=== PATIENT | female | born 1930 | race Caucasian/White ===

== ENCOUNTER 2016-11-29 16:35 | Emergency (ER) | payer BC, MEDICARE ==
--- NOTE | 2016-11-29 19:27 | RAD ---
Indication: Head injury. CT of the brain was performed without IV contrast. Ventricular structures are midline. No midline shift is noted. The extra-axial spaces are unremarkable. There is central and cortical atrophy. Periventricular lucency consistent with chronic ischemic White matter change is noted. Mastoid air cells and paranasal sinuses are otherwise unremarkable. IMPRESSION: There is no evidence of intracranial mass or hemorrhage. Chronic ischemic White matter change.
--- NOTE | 2016-11-29 19:32 | RAD ---
Indication: Neck pain, neck injury. CT of the cervical spine was obtained in the axial plane. Sagittal and coronal reconstructed images were obtained. Mastoid air cells are otherwise well aerated without evidence of basilar skull fracture. The C1 ring is intact. Calcification of the transverse ligament is noted. This is likely due to degenerative changes of the atlantoaxial joint. There is straightening of the normal lordosis. No compression fracture is noted. At C2-C3 spondylitic ridge is noted. Right facet arthropathy is noted. No central or foraminal stenosis is noted. At C3-C4 spondylitic ridge with right uncovertebral joint hypertrophy and right facet arthropathy is noted. No central or foraminal stenosis is noted. At C4-C5 there is grade 1 spondylolisthesis noted. Degenerative joint disease is noted. Bilateral facet arthropathy is noted. There is suggestion of bilateral foraminal stenosis at this level. At C5-C6 spondylitic ridge flattens the thecal sac. Right uncovertebral joint hypertrophy narrows the right foramen. No central stenosis is noted. At C6-C7 degenerative disc disease is noted. Spondylitic ridge flattens the thecal sac. Right uncovertebral joint hypertrophy and right facet arthropathy results in right foraminal stenosis. At C7-T1 facet arthropathy is noted. No central or foraminal stenosis is noted. There may be grade 1 spondylolisthesis of C7 on T1. IMPRESSION: THERE IS NO FRACTURE OF THE CERVICAL SPINE ALTHOUGH THERE IS GRADE 1 SPONDYLOLISTHESIS OF C4 ON 5 AND C6 ON C7 LIKELY DUE TO FACET ARTHROPATHY. NO EVIDENCE OF FACET MALALIGNMENT IS NOTED.??MULTILEVEL DEGENERATIVE DISC DISEASE IS NOTED AT C3 C4-C5, C5-C6 AND C6-C7 WITH RIGHT FORAMINAL STENOSIS AT C5-C6 AND C6-C7.
[2016-11-29 20:18] VITALS: BP 153/73
--- NOTE | 2016-11-30 17:20 | ED ---
Arlene Pelayo Alok, scribed for Armando Roy MD on 11/29/16 at 1918 . Head Injury - HPI Summary HPI Summary: [id number] presents to the ED following a head impact this morning. The patient reportedly tripped over her dog at her home falling on her face on the rug. Pt notes neck pain. Pt denies LOC. Pt denies nausea or visual changes. Pt takes Xerolto for A-fib. - History Of Current Complaint Chief Complaint: EDHeadInjury Stated Complaint: FALL/HEAD INJURY Time Seen by Provider: 11/29/16 18:36 Hx Obtained From: Patient Mechanism Of Injury: Fall From A Standing Position Onset/Duration: Started Hours Ago, Traumatic, Still Present Onset of Pain: Immediate Severity Currently: Moderate Severity Initially: Moderate Pain Intensity: 2 Pain Scale Used: 0-10 Numeric Location of Head Injury: Frontal Associated Signs And Symptoms: Neck Pain - Allergies/Home Medications Allergies/Adverse Reactions: Allergies Allergy/AdvReac Type Severity Reaction Status Date / Time Penicillin V Allergy Severe Swelling Verified 10/21/16 11:14 [From Penicillin VK Of Potassium] Face,Lips,& Throat Shellfish-derived Products Allergy Pain Verified 10/21/16 11:14 Vancomycin AdvReac Severe Itching Verified 10/21/16 11:14 PMH/Surg Hx/FS Hx/Imm Hx Endocrine/Hematology History: Denies: Hx Diabetes, Hx Thyroid Disease, Hx Anemia, Hx Unexplained Bleeding Cardiovascular History: Reports: Hx Congestive Heart Failure, Hx Hypercholesterolemia, Hx Hypertension - ON MEDS, Other Cardiovascular Problems/ Disorders - HX OF A FIB AND MULTIPLE CARDIOVERSIONS; on xarelto Denies: Hx Aneurysm, Hx Angina, Hx Angioplasty, Hx Auto Implanted Cardiovert Defib, Hx Cardiac Arrest, Hx Cardiomegaly, Hx Congenital Heart Disease, Hx Coronary Artery Disease, Hx Deep Vein Thrombosis, Hx Hypotension, Hx Pacemaker/ ICD, Hx Peripheral Vascular Disease, Hx Rheumatic Fever, Hx Syncope, Hx Valvular Heart Disease Respiratory History: Reports: Hx Chronic Obstructive Pulmonary Disease (COPD), Hx Pneumonia Denies: Hx Asthma, Hx Chronic Bronchitis, Hx Cystic Fibrosis, Hx Lung Cancer , Hx Pleural Effusion, Hx Pulmonary Edema, Hx Pulmonary Embolism, Hx Seasonal Allergies, Hx Sleep Apnea, Other Respiratory Problems/Disorders GI History: Denies: Hx Ulcer, Other GI Disorders History: Denies: Hx Dialysis Musculoskeletal History: Reports: Hx Arthritis - ALL OVER Denies: Hx Osteoporosis, Other Musculoskeletal History Sensory History: Reports: Hx Contacts or Glasses Denies: Hx Cataracts, Hx Eye Injury, Hx Eye Prosthesis, Hx Glaucoma, Hx Macular Degeneration, Hx Vision Problem, Hx Deafness, Hx Hearing Aid, Hx Hearing Problem, Other Sensory Impairments Opthamlomology History: Reports: Hx Contacts or Glasses Denies: Hx Cataracts, Hx Eye Injury, Hx Eye Prosthesis, Hx Glaucoma, Hx Macular Degeneration, Hx Vision Problem, Other Sensory Impairments Neurological History: Reports: Other Neuro Impairments/Disorders - neuropathy right lower leg. PAIN CLINIC PT. Denies: Hx Dementia, Hx Developmental Delay, Hx Headaches, Hx Migraine, Hx Seizures, Hx Spinal Cord Injury, Hx Transient Ischemic Attacks (TIA) Psychiatric History: Reports: Other Psychiatric Issues/Disorders - claustrophobia Denies: Hx Panic Disorder - Cancer History Hx Chemotherapy: No Hx Radiation Therapy: No - Surgical History Surgery Procedure, Year, and Place: LT knee replacement 2011,[facility] [place]. rotator cuff right 2002 [facility]. bilat carpal tunnel releases 2002 [facility]. 1992-LIPOMA REMOVED FROM BACK. BILATERAL CATARACTS [facility]. RT INGUINAL HERNIORRHAPHY 06/14/15 [facility]. MOHS TO NOSE-2013/[facility] [place] Hx Anesthesia Reactions: Yes - ATRIAL FIB W/HERNIA & KNEE/CARDIOVERTED PER PT - Immunization History Date of Tetanus Vaccine: 05/2014 Date of Influenza Vaccine: 2014 Infectious Disease History: No Infectious Disease History: Denies: Hx Hepatitis, Hx Human Immunodeficiency Virus (HIV), Hx Tuberculosis , Traveled Outside the in Last 30 Days - Family History Known Family History: Negative: Cardiac Disease - Social History Occupation: Retired Alcohol Use: None Alcohol Amount: ONE GLASS WHITE WINE Substance Use Type: Reports: None Substance Use Comment - Amount & Last Used: ONE GLASS WHITE WINE Smoking Status (MU): Former Smoker Type: Cigarettes Amount Used/How Often: 1/2 PPD Have You Smoked in the Last Year: Yes Review of Systems Negative: Fever Negative: Blurred Vision Negative: Nausea Positive: Other - neck pain Positive: Bruising All Other Systems Reviewed And Are Negative: Yes Physical Exam Triage Information Reviewed: Yes Vital Signs On Initial Exam: Initial Vitals Temp Pulse Resp BP Pulse Ox 98.0 F 98 16 125/82 96 11/29/16 16:52 11/29/16 16:52 11/29/16 16:52 11/29/16 16:52 11/29/16 16:52 Vital Signs Reviewed: Yes Appearance: Positive: Well-Appearing, No Pain Distress Skin: Positive: Warm, Skin Color Reflects Adequate Perfusion, Dry, Other - Ecchymosis over nose and forehead Head/Face: Positive: Other - Ecchymosis over nose and forehead Eyes: Positive: Normal ENT: Positive: Normal ENT inspection Neck: Positive: Other: - Tender cervical midline of neck Respiratory/Lung Sounds: Positive: Clear to Auscultation, Breath Sounds Present Cardiovascular: Positive: RRR Abdomen Description: Positive: Nontender, Soft Bowel Sounds: Positive: Present Musculoskeletal: Positive: Other - Tender cervical midline of neck Neurological: Positive: Normal Psychiatric: Positive: Normal, Affect/Mood Appropriate - Nicolette Coma Scale Coma Scale Total: 15 Diagnostics - Vital Signs Vital Signs Temp Pulse Resp BP Pulse Ox 11/29/16 17:37 97.9 F 78 18 133/75 95 11/29/16 16:52 98.0 F 98 16 125/82 96 - Laboratory Lab Statement: Any lab studies that have been ordered have been reviewed, and results considered in the medical decision making process. - CT Brain CT CT Interpretation: Positive (See Comments) - IMPRESSION: There is no evidence of intracranial mass or hemorrhage. Chronic ischemic White matter change. CT Interpretation Completed By: Radiologist Cervical Spine CT CT Interpretation: Positive (See Comments) - IMPRESSION: THERE IS NO FRACTURE OF THE CERVICAL SPINE ALTHOUGH THERE IS GRADE 1 SPONDYLOLISTHESIS OF C4 ON 5 AND C6 ON C7 LIKELY DUE TO FACET ARTHROPATHY. NO EVIDENCE OF FACET MALALIGNMENT IS NOTED.??MULTILEVEL DEGENERATIVE DISC DISEASE IS NOTED AT C3 C4-C5, C5-C6 AND C6-C7 WITH RIGHT FORAMINAL STENOSIS AT C5-C6 AND C6-C7. CT Interpretation Completed By: Radiologist Head Injury Course/Dx Course Of Treatment: Ms. Nath tripped over her dog and hit her head on the floor. She has ecchymosis around her nose without a septal hematoma. She is tender in her para cervicle area. CT scans are negative (she is on xarelto). - Diagnoses Provider Diagnoses: Head injury due to trauma, Cervical strain, acute Discharge - Discharge Plan Condition: Stable Disposition: HOME Patient Education Materials: Cervical Strain (ED) Referrals: Lourdes Weinstein MD [Primary Care Provider] - The documentation as recorded by the Zohaib hsiehe,Raji accurately reflects the service I personally performed and the decisions made by me, Armando Roy MD.
== END 2016-11-29 20:35 | disposition home or self-care (01) ==
LOC: ED 16:35
DX: S09.90XA Unspecified injury of head, initial encounter (principal); S16.1XXA Strain of muscle, fascia and tendon at neck level, initial encounter; M54.2 Cervicalgia; Z87.891 Personal history of nicotine dependence; W19.XXXA Unspecified fall, initial encounter; Y93.9 Activity, unspecified; Y92.9 Unspecified place or not applicable
CPT/HCPCS: 70450; 72125; 99282

== ENCOUNTER 2017-01-30 13:32 | Emergency (ER) | payer BC, MEDICARE ==
--- NOTE | 2017-01-30 14:15 | ED ---
Lower Extremity - HPI Summary HPI Summary: Pt here w/ abrupt onset Lt knee pain this morning. Went about her morning routine (nothing more, nothing less) and as she was sitting reading the paper, her knee started to hurt. When she got up, pain was worse w/ weight bearing. Put her knee brace on from years ago and tried to go to her dr's appt this morning but pain was too bad w/ weight bearing, she decided to come here. No pain at rest and no swelling, redness or fever to touch - no fever, chills, N/V /D. Denies numbness, tingling, weakness. Pain w/ flexion. No trauma. H/o TKR here "years ago" - no complications. Tried tylenol w/ minimal relief. Can't take NSAID's as she's on anti-coag (xarelto) for a. fib. - History of Current Complaint Chief Complaint: EDExtremityLower Stated Complaint: LT KNEE PAIN/UNABLE TO WALK Time Seen by Provider: 01/30/17 13:39 Hx Obtained From: Patient Pain Intensity: 9 - Allergies/Home Medications Allergies/Adverse Reactions: Allergies Allergy/AdvReac Type Severity Reaction Status Date / Time Penicillin V Allergy Severe Swelling Verified 12/12/16 11:24 [From Penicillin VK Of Potassium] Face,Lips,& Throat Shellfish-derived Products Allergy Pain Verified 12/12/16 11:24 Vancomycin AdvReac Severe Itching Verified 12/12/16 11:24 PMH/Surg Hx/FS Hx/Imm Hx Previously Healthy: Yes Endocrine/Hematology History: Reports: Hx Anticoagulant Therapy - xarelto Denies: Hx Diabetes, Hx Thyroid Disease, Hx Anemia, Hx Unexplained Bleeding Cardiovascular History: Reports: Hx Atrial Fibrillation, Hx Congestive Heart Failure, Hx Hypercholesterolemia, Hx Hypertension - ON MEDS, Other Cardiovascular Problems/Disorders - HX OF A FIB AND MULTIPLE CARDIOVERSIONS; on xarelto Denies: Hx Aneurysm, Hx Angina, Hx Angioplasty, Hx Auto Implanted Cardiovert Defib, Hx Cardiac Arrest, Hx Cardiomegaly, Hx Congenital Heart Disease, Hx Coronary Artery Disease, Hx Deep Vein Thrombosis, Hx Hypotension, Hx Pacemaker/ ICD, Hx Peripheral Vascular Disease, Hx Rheumatic Fever, Hx Syncope, Hx Valvular Heart Disease Respiratory History: Reports: Hx Chronic Obstructive Pulmonary Disease (COPD), Hx Pneumonia Denies: Hx Asthma, Hx Chronic Bronchitis, Hx Cystic Fibrosis, Hx Lung Cancer , Hx Pleural Effusion, Hx Pulmonary Edema, Hx Pulmonary Embolism, Hx Seasonal Allergies, Hx Sleep Apnea, Other Respiratory Problems/Disorders GI History: Denies: Hx Ulcer, Other GI Disorders History: Denies: Hx Dialysis Musculoskeletal History: Reports: Hx Arthritis - ALL OVER Denies: Hx Osteoporosis, Other Musculoskeletal History Sensory History: Reports: Hx Contacts or Glasses Denies: Hx Cataracts, Hx Eye Injury, Hx Eye Prosthesis, Hx Glaucoma, Hx Macular Degeneration, Hx Vision Problem, Hx Deafness, Hx Hearing Aid, Hx Hearing Problem, Other Sensory Impairments Opthamlomology History: Reports: Hx Contacts or Glasses Denies: Hx Cataracts, Hx Eye Injury, Hx Eye Prosthesis, Hx Glaucoma, Hx Macular Degeneration, Hx Vision Problem, Other Sensory Impairments Neurological History: Reports: Other Neuro Impairments/Disorders - neuropathy right lower leg. PAIN CLINIC PT. Denies: Hx Dementia, Hx Developmental Delay, Hx Headaches, Hx Migraine, Hx Seizures, Hx Spinal Cord Injury, Hx Transient Ischemic Attacks (TIA) Psychiatric History: Reports: Other Psychiatric Issues/Disorders - claustrophobia Denies: Hx Panic Disorder - Cancer History Hx Chemotherapy: No Hx Radiation Therapy: No - Surgical History Surgery Procedure, Year, and Place: LT knee replacement 2011,[facility] [place]. rotator cuff right 2002 [facility]. bilat carpal tunnel releases 2002 [facility]. 1992-LIPOMA REMOVED FROM BACK. BILATERAL CATARACTS [facility]. RT INGUINAL HERNIORRHAPHY 06/14/15 [facility]. MOHS TO NOSE-2013/ Hx Anesthesia Reactions: Yes - ATRIAL FIB W/HERNIA & KNEE/CARDIOVERTED PER PT - Immunization History Date of Tetanus Vaccine: 05/2014 Date of Influenza Vaccine: 2014 Infectious Disease History: Denies: Hx Hepatitis, Hx Human Immunodeficiency Virus (HIV), Hx Tuberculosis , Traveled Outside the [place] in Last 30 Days - Family History Known Family History: Negative: Cardiac Disease - Social History Occupation: Retired Lives: Alone Alcohol Use: None Alcohol Amount: ONE GLASS WHITE WINE Hx Substance Use: No Substance Use Type: Reports: None Substance Use Comment - Amount & Last Used: ONE GLASS WHITE WINE Hx Tobacco Use: Yes Smoking Status (MU): Former Smoker Type: Cigarettes Amount Used/How Often: 1/2 PPD Have You Smoked in the Last Year: Yes Review of Systems Constitutional: Negative Negative: Fever, Chills, Fatigue Cardiovascular: Negative Negative: Chest Pain Respiratory: Negative Negative: Shortness Of Breath Gastrointestinal: Negative Negative: Abdominal Pain, Vomiting, Diarrhea, Nausea Negative: dysuria Musculoskeletal: Other - see HPI Skin: Negative Neurological: Negative Psychological: Normal All Other Systems Reviewed And Are Negative: Yes Physical Exam Triage Information Reviewed: Yes Vital Signs On Initial Exam: Initial Vitals Temp Pulse Resp BP Pulse Ox 97.7 F 90 17 118/65 96 01/30/17 13:35 01/30/17 13:35 01/30/17 13:35 01/30/17 13:35 01/30/17 13:35 Vital Signs Reviewed: Yes Appearance: Positive: Well-Appearing, No Pain Distress, Well-Nourished Skin: Positive: Warm, Dry - old healed surgical scar over Lt anterior knee - no erythema, no edema,no ecchymosis, no fever to touch, no lesions Head/Face: Positive: Normal Head/Face Inspection Eyes: Positive: EOMI ENT: Positive: Hearing grossly normal Respiratory/Lung Sounds: Positive: Breath Sounds Present Cardiovascular: Positive: Pulses are Symmetrical in both Upper and Lower Extremities Musculoskeletal: Positive: Limited @ - Lt knee flexion limited d/t pain - otherwise, moving ankle/toes well here - no pain w/ hip movement; knee is NTTP as are tibia/fibula/femur Neurological: Positive: Normal, Sensory/Motor Intact, Alert, Oriented to Person Place, Time, CN Intact II-III Psychiatric: Positive: Normal Diagnostics - Vital Signs Vital Signs Temp Pulse Resp BP Pulse Ox 01/30/17 13:35 97.7 F 90 17 118/65 96 - Laboratory Result Diagrams: 01/30/17 15:55 01/30/17 15:55 Lab Statement: Any lab studies that have been ordered have been reviewed, and results considered in the medical decision making process. Lower Extremity Course/Dx - Course Course Of Treatment: Pt presents w/ sudden onset Lt knee pain which progressively worsened with weight bearing. No s/sx of infection or trauma - imaging and labs are unremarkable for acute pathology. U/S was not performed as pt is complaining of anterior knee pain and there is no edema, no fever to touch , no skin changes here - she is also on xarelto for a. fib. Since she has a TKR here, advised non-weight bearing and close f/u w/ ortho. In the meantime, discussed what she would like for pain control - she reports narcotics hit her hard - does not want these. Would like to try tylenol and prednisone. Agrees to avoid weight bearing. Will call ortho Thursday and get appt - they already offered her one Thursday so she's hoping they can still fit her in. Reviewed danger s/sx of when to return to ED. Pt and family agree w/ plan. - Diagnoses Provider Diagnoses: Left knee pain Discharge - Discharge Plan Condition: Stable Disposition: HOME Prescriptions: predniSONE TAB* [Deltasone TAB*] 20 mg PO DAILY #4 tab Patient Education Materials: Crutch Instructions (ED), Knee Pain (ED) Referrals: Lourdes Weinstein MD [Primary Care Provider] - Additional Instructions: NO WEIGHT BEARING until seen by orthopedics Thursday - call Thursday for appointment. You may have damage to your internal hardware and weight bearing may cause further damage. Follow-up in ED if pain is poorly controlled, you develop redness/swelling/fever /chills/streaking up leg
[2017-01-30 14:28] VITALS: BP 134/68
--- NOTE | 2017-01-30 15:02 | RAD ---
HISTORY: Left knee pain. COMPARISONS: June 06, 2015 VIEWS: 4, Frontal, lateral, axial, and oblique views of the left knee FINDINGS: BONE DENSITY: Normal. BONES: The patient is status post left knee arthroplasty. There is no hardware failure or osteolysis. JOINTS: The patient is status post left knee arthroplasty. ALIGNMENT: There is no dislocation. SOFT TISSUES: There is peripheral arterial calcification. OTHER FINDINGS: None. IMPRESSION: 1. STATUS POST LEFT KNEE ARTHROPLASTY. 2. PERIPHERAL ARTERIAL DISEASE. 3. NO ACUTE OSSEOUS INJURY. IF SYMPTOMS PERSIST, RECOMMEND REPEAT IMAGING
[2017-01-30 16:02] LABS: Hematocrit 45 % (35-47); Hemoglobin 14.8 g/dl (12.0-16.0); Mean Corpuscular HGB Conc 33 g/dl (31-36); Mean Corpuscular Hemoglobin 30 pg (27-31); Mean Corpuscular Volume 90 fL (80-97); Mean Platelet Volume 8 um3 (7.4-10.4); Red Cell Distribution Width 14 % (10.5-15); White Blood Count 7.2 10^3/ul (3.5-10.8)
[2017-01-30 16:17] LABS: Albumin 4.1 g/dL (3.2-5.2); BUN/Creatinine Ratio 16.7 (8-20); C Reactive Protein 3.36 mg/L (< 5.00); Calcium 9.6 mg/dL (8.6-10.3); EGFR African American 99.2 (>60); EGFR Non-African American 77.2 (>60); Globulin 2.7 g/dL (2-4); Potassium 3.4 mmol/L (3.5-5.0); Total Bilirubin 0.6 mg/dL (0.2-1.0); Total Protein 6.8 g/dL (6.4-8.9); Uric Acid 3.3 mg/dL (2.3-6.6)
[2017-01-30] MEDS ORDERED: predniSONE TAB* 20 MG PO ONE (17:47)
[2017-01-30] MEDS ORDERED: Acetaminophen TAB* 325 MG PO ONE (17:48)
== END 2017-01-30 18:32 | disposition home or self-care (01) ==
LOC: ED 13:32
DX: M25.562 Pain in left knee (principal); I48.91 Unspecified atrial fibrillation; Z79.01 Long term (current) use of anticoagulants; I50.9 Heart failure, unspecified; E78.00 Pure hypercholesterolemia, unspecified; I10 Essential (primary) hypertension; Z88.0 Allergy status to penicillin; Z87.891 Personal history of nicotine dependence; I73.9 Peripheral vascular disease, unspecified
CPT/HCPCS: 36415; 80053; 83605; 84550; 85025; 86140; 99282; A9270-GY; J7512

== ENCOUNTER 2018-11-11 13:34 | Emergency (ER) | payer MEDICARE, OTHER ==
--- OUTSIDE RECORDS SUMMARY | 2018-11-11 13:39 | XMS REPORT | Continuity of Care Document ---
:1930 External Reference #:[id number] Author Name Nadia Meléndez PA-C Address [address] [place] [address] [place] [address] Care Team Providers Name Role Phone Lourdes Weinstein MD Care Team Information Diamond Driller Unavailable Lourdes Weinstein MD Primary Care Physician Unavailable Payers Date Identification Numbers Payment Provider Subscriber Policy Number: [id number] Medicare [facility] PayID: [id number] [facility] [address] [place] [address] Policy Number: [id number] [employer] [facility] PayID: [id number] [address] [place] [address] Problems Active Problems Provider Date Atrial fibrillation Javier Mills MD Onset: 11/25/2011 Note: on discharge day from left TNR developed a fib; cardioverted 7 different times over a month; on Tikosyn (started during 3 day admission Feb 2012) and Xarelto Apr 2013 after Pradaxa for 5 months; no blood clots ever in recent or remote past; She can feel fibrillation which usually lasts a couple of days every couple of months; Low back pain Javier Mills MD Onset: 05/27/2000 Note: sees Dr Caputo since 1998; also carpal tunnel w/u Essential hypertension Javier Mills MD Onset: 05/27/2001 Note: no complications Tobacco user Javier Mills MD Onset: 05/27/2007 Note: quit in 2007 Zenker's diverticulum Lourdes Weinstein MD Onset: 01/02/2016 Electrocardiogram abnormal Nelson Champion MD Onset: 08/25/2013 Incontinence of feces Nadia Meléndez PA-C Onset: 06/21/2018 Social History Type Date Description Comments Sex Unknown Tobacco Use Start: Unknown End: Unknown Patient is a former smoker Smoking Status Reviewed: 10/28/18 Patient is a former smoker Allergies, Adverse Reactions, Alerts Active Allergies Reaction Severity Comments Date Penicillin 05/27/2013 Vancomycin severe itching 09/14/2015 Shellfish-Derived Products pain in feet gout 08/25/2013 Nitrofurantoin "HOT RASH" 06/21/2018 Medications Active Medications SIG Qnty Indications Ordering Date Provider Xarelto 1 by mouth every 90tabs Charlotte Championlm 11/21/2014 15mg Tablets day DMD Metoprolol Tartrate 1 Tablet qod 90tabs Charlotte Championlm 02/23/2013 25mg DMD Tablets Gabapentin prn pain Takes 120caps Unknown 02/19/2010 100mg Capsules 300 mg at hs Metaxalone take 1 tablet 3 30tabs Unknown 02/16/2007 800mg Tablets times a day as needed Culturelle Unknown Citracal +D3 Unknown Chlorthalidone Thu-Thu-Thu Dennis Championcolm 25mg DMD Tablets Digoxin Foster,Thelma,[employer] 125mcg Tablets Cartia XT Mauser, 180mg Caps ER MD True 24HR Fenofibrate Corinna, 48mg Tablets MD Chandu Freed apply to affected Unknown 1% Gel area twice a day, as needed Spiriva Handihaler 1 inhalation by 3caps Unknown 18mcg mouth every Capsules evening Advair Diskus 2 puffs once 60units Unknown daily 250-50mcg/Dose Aerosol Tylenol prn Unknown 325mg Tablets Vitamin C 1 po qd Unknown 500mg Tablets History Medications Amiodarone HCL 1/2 tab by 45tabs I48.0 Charlotte Championlm Dyana, 09/22/2013 - 200mg mouth every day 06/20/2018 Tablets Advair Diskus Unknown - 01/16/2016 Metoprolol Tartrate Unknown - 01/16/2016 Tikosyn Unknown - 01/16/2016 Xarelto Unknown - 01/16/2016 Allopurinol Unknown - 01/16/2016 Vitamin C Unknown - 06/20/2018 Xopenex HFA 2 puff daily Kevin Bell MD - 45mcg/Act prn 06/20/2018 Aerosol Vital Signs Date Vital Result Comment 10/28/2018 1:38pm Height 63 inches 5'3" Weight 118.00 lb BP Systolic 133 mmHg BP Diastolic 94 mmHg Heart Rate 91 /min BMI (Body Mass Index) 20.9 kg/m2 06/21/2018 10:43am Height 63 inches 5'3" Weight 119.00 lb BP Systolic 122 mmHg BP Diastolic 70 mmHg Heart Rate 98 /min BMI (Body Mass Index) 21.1 kg/m2 02/27/2016 3:57pm Height 63.25 inches 5'3.25" Weight 125.00 lb BP Systolic 158 mmHg BP Diastolic 74 mmHg Heart Rate 65 /min BMI (Body Mass Index) 22.0 kg/m2 01/16/2016 9:11am Height 63.25 inches 5'3.25" Weight 123.50 lb BP Systolic 142 mmHg BP Diastolic 78 mmHg Heart Rate 54 /min BMI (Body Mass Index) 21.7 kg/m2 05/27/2013 11:55am Height 63.25 inches 5'3.25" Weight 131.00 lb BP Systolic 118 mmHg BP Diastolic 82 mmHg Heart Rate 19600 /min irregular BMI (Body Mass Index) 23.0 kg/m2 Results Test Date Facility Test Result H/L Range Note Laboratory test 09/11/2015 N2N/CCD Import C Reactive 35.32 mg/L High < 5.00 1 finding Protein Lyme Disease Serology Negative Negative 2 Laboratory test 12/06/2014 N2N/CCD Import TSH (Thyroid 1.12 ?IU/mL 0.34- 5.60 finding Stim Horm) BMP Basic 12/06/2014 N2N/CCD Import Anion Gap 6 mmol/L 2-11 Metabolic Panel (8) BUN/Creatinine Ratio 24.2 High 8-20 Blood Urea Nitrogen 15 mg/dL 6-24 Calcium 9.3 mg/dL 8.6-10.3 Chloride 106 mmol/L 101-111 Co2 Carbon Dioxide 28 mmol/L 22-32 Creatinine 0.62 mg/dL 0.51-0.95 Egfr 118.8 >60 Egfr Non- 92.4 >60 Glucose 106 mg/dL High 70-100 Potassium 4.1 mmol/L 3.5-5.0 Sodium 140 mmol/L 133-145 3 Laboratory test finding 09/06/2013 N2N/CCD Import Anion Gap 6 mmol/L 2- 11 BUN/Creatinine Ratio 18.8 8-20 Blood Urea Nitrogen 16 mg/dL 6-24 Calcium 9.4 mg/dL 8.6-10.3 Chloride 104 mmol/L 101-111 Co2 Carbon Dioxide 29 mmol/L 22-32 Creatinine 0.85 mg/dL 0.51-0.95 Egfr 82.8 >60 Egfr Non- 64.4 >60 Glucose 90 mg/dL 70-100 Hematocrit 43 % 35-47 Hemoglobin 14.3 g/dL 12.0-16.0 Mean Corpuscular HGB Conc 33 g/dL 31-36 Mean Corpuscular Hemoglobin 29 pg 27-31 Mean Corpuscular Volume 88 fL 80-97 Mean Platelet Volume 8 um3 7.4-10.4 Platelet Count 336 10^3/uL 150-450 Potassium 4.6 mmol/L 3.7-5.6 Red Blood Count 4.90 10^6/uL 4.0-5.4 Red Cell Distribution Width 15 % 10.5-15 Sodium 139 mmol/L 133-145 4 White Blood Count 7.3 10^3/uL 4.8-10.8 CBC Auto Diff 05/27/2013 [facility] White Blood Count 8.9 10^3/uL 4.8-10.8 Red Blood Count 5.12 10^6/uL 4.0-5.4 Hemoglobin 15.1 g/dL 12.0-16.0 Hematocrit 46 % 35-47 Mean Corpuscular Volume 89 fL 80-97 Mean Corpuscular Hemoglobin 30 pg 27-31 Mean Corpuscular HGB Conc 33 g/dL 31-36 Red Cell Distribution Width 16 % High 10.5-15 Platelet Count 329 10^3/uL 150-450 Mean Platelet Volume 10 um3 7.4-10.4 Abs Neutrophils 6.3 10^3/uL 1.5-7.7 Abs Lymphocytes 1.7 10^3/uL 1.0-4.8 Abs Monocytes 0.6 10^3/uL 0-0.8 Abs Eosinophils 0.2 10^3/uL 0-0.6 Abs Basophils 0.1 10^3/uL 0-0.2 Abs Nucleated RBC 0.01 10^3/uL Granulocyte % 70.7 % 38-83 Lymphocyte % 19.2 % Low 25-47 Monocyte % 7.3 % 1-9 Eosinophil % 2.0 % 0-6 Basophil % 0.8 % 0-2 Nucleated Red Blood Cells % 0.2 Comp Metabolic Panel 05/27/2013 [facility] Sodium 139 mmol/L 133-145 Potassium 4.8 mmol/L 3.5-5.0 Chloride 103 mmol/L 101-111 Co2 Carbon Dioxide 28.0 mmol/L 22-32 Anion Gap 8.0 mmol/L 2-11 Glucose 96 mg/dL 70-100 Blood Urea Nitrogen 20 mg/dL 6-24 Creatinine 0.80 mg/dL 0.50-1.40 BUN/Creatinine Ratio 25.0 High 8-20 Calcium 9.6 mg/dL 8.1-9.9 Total Protein 6.0 g/dL Low 6.2-8.1 Albumin 3.8 g/dL 3.2-5.2 Globulin 2.2 g/dL 2-4 Albumin/Globulin Ratio 1.7 1-3 Total Bilirubin 0.6 mg/dL 0.4-1.5 Alkaline Phosphatase 62 U/L 30-110 Alt 28 U/L 14-54 Ast 31 U/L 12-42 Egfr Non- 69.0 >60 Egfr 88.8 >60 5 Laboratory test 05/27/2013 [facility] Vitamin B12 480 pg/mL 180-914 6 finding Xray 12/31/2011 [facility] Radiology CT Abd/Pel W <pending> Xray 12/29/2011 [facility] Radiology US Abdomen <pending> Complete Xray 12/29/2011 [facility] Radiology Abdomen/KUB 1 VW <pending> 1 [facility] 658 2 Acute inflammation: >10.00 3 Because ethnic data is not always readily available, this report includes an eGFR for both -Americans and non- Americans. The National Kidney Disease Education Program (NKDEP) does not endorse the use of the MDRD equation for patients that are not between the ages of 18 and 70, are , have extremes of body size, muscle mass, or nutritional status, or are non- or non-. According to the National Kidney Foundation, irrespective of diagnosis, the stage of the disease is based on the level of kidney function: Stage Description GFR(mL/min/1.73 m(2)) 1 Kidney damage with normal or decreased GFR 90 2 Kidney damage with mild decrease in GFR 60-89 3 Moderate decrease in GFR 30-59 4 Severe decrease in GFR 15-29 5 Kidney failure <15 (or dialysis) 4 Because ethnic data is not always readily available, this report includes an eGFR for both -Americans and non- Americans. The National Kidney Disease Education Program (NKDEP) does not endorse the use of the MDRD equation for patients that are not between the ages of 18 and 70, are , have extremes of body size, muscle mass, or nutritional status, or are non- or non-. According to the National Kidney Foundation, irrespective of diagnosis, the stage of the disease is based on the level of kidney function: Stage Description GFR(mL/min/1.73 m(2)) 1 Kidney damage with normal or decreased GFR 90 2 Kidney damage with mild decrease in GFR 60-89 3 Moderate decrease in GFR 30-59 4 Severe decrease in GFR 15-29 5 Kidney failure <15 (or dialysis) 5 Because ethnic data is not always readily available, this report includes an eGFR for both -Americans and non- Americans. The National Kidney Disease Education Program (NKDEP) does not endorse the use of the MDRD equation for patients that are not between the ages of 18 and 70, are , have extremes of body size, muscle mass, or nutritional status, or are non- or non-. According to the National Kidney Foundation, irrespective of diagnosis, the stage of the disease is based on the level of kidney function: Stage Description GFR(mL/min/1.73 m(2)) 1 Kidney damage with normal or decreased GFR 90 2 Kidney damage with mild decrease in GFR 60-89 3 Moderate decrease in GFR 30-59 4 Severe decrease in GFR 15-29 5 Kidney failure <15 (or dialysis) 6 please send copies sourav Dumont and Chirag Champion Procedures Date Code Description Status 06/12/2003 23960 Colonoscopy Completed Encounters Type Date Location Provider Dx Diagnosis Office Visit 06/21/2018 Gastroenterology Nadia Clemente R15.9 Full incontinence 10:30a [facility] PA-C Office Visit 02/27/2016 Gastroenterology Javier Leon R15.9 Full incontinence 3:45p [facility] MD of feces K59.00 Constipation, unspecified Office 01/16/2016 Gastroenterology Bryanna R15.9 Full incontinence Visit 9:15a [facility] URGENT CARE TECHNICIAN-C Office 05/27/2013 Gastroenterology Javier Leon 787.91 Diarrhea Visit 11:30a [facility] MD Office 07/08/2010 [facility]enter[facility] Javier Leon 787.91 Diarrhea Visit 4:00p [facility] MD Office 05/20/2010 [facility]enter[facility] Javier Leon 787.60 Full Incontinence Visit 3:00p [facility] MD Of Fe[facility]
--- OUTSIDE RECORDS SUMMARY | 2018-11-11 13:40 | XMS REPORT | Continuity of Care Document ---
:1930 External Reference #:[id number] Author Name Tati Newman Care Team Providers Name Role Phone Lourdes Weinstein MD Primary Care Physician Unavailable Payers Date Identification Numbers Payment Provider Subscriber Effective: 1999 Policy Number: [id number] Medicare [facility] PayID: [id number] [address] [place] [address] Policy Number: [id number] [facility] PayID: [id number] [address] [place] [address] Expires: 2017 Policy Number: [id number] [facility] Group Number: [id number] [employer] Name: Onofre# [id number] [address] PayID: [id number] [place] [address] Advance Directives Type Date Description Status Comment Other Directive 07/13/2017 Health Care Proxy Current and Verified MOLST 06/21/2017 MOLST Current and Verified Problems Active Problems Provider Date Atrial fibrillation Nelson Champion M.D. Onset: 02/23/2013 Electrocardiogram abnormal Nelson Champion M.D. Onset: 08/25/2013 Zenker's diverticulum Lourdes Weinstein M.D. Onset: 01/02/2016 Degeneration of lumbosacral intervertebral Lourdes Weinstein M.D. Onset: 2015 disc Note: spinal stenosis L3/L4 L5/S1 Osteoarthritis of knee Lourdes Weinstein M.D. Onset: 02/11/2016 Note: R Psoas tendinitis Onset: Note: Dr. Grace Basal cell carcinoma of ear Lourdes Weinstein M.D. Onset: 03/06/2016 Smoker Lourdes Weinstein M.D. Onset: 03/17/2016 Squamous cell carcinoma Onset: H/O: gout Lourdes Weinstein M.D. Onset: 03/17/2016 Resolved Problems Fever Michael Manjarrez M.D. Onset: 01/22/2012 Resolved: 01/02/2016 Cellulitis and abscess of leg Michael Manjarrez M.D. Onset: 06/10/2012 Resolved: 01/02/2016 Non-organic discontinuous encopresis Lourdes Weinstein M.D. Onset: 03/05/2016 Resolved: 04/01/2016 Family History Date Family Member(s) Observation Comments Father Heart Disease 79 Mother due to Unknown Causes () First Daughter 54 Siblings None Social History Type Date Description Comments Sex Unknown Marital Status Lives With Alone Occupation Retired Tobacco Use Start: Unknown End: Former Cigarette Smoker ETOH Use Occasionally consumes wine Recreational Drug Use Denies Drug Use Tobacco Use Start: Unknown End: Patient is a former Unknown smoker Smoking Status Reviewed: 11/02/18 Patient is a former smoker Exercise Type/Frequency Exercises regularly walks 2-3 x daily aprox 2 miles daily, canoe (weather permitting) Allergies, Adverse Reactions, Alerts Active Allergies Reaction Severity Comments Date Penicillin Urticaria 01/22/2012 Shellfish-derived Products pain in feet gout 08/25/2013 Red Wine bout of gout 08/25/2013 Vancomycin severe itching 09/14/2015 Statins increased CK 04/08/2017 Nitrofurantoin rash 09/21/2017 Medications Active Medications SIG Qnty Indications Ordering Date Provider Fenofibrate Take One Tablet By 90tabs E78.5 Antonieta 05/13/2018 120mg Mouth Every Day Marbella Hines Tablets [facility] Soluble Fiber 1 1/2 tabs by mouth Lourdes Weinstein 04/14/2018 Therapy three times daily M.D. 500mg Tablets Shingrix intramuscular x 1 1units Lourdes Weinstein, 04/14/2018 50mcg/0.5ML then repeat in 4 M.D. Suspension Rec months Metoprolol Succinate 1/2 tablet by mouth 45tabs Nelson Jimenez 03/31/2018 ER every morning [facility] 25mg Tablets ER 24HR Diltiazem CD 1 by mouth every 30caps True Minaya 02/11/2018 180mg Caps day, long acting, Marbella Mathews ER 24HR use generic Digoxin Take One Tablet By 90tabs Thelma Garcia, 01/07/2018 125mcg Tablets Mouth Every Day N.P. Tylenol Extra 2 tab twice a day Lourdes Weinstein, 01/07/2017 Strength as needed up to 4 M.D. 500mg Tablets daily Chlorthalidone 1/2 tab by mouth 45tabs Nelson Jimenez 06/24/2016 25mg MWF only Brand, Marbella Tablets Xarelto 1 by mouth every 90tabs Nelson Jimenez 12/17/2015 15mg Tablets day Brand, Marbella Spiriva Handihaler Inhale The Contents 90caps Lourdeselmer Weinstein, Of One Capsule Via M.D. 18mcg Capsules Handihaler By Mouth Every Evening Advair HFA Inhale Two Puffs By 36units Lourdeselmer Weinstein, Mouth Every Day M.D. 115-21mcg/Act Aerosol Tramadol HCL 1 tablet by mouth Unknown 50mg every 4- 6 hours as Tablets needed pain Colcrys as needed Unknown 0.6mg Tablets Gabapentin take 1 tablet in Am Unknown 100mg ... at midday if Capsules needed 300 mg at night Diclofenac Sodium Apply bid prn for Unknown 1% lower back as Gel needed Metaxalone take 1 tablet 2 90tabs Lourdes Weinstein, 800mg times a day as M.D. Tablets needed occassionally once a week Gabapentin at hs occasionally 120caps Unknown 300mg takes 100mg during Capsules day as needed Vitamin C 1 po qd Unknown 500mg Capsules Culturelle 1 po qd Unknown Capsules Citracal 1 po qday 90tabs Unknown Petites/Vitamin D [id number] Tablets History Medications Prednisone take 3 tab QS R06.02 [facility] 02/08/2018 - 10mg Tablets daily x 2 days Marbella Weinstein 02/16/2018 then 2 tab daily x 3 days and then 1 tab daily x 3 days Cephalexin tid Magen, 02/03/2018 - 500mg Capsules ROSANNA Khan 02/13/2018 Metoprolol Succinate ER 1/2 tablet by 30tabs Anahi Pacheco, 01/08/2018 - 25mg mouth every M.DTaylor 01/26/2018 Tablets ER 24HR other day x 12 days. Then D/C 01/31/18. Metoprolol Succinate ER 1/4 tab by True Minaya 01/07/2018 - 50mg mouth every day Marbella Mathews 01/08/2018 Tablets ER 24HR (pt insists on 05/21 present dose ) Diltiazem CD 1 by mouth 30caps True Minaya 12/31/2017 - 120mg Caps ER 24HR every day Marbella Mathews 02/11/2018 Metoprolol Succinate ER 1/2 by mouth 180tabs True Minaya 12/16/2017 - 50mg once a day Marbella Mathews 01/07/2018 Tablets ER 24HR Nitrofurantoin 1 by mouth 14caps N30.01 [facility] 07/13/2017 - Macrocrystal twice a day Marbella Weinstein 07/20/2017 100mg Capsules Metoprolol Succinate ER 1 tablet by 90tabs I48.2 Nelson Jimenez 06/04/2017 - 50mg mouth in the Marbella Champion 12/16/2017 Tablets ER 24HR evening Metoprolol Succinate ER 2 tab by mouth 90tabs I48.2 Nelson Jimenez 03/30/2017 - 25mg every day Marbella Champion 06/04/2017 Tablets ER 24HR Doxycycline Hyclate 1 tablet twice Unknown 02/23/2017 - 100mg a day x 14 days 03/09/2017 Tablets Levalbuterol Tartrate not 15units [facility] 11/24/2016 - 45mcg/Act taking----Inhal Marbella Weinstein 07/13/2017 Aerosol e Two Puffs By Mouth Every 6 Hours as Needed Fenofibrate Take One Tablet 90tabs E78.5 Lourdes 09/22/2016 - 48mg Tablets By Mouth Every Marbella Weinstein 05/13/2018 Day Norvasc 1 by mouth 90tabs Nelson Jimenez 06/30/2016 - 2.5mg Tablets every day Marbella Champion 11/02/2016 Tricor Take One Tablet 90tabs E78.5 Lourdes 04/01/2016 - 48mg Tablets By Mouth Every Marbella Weinstein 09/22/2016 Day Xopenex HFA 2 puffs by 15gm Lourdes 03/17/2016 - 45mcg/Act Aerosol mouth every 6 Marbella Weinstein 11/24/2016 hours as needed Amiodarone HCL 1 tab by mouth 90tabs I48.0 Nelson Jimenez 09/22/2013 - 200mg Tablets every day [facility] Amiodarone HCL 1 tab qd 90tabs 427.31 Nelson Jimenez 08/03/2013 - 200mg Tablets [facility], Marbella 09/22/2013 Valium take 1 one hour 2tabs Erin Caputo, 05/05/2013 - 2mg Tablets prior to MRI, M.DTaylor 05/27/2013 may repeat x 1 if not sedated and still anxious. Xarelto 1 by mouth 30tabs Nelson Jimenez 02/24/2013 - 20mg Tablets every day [facility], Chirag.Barbara 12/17/2015 Metoprolol Succinate ER 1 tab by mouth Nelson Jimenez 02/23/2013 - 25mg twice a day [facility], Chirag.Barbara 02/23/2013 Tablets ER 24HR Metoprolol Tartrate 1/2 by mouth 90tabs Nelson Jimenez 02/23/2013 - 25mg once a day [facility], Marbella 06/04/2016 Tablets Clindamycin HCL simg po 8caps Malachi Grace, 01/28/2012 - 300mg Capsules 1 hour before M.DTaylor 06/12/2015 dental work Coumadin take 1-3 as 90tabs Malachi Grace, 12/10/2011 - 2.5mg Tablets directed at 5pm MDex 11/29/2012 daily Percocet 1-2 tabs po 90tabs Malachi Grace, 12/10/2011 - 5-325mg Tablets q4-6 prn pain M.DTaylor 06/24/2012 1-Methyl 2-Pyrrolidinone Malachi Grace, 12/10/2011 - M.DTaylor 06/24/2012 1-Methyl Liquid Voltaren apply to Unknown - 1% Gel affected area 07/03/2016 twice a day, as needed Colchicine 1 po qid x 1st Unknown - 0.6mg Tablets day then, 1 po 04/01/2016 tid x7 days Tramadol HCL 1/2 tab bid Sanito, - 50mg Tablets MD Mohamud 11/18/2016 Cephalexin Unknown - 250mg Capsules 10/01/2016 Doxycycline Hyclate Unknown - 100mg 10/01/2016 Capsules Sulfamethoxazole/Trimetho Unknown - prim DS 10/01/2016 800-160mg Tablets Colchicine Unknown - 0.6mg Tablets 10/01/2016 Metoprolol Tartrate Unknown - 25mg 10/01/2016 Tablets Diazepam Unknown - 10mg Tablets 11/02/2016 Methylprednisolone Unknown - 4mg TBPK 10/01/2016 Amlodipine Besylate on hold 90tabs David STaylor - 2.5mg currently----1 DO Oh 11/19/2017 Tablets by mouth every FACC day Glucosamine Chondroitin 2 tabs daily Unknown - Complex Advanced 12/21/2017 Tablets Metoprolol Succinate ER 1 by mouth Unknown - 25mg every day in 10/07/2017 Tablets ER 24HR the evening Xopenex HFA 2 puff daily as 15gm Lourdes - 45mcg/Act Aerosol needed Marbella Weinstein 03/17/2016 Prednisone tapered Kevin Bell, - 10mg Tablets 08/24/2013 Spiriva Handihaler daily Am Kevin Bell, - 18mcg 11/18/2013 Capsules Allopurinol 2 po qd for 90tabs Unknown - 100mg Tablets gout 07/27/2013 Pradaxa 1 cap by mouth 180caps Yaneth, - 150mg Capsules twice a day MD Blayne 02/24/2013 Tylenol prn Unknown - 325mg Tablets 07/16/2017 Metoprolol Tartrate One half tablet 90tabs Nelson Jimenez - 50mg po bid Marbella Champion 02/23/2013 Tablets Tikosyn 1 cap by mouth 60caps Nelson D. - 500mcg Capsules twice a day Marbella Champion 08/03/2013 Diltiazem CD 1 po qd 30caps Unknown - 240mg Caps ER 24HR 06/10/2012 Metoprolol Tartrate 1.5 po bid 60tabs Unknown - 50mg 06/24/2012 Tablets Trazodone HCL 1.5 tablet at 30tabs Unknown - 50mg Tablets bedtime as 02/23/2013 needed Warfarin Sodium 1 po qod 30tabs Unknown - 4mg Tablets 11/29/2012 Warfarin Sodium 1 po qod 30tabs Unknown - 3mg Tablets 11/29/2012 Medications Administered in Office Medication SIG Qnty Indications Ordering Provider Date Depomedrol 40MG Malachi Grace M.D. 03/16/2017 Injection Depomedrol 40MG Malachi Grace M.D. 10/20/2016 Injection Depomedrol 40MG Malachi Grace M.D. 06/06/2015 Injection Depomedrol 80MG Malachi Grace M.D. 10/08/2012 Injection Inj, Regadenoson, 0.1 MG Nelson Champion M.D. 03/26/2012 Injection Technetium TC 99M TetrofosminNelson M.D. 03/26/2012 Per Unit Dose Up To 40 Millicuries Injection Depomedrol 80MG Malachi Grace M.D. 10/22/2011 Injection Immunizations CPT Code Status Date Vaccine Lot # [id number] Given 06/21/2018 Pneumonia Vaccine [id number] Given 02/16/2018 Fluzone High Dose 29015 Given 03/27/2017 Influenza Virus Vaccine, Quadrivalent, Split, Preservative Free [id number] Given 11/24/2016 Tdap - Tetanus/Diptheria/Acellular Pertussis 39233 Given 03/17/2016 Influ Virus Vaccine, Quadrivalent, Split Virus, Im [id number] Fluzone not PF Vital Signs Date Vital Result Comment 11/02/2018 1:22pm Height 63 inches 5'3" Weight 121.00 lb Heart Rate 84 /min BP Systolic Sitting 122 mmHg BP Diastolic Sitting 58 mmHg BP Systolic Standing 132 mmHg BP Diastolic Standing 70 mmHg O2 % BldC Oximetry 96 % room air BMI (Body Mass Index) 21.4 kg/m2 Ejection Fraction 55-60% Echocardiogram 10/18/2018 10:09am O2 % BldC Oximetry 95 % Ra at rest. 94% Ra after walk test. 10/05/2018 2:23pm Height 63 inches 5'3" Weight 117.00 lb Heart Rate 80 /min BP Systolic Sitting 117 mmHg BP Diastolic Sitting 73 mmHg O2 % BldC Oximetry 97 % BMI (Body Mass Index) 20.7 kg/m2 10/04/2018 12:17pm Height 63 inches 5'3" Weight 118.50 lb Clothes/shoes Heart Rate 80 /min BP Systolic Sitting 140 mmHg ule reg cuff BP Diastolic Sitting 84 mmHg ule reg cuff BP Systolic Standing 140 mmHg ule reg cuff BP Diastolic Standing 84 mmHg ule reg cuff BMI (Body Mass Index) 21.0 kg/m2 Ejection Fraction 55-60% Echo 08/09/2018 09/29/2018 10:08am Height 63 inches 5'3" Weight 116.50 lb Clothes/shoes Heart Rate 88 /min BP Systolic Sitting 132 mmHg ule reg cuff BP Diastolic Sitting 78 mmHg ule reg cuff BP Systolic Standing 128 mmHg ule reg cuff BP Diastolic Standing 78 mmHg ule reg cuff BMI (Body Mass Index) 20.6 kg/m2 Ejection Fraction 55-60% Echo 08/09/2018 09/20/2018 1:51pm Height 63 inches 5'3" Heart Rate 88 /min apical BP Systolic Sitting 102 mmHg LA< reg BP Diastolic Sitting 62 mmHg LA< reg Ejection Fraction 65%-70% 07/2018 echo 07/30/2018 9:06am Height 63 inches 5'3" Weight 118.00 lb Heart Rate 75 /min BP Systolic Sitting 130 mmHg BP Diastolic Sitting 76 mmHg Respiratory Rate 16 /min BMI (Body Mass Index) 20.9 kg/m2 07/14/2018 1:22pm Height 63 inches 5'3" Weight 118.75 lb Heart Rate 80 /min BP Systolic Sitting 148 mmHg LA, reg BP Diastolic Sitting 82 mmHg LA, reg BP Systolic Standing 136 mmHg LA, reg BP Diastolic Standing 74 mmHg LA, reg BP Systolic Lying Down 118 mmHg la repeat sitting BP Diastolic Lying Down 73 mmHg la repeat sitting BMI (Body Mass Index) 21.0 kg/m2 Ejection Fraction 55%-60% stresss echo Ref 06/21/2018 8:08am Height 63 inches 5'3" Weight 119.00 lb Heart Rate 82 /min BP Systolic Sitting 110 mmHg BP Diastolic Sitting 68 mmHg O2 % BldC Oximetry 98 % BMI (Body Mass Index) 21.1 kg/m2 04/14/2018 1:14pm Heart Rate 87 /min BP Systolic Sitting 102 mmHg BP Diastolic Sitting 72 mmHg O2 % BldC Oximetry 94 % 03/03/2018 9:59am Height 63 inches 5'3" Weight 123.38 lb With Shoes Heart Rate 80 /min BP Systolic 102 mmHg rue/reg cuff BP Diastolic 60 mmHg rue/reg cuff BMI (Body Mass Index) 21.9 kg/m2 Ejection Fraction 55-60% Stress Echo 12/31/17 02/19/2018 9:27am Heart Rate 92 /min Apical< Irreg BP Systolic 118 mmHg Ra, reg BP Diastolic 72 mmHg Ra, reg BP Systolic Sitting 122 mmHg LA< reg BP Diastolic Sitting 84 mmHg LA< reg BP Systolic Standing 122 mmHg Ra, reg (stand) BP Diastolic Standing 80 mmHg Ra, reg (stand) 02/08/2018 10:33am Height 63 inches 5'3" Weight 121.00 lb Heart Rate 91 /min BP Systolic Sitting 118 mmHg BP Diastolic Sitting 78 mmHg O2 % BldC Oximetry 96 % BMI (Body Mass Index) 21.4 kg/m2 01/27/2018 9:04am Height 63 inches 5'3" Weight 123.00 lb Heart Rate 80 /min BP Systolic Sitting 120 mmHg BP Diastolic Sitting 80 mmHg BMI (Body Mass Index) 21.8 kg/m2 01/20/2018 9:55am Heart Rate 80 /min BP Systolic 122 mmHg left arm BP Diastolic 80 mmHg left arm BP Systolic Sitting 110 mmHg right arm BP Diastolic Sitting 70 mmHg right arm BP Systolic Standing 114 mmHg right arm BP Diastolic Standing 72 mmHg right arm 01/06/2018 3:06pm Heart Rate 92 /min Regular BP Systolic 110 mmHg right arm BP Diastolic 64 mmHg right arm BP Systolic Sitting 106 mmHg left arm BP Diastolic Sitting 64 mmHg left arm 12/31/2017 11:46am Height 63 inches 5'3" Weight 120.00 lb Heart Rate 75 /min BP Systolic Sitting 122 mmHg BP Diastolic Sitting 80 mmHg O2 % BldC Oximetry 95 % BMI (Body Mass Index) 21.3 kg/m2 12/22/2017 9:56am Height 63 inches 5'3" Weight 125.00 lb reported Heart Rate 108 /min BP Systolic Sitting 118 mmHg lue reg cuff BP Diastolic Sitting 72 mmHg lue reg cuff BMI (Body Mass Index) 22.1 kg/m2 Ejection Fraction >65% echo 09/06/15 12/16/2017 2:36pm Height 63 inches 5'3" Weight 125.25 lb W/ Shoes Heart Rate 88 /min BP Systolic Sitting 132 mmHg Lue Reg Cuff BP Diastolic Sitting 88 mmHg Lue Reg Cuff BMI (Body Mass Index) 22.2 kg/m2 Ejection Fraction 65% ECHO 09/06/15 11/19/2017 11:46am Height 63 inches 5'3" Weight 123.00 lb Heart Rate 89 /min BP Systolic Sitting 124 mmHg BP Diastolic Sitting 76 mmHg O2 % BldC Oximetry 98 % BMI (Body Mass Index) 21.8 kg/m2 11/11/2017 2:55pm Height 63 inches 5'3" Weight 125.00 lb Heart Rate 90 /min BP Systolic Sitting 112 mmHg BP Diastolic Sitting 72 mmHg O2 % BldC Oximetry 96 % BMI (Body Mass Index) 22.1 kg/m2 09/21/2017 9:08am Height 63 inches 5'3" Weight 126.38 lb Heart Rate 83 /min BP Systolic Sitting 118 mmHg BP Diastolic Sitting 80 mmHg O2 % BldC Oximetry 97 % BMI (Body Mass Index) 22.4 kg/m2 07/17/2017 9:40am Height 63 inches 5'3" Weight 122.00 lb without shoes Heart Rate 82 /min BP Systolic Sitting 100 mmHg Lue reg cuff BP Diastolic Sitting 70 mmHg Lue reg cuff BP Systolic Standing 118 mmHg Lue reg cuff BP Diastolic Standing 72 mmHg Lue reg cuff Respiratory Rate 16 /min BMI (Body Mass Index) 21.6 kg/m2 Ejection Fraction 65-70% date 12/06/15 ECHO 07/13/2017 11:36am Weight 122.00 lb Heart Rate 78 /min BP Systolic Sitting 122 mmHg BP Diastolic Sitting 78 mmHg O2 % BldC Oximetry 96 % 06/12/2017 11:36am Height 63 inches 5'3" Weight 120.00 lb Heart Rate 72 /min BP Systolic Sitting 110 mmHg BP Diastolic Sitting 84 mmHg Respiratory Rate 16 /min BMI (Body Mass Index) 21.3 kg/m2 04/13/2017 1:26pm Weight 124.00 lb Heart Rate 84 /min BP Systolic Sitting 130 mmHg BP Diastolic Sitting 98 mmHg O2 % BldC Oximetry 97 % 04/08/2017 9:09am Height 63 inches 5'3" Weight 120.00 lb Heart Rate 94 /min irregular BP Systolic Sitting 118 mmHg BP Diastolic Sitting 80 mmHg Respiratory Rate 16 /min BMI (Body Mass Index) 21.3 kg/m2 03/30/2017 11:56am Weight 120.38 lb Heart Rate 87 /min BP Systolic Sitting 110 mmHg BP Diastolic Sitting 70 mmHg Body Temperature 97.4 F O2 % BldC Oximetry 97 % 03/16/2017 2:46pm Height 63 inches 5'3" Weight 122.00 lb BP Systolic 114 mmHg BP Diastolic 64 mmHg Respiratory Rate 18 /min Pain Level 4 BMI (Body Mass Index) 21.6 kg/m2 02/02/2017 10:59am Heart Rate 72 /min BP Systolic Sitting 115 mmHg BP Diastolic Sitting 90 mmHg Body Temperature 97.8 F 01/16/2017 3:12pm Height 63 inches 5'3" Weight 120.00 lb w/o shoes Heart Rate 102 /min BP Systolic Sitting 124 mmHg Ra reg cuff BP Diastolic Sitting 78 mmHg Ra reg cuff BP Systolic Standing 118 mmHg Ra reg cuff BP Diastolic Standing 76 mmHg Ra reg cuff BMI (Body Mass Index) 21.3 kg/m2 01/07/2017 10:39am Height 63 inches 5'3" Weight 121.38 lb Heart Rate 83 /min BP Systolic Sitting 118 mmHg BP Diastolic Sitting 62 mmHg Body Temperature 98.3 F O2 % BldC Oximetry 94 % BMI (Body Mass Index) 21.5 kg/m2 12/09/2016 11:00am Height 63 inches 5'3" Weight 122.50 lb Heart Rate 83 /min BP Systolic 120 mmHg BP Diastolic 78 mmHg Body Temperature 97.7 F O2 % BldC Oximetry 98 % BMI (Body Mass Index) 21.7 kg/m2 11/19/2016 12:01pm Height 63 inches 5'3" Weight 119.00 lb Heart Rate 84 /min BP Systolic Sitting 148 mmHg Lue reg cuff BP Diastolic Sitting 94 mmHg Lue reg cuff BP Systolic Standing 120 mmHg Lue reg cuff BP Diastolic Standing 86 mmHg Lue reg cuff Respiratory Rate 16 /min BMI (Body Mass Index) 21.1 kg/m2 11/03/2016 8:10am Height 63 inches 5'3" Weight 122.38 lb Heart Rate 68 /min BP Systolic 110 mmHg BP Diastolic 50 mmHg Body Temperature 97.5 F O2 % BldC Oximetry 94 % BMI (Body Mass Index) 21.7 kg/m2 10/20/2016 2:21pm Height 63 inches 5'3" Weight 122.00 lb Heart Rate 55 /min BP Systolic 156 mmHg BP Diastolic 75 mmHg Body Temperature 97.5 F BMI (Body Mass Index) 21.6 kg/m2 10/01/2016 2:37pm Weight 122.00 lb Heart Rate 66 /min BP Systolic Sitting 136 mmHg BP Diastolic Sitting 84 mmHg Respiratory Rate 14 /min Body Temperature 98.6 F O2 % BldC Oximetry 98 % 08/19/2016 12:53pm Height 62.25 inches 5'2.25" Weight 127.38 lb Heart Rate 60 /min BP Systolic 118 mmHg BP Diastolic 60 mmHg Body Temperature 98.5 F O2 % BldC Oximetry 96 % BMI (Body Mass Index) 23.1 kg/m2 08/06/2016 8:22am Height 62.25 inches 5'2.25" Weight 123.00 lb no shoes Heart Rate 60 /min BP Systolic Sitting 142 mmHg Lue reg cuff BP Diastolic Sitting 80 mmHg Lue reg cuff BP Systolic Standing 142 mmHg Lue reg cuff BP Diastolic Standing 74 mmHg Lue reg cuff Respiratory Rate 16 /min BMI (Body Mass Index) 22.3 kg/m2 08/04/2016 11:40am Weight 125.00 lb Heart Rate 80 /min BP Systolic Sitting 122 mmHg BP Diastolic Sitting 76 mmHg Respiratory Rate 15 /min O2 % BldC Oximetry 98 % 07/04/2016 12:42pm Height 62.25 inches 5'2.25" Weight 123.00 lb without shoes Heart Rate 68 /min BP Systolic Sitting 146 mmHg Lue reg cuff BP Diastolic Sitting 90 mmHg Lue reg cuff BP Systolic Standing 130 mmHg Lue reg cuff BP Diastolic Standing 80 mmHg Lue reg cuff Respiratory Rate 17 /min BMI (Body Mass Index) 22.3 kg/m2 Ejection Fraction 65% date 09/06/15 ECHO 06/04/2016 8:48am Weight 128.00 lb Heart Rate 82 /min BP Systolic Sitting 130 mmHg BP Diastolic Sitting 84 mmHg Respiratory Rate 14 /min Body Temperature 98.0 F O2 % BldC Oximetry 98 % 04/04/2016 3:04pm Height 62.75 inches 5'2.75" Weight 123.00 lb Heart Rate 56 /min BP Systolic Sitting 140 mmHg LA reg cuff BP Diastolic Sitting 72 mmHg LA reg cuff BP Systolic Standing 148 mmHg LA BP Diastolic Standing 80 mmHg LA Respiratory Rate 16 /min BMI (Body Mass Index) 22.0 kg/m2 Ejection Fraction 65% 09/06/15 04/01/2016 8:54am Height 62.75 inches 5'2.75" Weight 122.38 lb Heart Rate 67 /min BP Systolic 110 mmHg BP Diastolic 66 mmHg Body Temperature 96.4 F O2 % BldC Oximetry 97 % BMI (Body Mass Index) 21.8 kg/m2 03/17/2016 12:19pm Height 62.75 inches 5'2.75" Weight 124.25 lb Heart Rate 59 /min BP Systolic Sitting 110 mmHg BP Diastolic Sitting 70 mmHg Body Temperature 97.9 F O2 % BldC Oximetry 97 % BMI (Body Mass Index) 22.2 kg/m2 02/11/2016 3:22pm Height 62.75 inches 5'2.75" Weight 123.00 lb Heart Rate 55 /min BP Systolic 150 mmHg BP Diastolic 73 mmHg BMI (Body Mass Index) 22.0 kg/m2 01/02/2016 11:19am Height 62.75 inches 5'2.75" Weight 122.00 lb Heart Rate 66 /min BP Systolic Sitting 142 mmHg BP Diastolic Sitting 74 mmHg Body Temperature 97.3 F O2 % BldC Oximetry 98 % BMI (Body Mass Index) 21.8 kg/m2 10/12/2015 8:49am Height 63 inches 5'3" Weight 118.00 lb w/o shoes Heart Rate 60 /min reg BP Systolic Sitting 104 mmHg Rue, reg cuff BP Diastolic Sitting 70 mmHg Rue, reg cuff BP Systolic Standing 110 mmHg Rue BP Diastolic Standing 70 mmHg Rue Respiratory Rate 18 /min BMI (Body Mass Index) 20.9 kg/m2 Ejection Fraction 65% as of 09/06/15 echo 09/21/2015 2:07pm Height 63 inches 5'3" Weight 124.00 lb no shoes Heart Rate 86 /min irreg BP Systolic Sitting 122 mmHg Ra regcuff BP Diastolic Sitting 82 mmHg Ra regcuff BP Systolic Standing 126 mmHg Ra reg cuff BP Diastolic Standing 90 mmHg Ra reg cuff Respiratory Rate 16 /min BMI (Body Mass Index) 22.0 kg/m2 Ejection Fraction >65% 09/06/15 07/13/2015 8:31am Height 63 inches 5'3" Weight 123.00 lb w/o shoes Heart Rate 56 /min reg BP Systolic Sitting 140 mmHg Rue, reg cuff BP Diastolic Sitting 84 mmHg Rue, reg cuff BP Systolic Standing 136 mmHg Rue BP Diastolic Standing 84 mmHg Rue Respiratory Rate 16 /min BMI (Body Mass Index) 21.8 kg/m2 Ejection Fraction 60-65% as of 06/26/15 Ronak 06/06/2015 3:27pm Height 63 inches 5'3" Weight 123.00 lb Heart Rate 70 /min BP Systolic Sitting 145 mmHg BP Diastolic Sitting 86 mmHg Respiratory Rate 16 /min Pain Level 5 BMI (Body Mass Index) 21.8 kg/m2 04/26/2015 9:31am Height 63 inches 5'3" Weight 123.00 lb w/o shoes Heart Rate 64 /min reg BP Systolic Sitting 140 mmHg Lue, reg cuff BP Diastolic Sitting 86 mmHg Lue, reg cuff BP Systolic Standing 144 mmHg Lue BP Diastolic Standing 80 mmHg Lue Respiratory Rate 18 /min BMI (Body Mass Index) 21.8 kg/m2 Ejection Fraction 60-65% as of Ronak 05/22/2014 2:22pm Height 63 inches 5'3" Weight 132.00 lb Heart Rate 84 /min BP Systolic 164 mmHg BP Diastolic 79 mmHg BMI (Body Mass Index) 23.4 kg/m2 05/10/2014 10:32am Height 63 inches 5'3" Weight 130.00 lb Heart Rate 62 /min BP Systolic Sitting 120 mmHg LA reg cuff BP Diastolic Sitting 84 mmHg LA reg cuff BP Systolic Standing 112 mmHg LA reg cuff BP Diastolic Standing 84 mmHg LA reg cuff Respiratory Rate 16 /min BMI (Body Mass Index) 23.0 kg/m2 11/24/2013 11:46am Height 63 inches 5'3" Weight 132.00 lb Heart Rate 56 /min BP Systolic Sitting 152 mmHg BP Diastolic Sitting 80 mmHg Respiratory Rate 16 /min BMI (Body Mass Index) 23.4 kg/m2 09/22/2013 9:52am Height 63 inches 5'3" Weight 130.50 lb Heart Rate 58 /min BP Systolic Sitting 144 mmHg right arm, reg cuff BP Diastolic Sitting 70 mmHg right arm, reg cuff BP Systolic Standing 140 mmHg right arm, reg cuff BP Diastolic Standing 64 mmHg right arm, reg cuff Respiratory Rate 16 /min BMI (Body Mass Index) 23.1 kg/m2 08/25/2013 12:52pm Height 63 inches 5'3" Weight 139.69 lb without shoes Heart Rate 88 /min sit and HR irreg BP Systolic Sitting 120 mmHg LA reg cuff BP Diastolic Sitting 84 mmHg LA reg cuff BP Systolic Standing 120 mmHg LA reg cuff BP Diastolic Standing 80 mmHg LA reg cuff Respiratory Rate 17 /min BMI (Body Mass Index) 24.7 kg/m2 08/03/2013 9:50am Height 63 inches 5'3" Weight 133.00 lb Heart Rate 100 /min reg BP Systolic Sitting 124 mmHg Ra reg cuff BP Diastolic Sitting 88 mmHg Ra reg cuff BP Systolic Standing 126 mmHg Ra BP Diastolic Standing 88 mmHg Ra Respiratory Rate 16 /min BMI (Body Mass Index) 23.6 kg/m2 07/28/2013 1:37pm Height 63 inches 5'3" Weight 135.00 lb no shoes, 2 Lbs increase from 02/23/13 Heart Rate 104 /min BP Systolic Sitting 110 mmHg LA, reg cuff BP Diastolic Sitting 72 mmHg LA, reg cuff BP Systolic Standing 110 mmHg BP Diastolic Standing 76 mmHg Respiratory Rate 18 /min O2 % BldC Oximetry 95 % Rest BMI (Body Mass Index) 23.9 kg/m2 05/27/2013 10:00am Heart Rate 94 /min Irregular BP Systolic Sitting 128 mmHg BP Diastolic Sitting 76 mmHg Respiratory Rate 16 /min 05/05/2013 10:37am Heart Rate 60 /min BP Systolic Sitting 128 mmHg BP Diastolic Sitting 78 mmHg Respiratory Rate 12 /min 03/16/2013 3:07pm Heart Rate 67 /min BP Systolic Sitting 120 mmHg BP Diastolic Sitting 68 mmHg Respiratory Rate 18 /min 02/23/2013 9:33am Height 62.25 inches 5'2.25" Weight 133.00 lb without shoes Heart Rate 6460 /min sit and stand HR reg BP Systolic Sitting 140 mmHg R arm reg cuff BP Diastolic Sitting 76 mmHg R arm reg cuff BP Systolic Standing 142 mmHg R arm reg cuff BP Diastolic Standing 78 mmHg R arm reg cuff Respiratory Rate 17 /min BMI (Body Mass Index) 24.1 kg/m2 06/24/2012 10:51am Height 63.5 inches 5'3.50" Weight 139.00 lb Heart Rate 52 /min BP Systolic Sitting 150 mmHg BP Diastolic Sitting 82 mmHg BMI (Body Mass Index) 24.2 kg/m2 06/10/2012 3:13pm Height 63 inches 5'3" Weight 130.00 lb BP Systolic 140 mmHg BP Diastolic 90 mmHg Respiratory Rate 16 /min Body Temperature 97.3 F BMI (Body Mass Index) 23.0 kg/m2 01/22/2012 3:07pm Height 63 inches 5'3" Weight 126.00 lb Heart Rate 60 /min BP Systolic 118 mmHg BP Diastolic 64 mmHg Respiratory Rate 16 /min Body Temperature 98.0 F BMI (Body Mass Index) 22.3 kg/m2 Results Test Date Facility Test Result H/L Range Note Basic Metabolic 10/26/2018 [facility] Sodium 141 mmol/L N 135- [address] [place] [address] [phone] Potassium 4.1 mmol/L N 3.5-5.0 Chloride 103 mmol/L N 101-111 Co2 Carbon Dioxide 33 mmol/L High 22-32 Anion Gap 5 mmol/L N 2-11 Glucose 82 mg/dL N 70-100 Blood Urea Nitrogen 16 mg/dL N 6-24 Creatinine 0.74 mg/dL N 0.51-0.95 BUN/Creatinine Ratio 21.6 High 8-20 Calcium 9.6 mg/dL N 8.6-10.3 Egfr Non- 74.6 >60 Egfr 90.3 >60 1 Order 09/29/2018 [facility]-House EKG <pending> Basic Metabolic Panel 09/20/2018 [facility] Sodium 136 mmol/L N 135-[address] [place] [address] [phone] Potassium 3.7 mmol/L N 3.5-5.0 Chloride 92 mmol/L Low 101-111 Co2 Carbon Dioxide 32 mmol/L N 22-32 Anion Gap 12 mmol/L High 2-11 Glucose 112 mg/dL High 70-100 Blood Urea Nitrogen 32 mg/dL High 6-24 Creatinine 0.76 mg/dL N 0.51-0.95 BUN/Creatinine Ratio 42.1 High 8-20 Calcium 10.1 mg/dL N 8.6-10.3 Egfr Non- 72.3 >60 Egfr 87.5 >60 2 CBC Auto 09/20/2018 [facility] White Blood 12.8 10^3/uL High 3.5-10.[address] [place] [address] [phone] Red Blood Count 5.20 10^6/uL High 3.70-4.87 Hemoglobin 15.1 g/dL N 12.0-16.0 Hematocrit 45 % N 35-47 Mean Corpuscular Volume 87 fL N 80-97 Mean Corpuscular Hemoglobin 29 pg N 27-31 Mean Corpuscular HGB Conc 33 g/dL N 31-36 Red Cell Distribution Width 14 % N 10.5-15 Platelet Count 249 10^3/uL N 150-450 Mean Platelet Volume 9.2 fL N 7.4-10.4 Abs Neutrophils 10.6 10^3/uL High 1.5-7.7 Abs Lymphocytes 1.1 10^3/uL N 1.0-4.8 Abs Monocytes 1.1 10^3/uL High 0-0.8 Abs Eosinophils 0.1 10^3/uL N 0-0.6 Abs Basophils 0.0 10^3/uL N 0-0.2 Abs Nucleated RBC 0.0 10^3/uL Granulocyte % 82.0 % Lymphocyte % 8.4 % Monocyte % 8.7 % Eosinophil % 0.6 % Basophil % 0.3 % Nucleated Red Blood Cells % 0.1 CBC Auto Diff 07/21/2018 [facility] White Blood 7.6 10^3/uL N 3.5-10.[address] [place] [address] [phone] Red Blood Count 5.19 10^6/uL N 4.00-5.40 Hemoglobin 15.0 g/dL N 12.0-16.0 Hematocrit 47 % N 35-47 Mean Corpuscular Volume 90 fL N 80-97 Mean Corpuscular Hemoglobin 29 pg N 27-31 Mean Corpuscular HGB Conc 32 g/dL N 31-36 Red Cell Distribution Width 15 % N 10.5-15 Platelet Count 262 10^3/uL N 150-450 Mean Platelet Volume 8.5 fL N 7.4-10.4 Abs Neutrophils 5.9 10^3/uL N 1.5-7.7 Abs Lymphocytes 1.0 10^3/uL N 1.0-4.8 Abs Monocytes 0.5 10^3/uL N 0-0.8 Abs Eosinophils 0.2 10^3/uL N 0-0.6 Abs Basophils 0 10^3/uL N 0-0.2 Abs Nucleated RBC 0 10^3/uL Granulocyte % 77.4 % Lymphocyte % 13.6 % Monocyte % 6.1 % Eosinophil % 2.3 % Basophil % 0.6 % Nucleated Red Blood Cells % 0.1 Laboratory test 07/21/2018 [facility] Digoxin 0.6 ng/ml Low 0.8-2.0 finding [address] [place] [address] [phone] Comp Metabolic 07/21/2018 [facility] Sodium 140 mmol/L N 135- 145 Panel [address] [place] [address] [phone] Potassium 3.8 mmol/L N 3.5-5.0 Chloride 102 mmol/L N 101-111 Co2 Carbon Dioxide 32 mmol/L N 22-32 Anion Gap 6 mmol/L N 2-11 Glucose 103 mg/dL High 70-100 Blood Urea Nitrogen 20 mg/dL N 6-24 Creatinine 0.77 mg/dL N 0.51-0.95 BUN/Creatinine Ratio 26.0 High 8-20 Calcium 9.5 mg/dL N 8.6-10.3 Total Protein 6.2 g/dL Low 6.4-8.9 Albumin 3.9 g/dL N 3.2-5.2 Globulin 2.3 g/dL N 2-4 Albumin/Globulin Ratio 1.7 N 1-3 Total Bilirubin 0.50 mg/dL N 0.2-1.0 Alkaline Phosphatase 51 U/L N 34-104 Alt 28 U/L N 7-52 Ast 38 U/L N 13-39 Egfr Non- 71.2 >60 Egfr 86.2 >60 3 Laboratory test 07/21/2018 [facility] B-Type 260 pg/mL High <= [address] [facility] [place] [address] Peptide BNP [phone] Magnesium 1.8 mg/dL Low 1.9-2.7 Lipid Profile 05/05/2018 [facility] Triglycerides 88 mg/dL 4 (Trig/Chol/HDL) [address] [place] [address] [phone] Cholesterol 220 mg/dL 5 HDL Cholesterol 55.7 mg/dL 6 LDL Cholesterol 147 mg/dL 7 Laboratory test 03/23/2018 [facility] Digoxin 0.4 ng/ml Low 0.8-2.0 finding [address] [place] [address] [phone] Laboratory test 03/11/2018 [facility] Digoxin 0.4 ng/ml Low 0.8-2.0 8 finding [address] [place] [address] [phone] Laboratory test 01/27/2018 [facility] Digoxin < 0.3 ng/ml Low 0.8-2.0 finding [address] [place] [address] [phone] Basic Metabolic 01/27/2018 [facility] Sodium 138 mmol/L N 135- 145 Panel [address] [place] [address] [phone] Potassium 4.1 mmol/L N 3.5-5.0 Chloride 103 mmol/L N 101-111 Co2 Carbon Dioxide 27 mmol/L N 22-32 Anion Gap 8 mmol/L N 2-11 Glucose 105 mg/dL High 70-100 Blood Urea Nitrogen 17 mg/dL N 6-24 Creatinine 0.79 mg/dL N 0.51-0.95 BUN/Creatinine Ratio 21.5 High 8-20 Calcium 9.2 mg/dL N 8.6-10.3 Egfr Non- 69.2 >60 Egfr 83.7 >60 9 Basic Metabolic Panel 11/11/2017 [facility] Sodium 139 mmol/L N 135-145 [address] [place] [address] [phone] Potassium 4.1 mmol/L N 3.5-5.0 Chloride 101 mmol/L N 101-111 Co2 Carbon Dioxide 29 mmol/L N 22-32 Anion Gap 9 mmol/L N 2-11 Glucose 98 mg/dL N 70-100 Blood Urea Nitrogen 19 mg/dL N 6-24 Creatinine 0.73 mg/dL N 0.51-0.95 BUN/Creatinine Ratio 26.0 High 8-20 Calcium 9.8 mg/dL N 8.6-10.3 Egfr Non- 76.0 >60 Egfr 91.9 >60 10 Laboratory test 11/11/2017 [facility] TSH (Thyroid 0.79 mcIU/mL N 0.34-5.[address] Stim Horm) [place] [address] [phone] Vitamin B12 691 pg/mL N 180-914 11 Ferritin 64.1 ng/mL N 11-307 Hemoglobin/Hematocrit 10/10/2017 [facility] Hemoglobin 14.7 N 12.0-16.[address] g/[place] [address] [phone] Hematocrit 44 % N 35-47 Urine Culture And 07/13/2017 [facility] Urine Culture SEE RESULT [address] [place] [address] [phone] Ua Routine 07/13/2017 [facility] Ua Specific 1.010 [place] Ua PH 7 Ua Color med yellow Ua Appera cloudy Ua WBC ++ Ua Protein ++100 Ua Glucose norm Ua Ketones - Ua Bilirubin - Ua Urobilinogen norm Ua Nitrite - Ua Occult Blood 250 Basic Metabolic Panel 03/30/2017 [facility] Sodium 138 mmol/L N 133-[address] [place] [address] [phone] Potassium 3.9 mmol/L N 3.5-5.0 Chloride 101 mmol/L N 101-111 Co2 Carbon Dioxide 33 mmol/L High 22-32 Anion Gap 4 mmol/L N 2-11 Glucose 72 mg/dL N 70-100 Blood Urea Nitrogen 23 mg/dL N 6-24 Creatinine 0.82 mg/dL N 0.51-0.95 BUN/Creatinine Ratio 28.0 High 8-20 Calcium 9.3 mg/dL N 8.6-10.3 Egfr Non- 66.4 >60 Egfr 85.4 >60 13 Laboratory test 03/30/2017 [facility] Magnesium 2.0 mg/dL N 1.9-2.[address] [place] [address] [phone] CBC Auto Diff 01/30/2017 [facility] White Blood 7.2 N 3.5- 10.[address] Count 10^3/[place] [address] [phone] Red Blood Count 5.00 10^6/uL N 4.0-5.4 Hemoglobin 14.8 g/dL N 12.0-16.0 Hematocrit 45 % N 35-47 Mean Corpuscular Volume 90 fL N 80-97 Mean Corpuscular Hemoglobin 30 pg N 27-31 Mean Corpuscular HGB Conc 33 g/dL N 31-36 Red Cell Distribution Width 14 % N 10.5-15 Platelet Count 300 10^3/uL N 150-450 Mean Platelet Volume 8 um3 N 7.4-10.4 Abs Neutrophils 5.3 10^3/uL N 1.5-7.7 Abs Lymphocytes 1.2 10^3/uL N 1.0-4.8 Abs Monocytes 0.4 10^3/uL N 0-0.8 Abs Eosinophils 0.2 10^3/uL N 0-0.6 Abs Basophils 0.1 10^3/uL N 0-0.2 Abs Nucleated RBC 0 10^3/uL N Granulocyte % 74.4 % N 38-83 Lymphocyte % 16.9 % Low 25-47 Monocyte % 5.7 % N 1-9 Eosinophil % 2.1 % N 0-6 Basophil % 0.9 % N 0-2 Nucleated Red Blood Cells % 0 N Comp Metabolic Panel 01/30/2017 [facility] Sodium 137 mmol/L N 133-[address] [place] [address] [phone] Potassium 3.4 mmol/L Low 3.5-5.0 Chloride 101 mmol/L N 101-111 Co2 Carbon Dioxide 31 mmol/L N 22-32 Anion Gap 5 mmol/L N 2-11 Glucose 99 mg/dL N 70-100 Blood Urea Nitrogen 12 mg/dL N 6-24 Creatinine 0.72 mg/dL N 0.51-0.95 BUN/Creatinine Ratio 16.7 N 8-20 Calcium 9.6 mg/dL N 8.6-10.3 Total Protein 6.8 g/dL N 6.4-8.9 Albumin 4.1 g/dL N 3.2-5.2 Globulin 2.7 g/dL N 2-4 Albumin/Globulin Ratio 1.5 N 1-3 Total Bilirubin 0.60 mg/dL N 0.2-1.0 Alkaline Phosphatase 56 U/L N 34-104 Alt 20 U/L N 7-52 Ast 30 U/L N 13-39 Egfr Non- 77.2 N >60 Egfr 99.2 N >60 14 Laboratory test 01/30/2017 [facility] Uric Acid 3.3 mg/dL N 2.3-6.[address] [place] [address] [phone] C Reactive Protein 3.36 mg/L N < 5.00 15 Lactic Acid 0.8 mmol/L N 0.5-2.0 16 Laboratory test 10/14/2016 [facility] Lyme Disease Negative N Negative [address] [place] [address] [phone] Vitamin B12 560 pg/mL N 180-914 18 TSH (Thyroid Stim Horm) 0.87 mcIU/mL N 0.34-5.60 Basic Metabolic Panel 10/14/2016 [facility] Sodium 137 mmol/L N 133-145 [address] [place] [address] [phone] Potassium 4.3 mmol/L N 3.5-5.0 Chloride 100 mmol/L Low 101-111 Co2 Carbon Dioxide 32 mmol/L N 22-32 Anion Gap 5 mmol/L N 2-11 Glucose 81 mg/dL N 70-100 Blood Urea Nitrogen 21 mg/dL N 6-24 Creatinine 0.81 mg/dL N 0.51-0.95 BUN/Creatinine Ratio 25.9 High 8-20 Calcium 9.4 mg/dL N 8.6-10.3 Egfr Non- 67.5 N >60 Egfr 86.8 N >60 19 Lipid Profile 07/23/2016 [facility] Triglycerides 88 mg/dL N 20 (Trig/Chol/HDL) [address] [place] [address] [phone] Cholesterol 206 mg/dL N 21 HDL Cholesterol 50.7 mg/dL N 22 LDL Cholesterol 138 mg/dL N 23 Basic Metabolic Panel 07/01/2016 [facility] Sodium 136 mmol/L N 133-145 [address] [place] [address] [phone] Potassium 4.2 mmol/L N 3.5-5.0 Chloride 99 mmol/L Low 101-111 Co2 Carbon Dioxide 29 mmol/L N 22-32 Anion Gap 8 mmol/L N 2-11 Glucose 95 mg/dL N 70-100 Blood Urea Nitrogen 17 mg/dL N 6-24 Creatinine 0.78 mg/dL N 0.51-0.95 BUN/Creatinine Ratio 21.8 High 8-20 Calcium 10.0 mg/dL N 8.6-10.3 Egfr Non- 70.5 N >60 Egfr 90.7 N >60 24 Comp Metabolic Panel 05/22/2016 [facility] Sodium 138 mmol/L N 133-145 [address] [place] [address] [phone] Potassium 3.7 mmol/L N 3.5-5.0 Chloride 107 mmol/L N 101-111 Co2 Carbon Dioxide 27 mmol/L N 22-32 Anion Gap 4 mmol/L N 2-11 Glucose 151 mg/dL High 70-100 Blood Urea Nitrogen 13 mg/dL N 6-24 Creatinine 0.80 mg/dL N 0.51-0.95 BUN/Creatinine Ratio 16.3 N 8-20 Calcium 9.7 mg/dL N 8.6-10.3 Total Protein 6.2 g/dL Low 6.4-8.9 Albumin 4.1 g/dL N 3.2-5.2 Globulin 2.1 g/dL N 2-4 Albumin/Globulin Ratio 2.0 N 1-3 Total Bilirubin 0.40 mg/dL N 0.2-1.0 Alkaline Phosphatase 53 U/L N 34-104 Alt 26 U/L N 7-52 Ast 37 U/L N 13-39 Egfr Non- 68.5 N >60 Egfr 88.1 N >60 25 Basic Metabolic Panel 03/29/2016 [facility] Sodium 138 mmol/L N 133-145 [address] [place] [address] [phone] Potassium 4.4 mmol/L N 3.5-5.0 Chloride 102 mmol/L N 101-111 Co2 Carbon Dioxide 28 mmol/L N 22-32 Anion Gap 8 mmol/L N 2-11 Glucose 106 mg/dL High 70-100 Blood Urea Nitrogen 17 mg/dL N 6-24 Creatinine 0.84 mg/dL N 0.51-0.95 BUN/Creatinine Ratio 20.2 High 8-20 Calcium 9.4 mg/dL N 8.6-10.3 Egfr Non- 64.8 N >60 Egfr 83.3 N >60 26 Laboratory test 03/29/2016 [facility] Uric Acid 2.7 mg/dL N 2.3-6.[address] [place] [address] [phone] Lipid Profile 03/29/2016 [facility] Triglycerides 79 mg/dL N 27 (Trig/Chol/HDL) [address] [place] [address] [phone] Cholesterol 240 mg/dL N 28 HDL Cholesterol 66.6 mg/dL N 29 LDL Cholesterol 158 mg/dL N 30 Laboratory test 09/11/2015 [facility] C Reactive 35.32 High < 5.00 31, [address] Protein mg/[place] [address] [phone] Lyme Disease Serology Negative N Negative 33 CBC Auto Diff 12/19/2014 [facility] White Blood 7.2 10^3/uL N 4.8-10.[address] [place] [address] [phone] Red Blood Count 4.79 10^6/uL N 4.0-5.4 Hemoglobin 14.5 g/dL N 12.0-16.0 Hematocrit 45 % N 35-47 Mean Corpuscular Volume 93 fL N 80-97 Mean Corpuscular Hemoglobin 30 pg N 27-31 Mean Corpuscular HGB Conc 33 g/dL N 31-36 Red Cell Distribution Width 15 % N 10.5-15 Platelet Count 233 10^3/uL N 150-450 Mean Platelet Volume 9 um3 N 7.4-10.4 Abs Neutrophils 5.4 10^3/uL N 1.5-7.7 Abs Lymphocytes 1.0 10^3/uL N 1.0-4.8 Abs Monocytes 0.4 10^3/uL N 0-0.8 Abs Eosinophils 0.3 10^3/uL N 0-0.6 Abs Basophils 0.1 10^3/uL N 0-0.2 Abs Nucleated RBC 0.01 10^3/uL N Granulocyte % 75.3 % N 38-83 Lymphocyte % 13.7 % Low 25-47 Monocyte % 5.7 % N 1-9 Eosinophil % 4.3 % N 0-6 Basophil % 1.0 % N 0-2 Nucleated Red Blood Cells % 0.1 N BMP Basic Metabolic 12/06/2014 [facility] Sodium 140 mmol/L N 133-145 Panel (8) [address] [place] [address] [phone] Potassium 4.1 mmol/L N 3.5-5.0 Chloride 106 mmol/L N 101-111 Co2 Carbon Dioxide 28 mmol/L N 22-32 Anion Gap 6 mmol/L N 2-11 Glucose 106 mg/dL High 70-100 Blood Urea Nitrogen 15 mg/dL N 6-24 Creatinine 0.62 mg/dL N 0.51-0.95 BUN/Creatinine Ratio 24.2 High 8-20 Calcium 9.3 mg/dL N 8.6-10.3 Egfr Non- 92.4 N >60 Egfr 118.8 N >60 34 Laboratory test 12/06/2014 [facility] TSH (Thyroid 1.12 ?IU/mL N 0.34-5.[address] Stim Horm) [place] [address] [phone] Comp Metabolic 04/17/2014 [facility] Sodium 139 mmol/L N 133- [address] [place] [address] [phone] Potassium 4.4 mmol/L N 3.5-5.0 35 Chloride 103 mmol/L N 101-111 Co2 Carbon Dioxide 32 mmol/L N 22-32 Anion Gap 4 mmol/L N 2-11 Glucose 92 mg/dL N 70-100 Blood Urea Nitrogen 16 mg/dL N 6-24 Creatinine 0.79 mg/dL N 0.51-0.95 BUN/Creatinine Ratio 20.3 High 8-20 Calcium 9.3 mg/dL N 8.6-10.3 Total Protein 6.3 g/dL Low 6.4-8.9 Albumin 4.0 g/dL N 3.2-5.2 Globulin 2.3 g/dL N 2-4 Albumin/Globulin Ratio 1.7 N 1-3 Total Bilirubin 0.50 mg/dL N 0.2-1.0 Alkaline Phosphatase 56 U/L N 34-104 Alt 22 U/L N 7-52 Ast 29 U/L N 13-39 Egfr Non- 69.8 N >60 Egfr 89.8 N >60 36 Lipid Profile 12/14/2013 [facility] Triglycerides 198 mg/dL N 37 (Trig/Chol/HDL) [address] [place] [address] [phone] Cholesterol 212 mg/dL N 38 HDL Cholesterol 59.0 mg/dL N 39 LDL Cholesterol 113 mg/dL N 40 Laboratory test 12/14/2013 [facility] Uric Acid 3.1 mg/dL N 2.3-6.6 finding [address] [place] [address] [phone] TSH (Thyroid Stimulating Horm) 1.33 IU/mL N 0.34-5.60 Basic Metabolic Panel 09/06/2013 [facility] Sodium 139 mmol/L N 133-145 [address] [place] [address] [phone] Potassium 4.6 mmol/L N 3.7-5.6 Chloride 104 mmol/L N 101-111 Co2 Carbon Dioxide 29 mmol/L N 22-32 Anion Gap 6 mmol/L N 2-11 Glucose 90 mg/dL N 70-100 Blood Urea Nitrogen 16 mg/dL N 6-24 Creatinine 0.85 mg/dL N 0.51-0.95 BUN/Creatinine Ratio 18.8 N 8-20 Calcium 9.4 mg/dL N 8.6-10.3 Egfr Non- 64.4 N >60 Egfr 82.8 N >60 41 CBC No Diff 09/06/2013 [facility] White Blood 7.3 10^3/uL N 4.8-10.[address] [place] [address] [phone] Red Blood Count 4.90 10^6/uL N 4.0-5.4 Hemoglobin 14.3 g/dL N 12.0-16.0 Hematocrit 43 % N 35-47 Mean Corpuscular Volume 88 fL N 80-97 Mean Corpuscular Hemoglobin 29 pg N 27-31 Mean Corpuscular HGB Conc 33 g/dL N 31-36 Red Cell Distribution Width 15 % N 10.5-15 Platelet Count 336 10^3/uL N 150-450 Mean Platelet Volume 8 um3 N 7.4-10.4 Creatinine 05/06/2013 [facility] Creatinine 0.60 mg/dL 0.50- 1.[address] [place] [address] [phone] Egfr Non- 96.2 >60 Egfr 123.7 >60 42 Laboratory test 09/29/2012 [facility] Erythrocyte Sed 19 mm/Hr 0-[address] [place] [address] [phone] Manual 09/29/2012 [facility] Neutrophil % 78 % 38-[address] [place] [address] [phone] Lymphocytes % 13 % Low 25-47 Monocytes % 8 % 0-13 Basophil % 1 % 0-2 RBC Morphology Normal Normal CBC Auto Diff 09/29/2012 [facility] White Blood 7.8 10^3/uL 4.8-10.[address] [place] [address] [phone] Red Blood Count 5.02 10^6/uL 4.0-5.4 Hemoglobin 15.3 g/dL 12.0-16.0 Hematocrit 45 % 35-47 Mean Corpuscular Volume 89 fL 80-97 Mean Corpuscular Hemoglobin 31 pg 27-31 Mean Corpuscular HGB Conc 34 g/dL 31-36 Red Cell Distribution Width 13 % 10.5-15 Platelet Count 235 10^3/uL 150-450 Mean Platelet Volume 9 um3 7.4-10.4 Abs Neutrophils 6.1 10^3/uL 1.5-7.7 Abs Lymphocytes 0.9 10^3/uL Low 1.0-4.8 Abs Monocytes 0.6 10^3/uL 0-0.8 Abs Eosinophils 0.2 10^3/uL 0-0.6 Abs Basophils 0 10^3/uL 0-0.2 Abs Nucleated RBC 0.01 10^3/uL CBC No Diff 03/08/2012 [facility] White Blood 7.9 10^3/uL 4.8 -10.[address] [place] [address] [phone] Red Blood Count 4.32 10^6/uL 4.0-5.4 Hemoglobin 12.0 g/dL 12.0-16.0 Hematocrit 37 % 35-47 Mean Corpuscular Volume 86 fL 80-97 Mean Corpuscular Hemoglobin 28 pg 27-31 Mean Corpuscular HGB Conc 32 g/dL 31-36 Red Cell Distribution Width 17 % High 10.5-15 Platelet Count 273 10^3/uL 150-450 Mean Platelet Volume 9 um3 7.4-10.4 Laboratory test 03/08/2012 [facility] B Type 499.0 High 0-[address] Natriuretic pg/[place] [address] Peptide [phone] Laboratory test 03/08/2012 [facility] Creatine Kinase 199 U/L 0-[address] [place] [address] [phone] Basic Metabolic 03/08/2012 [facility] Sodium 139 133-[address] mmol/[place] [address] [phone] Potassium 4.5 mmol/L 3.5-5.0 Chloride 107 mmol/L 101-111 Co2 Carbon Dioxide 27.0 mmol/L 22-32 Anion Gap 5.0 mmol/L 2-11 Glucose 91 mg/dL 70-100 Blood Urea Nitrogen 18 mg/dL 6-24 Creatinine 0.70 mg/dL 0.50-1.40 BUN/Creatinine Ratio 25.7 High 8-20 Calcium 9.0 mg/dL 8.1-9.9 Egfr Non- 80.7 >60 Egfr 103.8 >60 43 Laboratory test finding 03/04/2012 [facility] Inr 2.42 High 0.82-1.17 44 [address] [place] [address] [phone] Activated Partial Thrombo Time 32.4 SEC 25.15-38.53 Laboratory test finding 03/01/2012 [facility] Inr 1.86 High 0.82-1.17 45 [address] [place] [address] [phone] 1 Because ethnic data is not always readily [...] 15-29 5 Kidney failure <15 (or dialysis) 2 Because ethnic data is not always readily [...] 15-29 5 Kidney failure <15 (or dialysis) 3 Because ethnic data is not always [...] 5 Kidney failure <15 (or dialysis) 4 Desirable: <150 Borderline High: 150-199 High: 200-499 Very High: >500 5 Desirable: <200 Borderline High: 200-239 High: >239 6 Low: <40 Desirable: 40-60 High: >60 7 Desirable: <100 Near Optimal: 100-129 Borderline High: 130-159 High: 160-189 Very High: >189 8 7-10 days 9 Because ethnic data is not always readily [...] 15-29 5 Kidney failure <15 (or dialysis) 10 Because ethnic data is not always readily [...] 15-29 5 Kidney failure <15 (or dialysis) 11 Normal Range 180 to 914 Indeterminate Range 145 to 180 Deficient Range <145 12 SEE RESULT BELOW Name: MINI NATH : [address]: Lourdes Weinstein MD Acct: [id number] Unit: [id number] AGE: 86 Location: [facility] Re07/14/17 SEX: F Status: REG REF SPEC: [id number] SAM: 07/13/17-1321 [facility] DR: Lourdes Weinstein MD REQ: [id number] RECD: 07/14/17123 STATUS: COMP _ SOURCE: URINE SPDESC: ORDERED: Urine Culture QUERIES: Urine Source: Clean Catch Procedure Result Reported Site Urine Culture Final 07/16/17- 950 ML Organism 1 ENTEROCOCCUS FAECALIS [place] Count >100,000 (Many) CFU/ML 1. ENTEROCOCCUS FAECALIS [facility] RX --------- ------ Ampicillin <=2 S Penicillin 2 S Ciprofloxacin <=0.5 S Gentamicin High Level S Levofloxacin 1 S Linezolid 2 S Nitrofurantoin <=16 S * Quinupristin/Dalfopristin 8 R * Streptomycin High Level S Tetracycline >=16 R Tigecycline <=0.12 S Vancomycin 1 S Imipenem-Deduced S * Ampicillin/Sulbactam-Deduced S * These antibiotics are not available in the [facility] Formulary Contact the Microbiology Department for any additional antibiotic reporting. * [facility] - Main Lab . END OF REPORT DEPARTMENT OF PATHOLOGY, [address] [place] [address] Mathew Head M.D. Director [facility] # [id number] 13 Because ethnic data is not always readily [...] 15-29 5 Kidney failure <15 (or dialysis) 14 Because ethnic data is not always readily [...] 15-29 5 Kidney failure <15 (or dialysis) 15 Acute inflammation: >10.00 16 [facility] Severe Sepsis and Septic Shock Management Bundle Measure requires all lactic acids initially measuring >2.0 mmol/L be repeated. 17 Serologic response to B. burgdorferi infection is not detected, but cannot rule out early infection during which low or undetectable antibody levels to B. burgdorferi may be present. If clinically indicated, a new serum specimen should be submitted in 7-14 days. Test Performed by: [place] [address] 18 Normal Range 180 to 914 Indeterminate Range 145 to 180 Deficient Range <145 19 Because ethnic data is not always readily [...] 15-29 5 Kidney failure <15 (or dialysis) 20 Desirable <150 Borderline high 150-199 High 200-499 Very High >500 21 Desirable <200 Borderline high 200-239 High >239 22 Low <40 Desirable: 40-60 High: >60 23 Desirable: <100 mg/dL Near Optimal: 100-129 mg/dL Borderline High: 130-159 mg/dL High: 160-189 mg/dL Very High: >189 mg/dL 24 Because ethnic data is not always readily [...] 15-29 5 Kidney failure <15 (or dialysis) 25 Because ethnic data is not always readily [...] 15-29 5 Kidney failure <15 (or dialysis) 26 Because ethnic data is not always readily [...] 15-29 5 Kidney failure <15 (or dialysis) 27 Desirable <150 Borderline high 150-199 High 200-499 Very High >500 28 Desirable <200 Borderline high 200-239 High >239 29 Low <40 Desirable: 40-60 High: >60 30 Desirable: <100 mg/dL Near Optimal: 100-129 mg/dL Borderline High: 130-159 mg/dL High: 160-189 mg/dL Very High: >189 mg/dL 31 [facility] 658 32 Acute inflammation: >10.00 33 Serologic response to B. burgdorferi infection is not detected, but cannot rule out early infection during which low or undetectable antibody levels to B. burgdorferi may be present. If clinically indicated, a new serum specimen should be submitted in 7-14 days. Test Performed by: [place] [address] [employer] Feeder: Solo Luna II, M.D., Ph.D. 34 Because ethnic data is not always readily [...] 15-29 5 Kidney failure <15 (or dialysis) 35 Potassium reference range changed effective 03/19/14 36 Because ethnic data is not always readily [...] 15-29 5 Kidney failure <15 (or dialysis) 37 Desirable <150 Borderline high 150-199 High 200-499 Very High >500 38 Desirable <200 Borderline high 200-239 High >239 39 Low <40 Desirable: 40-60 High: >60 40 Desirable <100 Near Optimal 100-129 Borderline high 130-159 High 160-189 Very High >189 41 Because ethnic data is not always readily [...] 15-29 5 Kidney failure <15 (or dialysis) 42 Because ethnic data is not always readily [...] 15-29 5 Kidney failure <15 (or dialysis) 43 Because ethnic data is not always readily [...] 15-29 5 Kidney failure <15 (or dialysis) 44 Effective February 16, 2012, in conjunction with the upgrade of the hospital information system, [facility] will release the International Normalized Ratio (INR) only. Patient reports will no longer contain prothrombin time (PT) results in seconds. This allows for consistency in patient evaluation and treatment. The INR was adopted by the World Health Organization (WHO) in 1983 as a standardized system of reporting PT. The Centers for Disease Control (CDC) states that reporting of PT results in INR only is the preferred method. 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 2.5 - 3.5 Procedures Date Code Description Status 11/02/2018 03821 EKG Tracing & Interpretation Completed 10/18/2018 75608 ECHO Transthoracic, Real-Time 2D With Doppler And Completed Color Flow 10/18/2018 63682 ECHO Transthoracic, Real-Time 2D With Doppler And Completed Color Flow 10/18/2018 09163 EKG Tracing & Interpretation Completed 10/18/2018 02138 EKG Tracing & Interpretation Completed 10/04/2018 08651 EKG Tracing & Interpretation Completed 09/29/2018 49440 EKG Tracing & Interpretation Completed 09/01/2018 75991 ECHO Stress Test Incl Perf Contiuous ekg Monitoring Completed W/Phys Superv 08/09/2018 55599 ECHO Transthoracic, Real-Time 2D With Doppler And Completed Color Flow 08/09/2018 52031 ECHO Transthoracic, Real-Time 2D With Doppler And Completed Color Flow 08/07/2018 91866 Holter Monitor Review (24 hr)dr review & interp only Completed 08/04/2018 07886 ECG Monitor/Recording W/Visual Superimposition Completed Scanning 08/04/2018 42898 ECG Monitor/Recording W/Visual Superimposition Completed Scanning 07/14/2018 53887 EKG Tracing & Interpretation Completed 03/27/2018 88594 Holter Monitor Review (24 hr)dr review & interp only Completed 03/24/2018 67783 ECG Monitor/Recording W/Visual Superimposition Completed Scanning 02/19/2018 30079 EKG Tracing & Interpretation Completed 02/19/2018 87534 EKG Tracing & Interpretation Completed 02/10/2018 67005 Holter Monitor Review (24 hr)dr review & interp only Completed 02/04/2018 54270 ECG Monitor/Recording W/Visual Superimposition Completed Scanning 01/20/2018 44388 EKG Tracing & Interpretation Completed 01/20/2018 98857 EKG Tracing & Interpretation Completed 01/07/2018 06987 EKG Tracing & Interpretation Completed 12/31/2017 53384 ECHO Stress Test Incl Perf Contiuous ekg Monitoring Completed W/Phys Superv 12/31/2017 00475 ECHO Stress Test Incl Perf Contiuous ekg Monitoring Completed W/Phys Superv 12/28/2017 76336 ECHO Transthoracic, Real-Time 2D With Doppler And Completed Color Flow 12/28/2017 10839 ECHO Transthoracic, Real-Time 2D With Doppler And Completed Color Flow 12/22/2017 71841 EKG Tracing & Interpretation Completed 12/16/2017 53804 EKG Tracing & Interpretation Completed 05/20/2017 [id number] Diabetic Retinal Eye Exam Completed 04/30/2017 [id number] Diabetic Retinal Eye Exam Completed 03/16/201705839 Inject/Drain Joint/Bursa Major W/O US Completed 01/05/2017 39493 Holter Monitor Review (24 hr)dr review & interp only Completed 12/31/2016 05061 ECG Monitor/Recording W/Visual Superimposition Completed Scanning 11/19/2016 26066 EKG Tracing & Interpretation Completed 10/20/2016 14027 Inject/Drain Joint/Bursa Major W/O US Completed 08/06/2016 29211 EKG Tracing & Interpretation Completed 07/28/2016 59972 EKG, Interpretation Only Completed 07/28/2016 03268 Cardioversion Completed 07/04/2016 50598 EKG Tracing & Interpretation Completed 07/01/2016 77429 Holter Monitor Review (24 hr)dr review & interp only Completed 06/26/2016 85982 ECG Monitor/Recording W/Visual Superimposition Completed Scanning 06/03/2016 95828 EKG, Interpretation Only Completed 06/03/2016 29117 Cardioversion Completed 01/14/2016 40539 Plethysmography Determination Lung Volumes & Per Completed Airway Resist 01/14/2016 70988 Pulmonary Function><Bronchodil Completed 10/12/2015 03601 EKG Tracing & Interpretation Completed 09/24/2015 14026 EKG, Interpretation Only Completed 09/24/2015 16010 Cardioversion Completed 09/21/2015 35185 EKG Tracing & Interpretation Completed 09/06/2015 41693 EKG, Interpretation Only Completed 09/06/2015 00333 Stress ECHO Interpretation/Report Hospital Completed 09/06/2015 72715 ECHO Transthorasic Realtime 2D W Doppler & Color Flow Completed Hosp 09/06/2015 09870 Stress Test Supervsn W/Out I/R Completed 09/06/2015 70778 Treadmill Interp/Report Only Completed 07/13/2015 76118 EKG Tracing & Interpretation Completed 06/26/2015 91003 Cardioversion Completed 06/26/2015 44565 EKG, Interpretation Only Completed 06/26/2015 39317 Pulse Wave/Continuous-Interp.RPT Completed 06/26/2015 37185 Color Flow Doppler/Interp & Reprt Completed 06/26/2015 68710 Echocardiography, Transesophageal, Real Time W/Image Completed 2D W/W/O M-M 06/25/2015 02802 EKG Tracing & Interpretation Completed 06/06/201571623 Inject/Drain Joint/Bursa Major W/O US Completed 05/30/2015 80098646 Mammogram Completed 04/26/2015 38683 EKG Tracing & Interpretation Completed 09/22/2013 73180 EKG Tracing & Interpretation Completed 09/06/2013 47054 EKG, Interpretation Only Completed 09/06/2013 86918 Cardioversion Completed 08/25/2013 13331 EKG Tracing & Interpretation Completed 08/01/2013 98685 EKG Tracing & Interpretation Completed 07/28/2013 31135 EKG Tracing & Interpretation Completed 05/05/2013 36101 Nerve Conduction 03-04 Studies Completed 05/05/2013 39033 Needle Electromyography Complete, Five Or More Muscles Completed Studied 02/23/2013 56669 EKG Tracing & Interpretation Completed 11/10/2012 45244 EKG Tracing & Interpretation Completed 10/08/2012 32121 Rad Exam; Both Knees, Standing Ap Completed 10/08/2012 38994 Xray Knee 3 Views Completed 10/08/2012 55174 Rad Exam; Knee, Ap&L Completed 10/08/201212698 Inject/Drain Joint/Bursa Major W/O US Completed 05/07/2012 47836 EKG Tracing & Interpretation Completed 04/30/2012 03289 Cardiac Event Monitor Completed 04/20/2012 26171 Cardiac Event Monitor Completed 03/26/2012 46803 Stress Test Completed 03/26/2012 00468 Myocardial Perfusion Imaging Tomographic (Spect) Completed Multiple Studies 03/24/2012 87586 EKG Tracing & Interpretation Completed 03/15/2012 45481 EKG, Interpretation Only Completed 03/14/2012 02915 EKG, Interpretation Only Completed 03/13/2012 98179 EKG, Interpretation Only Completed 03/08/2012 02442 EKG Tracing & Interpretation Completed 03/04/2012 37969 Color Flow Doppler/Interp & Reprt Completed 03/04/2012 18188 Pulse Wave/Continuous-Interp.RPT Completed 03/04/2012 50432 Echocardiography, Transesophageal, Real Time W/Image Completed 2D W/W/O M-M 03/04/2012 99597 Cardioversion Completed 01/28/2012 19771 Xray Knee 3 Views Completed 01/28/2012 55947 Rad Exam; Knee, Ap&L Completed 01/06/2012 92657 EKG, Interpretation Only Completed 12/26/2011 80747 EKG, Interpretation Only Completed 12/16/2011 38022 TKR Total Knee Replacement Completed 12/16/2011 36896 TKR Total Knee Replacement Completed 10/22/2011 68108 Xray Knee 3 Views Completed 10/22/2011 71372 Rad Exam; Knee, Ap&L Completed 10/22/2011 96004 Inject/Drain Joint/Bursa Major W/O US Completed 01/30/2010 32970 Xray Knee 3 Views Completed 01/30/2010 38059 Xray Knee 3 Views Completed 12/01/2005 64941 Color Doppler Completed 12/01/2005 43092 Color Doppler Completed 12/01/2005 81729 Pulse Doppler & Continuous Wave Completed 12/01/2005 48753 Echocardiogram Completed 12/01/2005 63673 Echocardiogram Completed 03/19/2004 95611 Color Doppler Completed 03/19/2004 92459 Pulse Doppler & Continuous Wave Completed 03/19/2004 80660 Echocardiogram Completed 06/12/2003 77265506 Colonoscopy Completed 09/29/2002 29296 Color Doppler Completed 09/29/2002 90898 Pulse Doppler & Continuous Wave Completed 09/29/2002 94237 Echocardiogram Completed Encounters Type Date Location Provider Dx Diagnosis Office Visit 10/05/2018 [facility] [place] Weinstein, 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 immunization R15.1 Fecal smearing Office Visit 04/14/2018 [facility] [place] Z00.00 Encntr for 1:00p Filiberto Weinstein M.D. general adult medical exam w/o abnormal findings E78.00 Pure hypercholesterolemia, unspecified R15.1 Fecal smearing H81.13 Benign paroxysmal vertigo, bilateral Office Visit 03/03/2018 10:00a [facility] Thelma Schwarz I10 Essential ( primary) Foster, N.P. hypertension R06.02 Shortness of breath E78.00 Pure hypercholesterolemia, unspecified I34.0 Nonrheumatic mitral (valve) insufficiency I35.0 Nonrheumatic aortic (valve) stenosis I48.2 Chronic atrial fibrillation Office Visit 02/08/2018 [facility] [place] R06.02 Shortness of 10:30a Filiberto Weinstein M.D. breath I48.2 Chronic atrial fibrillation Office Visit 01/27/2018 9:00a Neurohospitalist Erin Caputo, R42 Dizziness and Clinic [place] giddiness M48.07 Spinal stenosis, lumbosacral region G60.8 Other hereditary and idiopathic neuropathies Office Visit 01/06/2018 3:00p [facility] Nurse Visit cc I48.2 Chronic atrial fibrillation Office Visit 12/31/2017 11:50a [facility] [place] I48.2 Chronic atrial Internal [place] Weinstein fibrillation Mina-Arrowhannah sullivan Office Visit 12/16/2017 2:40p [facility] True Minaya I48.2 Chronic atrial [place] Mathews fibrillation R53.83 Other fatigue I34.0 Nonrheumatic mitral (valve) insufficiency I35.0 Nonrheumatic aortic (valve) stenosis R42 Dizziness and giddiness E78.00 Pure hypercholesterolemia, unspecified I25.2 Old myocardial infarction R94.31 Abnormal electrocardiogram [ECG] [EKG] Office Visit 11/19/2017 [facility] [place] I10 Essential 12:10p Filiberto Weinstein M.D. (primary) hypertension I48.2 Chronic atrial fibrillation R53.83 Other fatigue Office Visit 11/11/2017 [facility] [place] R53.83 Other fatigue 2:40p Filiberto Weinstein M.D. I10 Essential (primary) hypertension Office Visit 09/21/2017 [facility] [place] I48.2 Chronic atrial 8:50a Filiberto Weinstein M.D. fibrillation M10.00 Idiopathic gout, unspecified site Office Visit 07/17/2017 10:00a [facility] Nelson Jimenez I48.2 Chronic atrial Of Leann Champion M.D. fibrillation Office Visit 07/13/2017 11:40a DoNotUse Leann Freed I48.2 Chronic atrial Internal [place] Weinstein fibrillation Mina-Arrowhannah sullivan R30.0 Dysuria H93.13 Tinnitus, bilateral M25.572 Pain in left ankle and joints of left foot N30.01 Acute cystitis with hematuria Office Visit 06/12/2017 [facility] Erin S06.0x0D Concussion without 11:00a Neurologic [place] Caputo loss of Services Of [facility] consciousness, subs encntr M48.07 Spinal stenosis, lumbosacral region Office 04/13/2017 [facility] [place] I48.2 Chronic atrial Visit 1:40p annie Gray M.D. Office 04/08/2017 [facility] Joselito Khan S06.0x0D Concussion Visit 9:00a Services Of Leann Parisiy, without loss of M.D. 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 Office 02/02/2017 Orthopedic Services Of Malachi Grace, S76.112A Strain of left Visit 10:30a Cade Tyson quadriceps muscle, fascia and tendon, init Office 01/16/2017 [place] [facility] atrial Visit 3:15p Leann Cahmpion M.D. fibrillation I35.0 Nonrheumatic aortic (valve) stenosis Office Visit 01/07/2017 [facility] [place] Z00.00 Encntr for 10:30a Filiberto Weinstein M.D. general adult medical exam w/o abnormal findings G47.00 Insomnia, unspecified I48.1 Persistent atrial fibrillation Office Visit 12/09/2016 [facility] Andi E. M54.2 Cervicalgia 11:00a Filiberto Ellison M.D. Office Visit 11/19/2016 [place] [facility] Persistent atrial 12:15p Leann Champion M.D. fibrillation I35.0 Nonrheumatic aortic (valve) stenosis Office Visit 11/03/2016 [facility] [place] M48.06 Spinal 8:10a Filiberto Weinstein M.D. 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 Office 08/19/2016 [facility] [place] L82.1 Other seborrheic Visit 1:00p Filiberto Weinstein M.D. keratosis Office 08/06/2016 [place] [facility] I[facility].1 Persistent atrial Visit 8:30a Leann Champion M.D. fibrillation I35.0 Nonrheumatic aortic (valve) stenosis Office 08/04/2016 [facility] [place] E78.5 Hyperlipidemia, Visit 11:50a mookie Gray M.D. A09 Infectious gastroenteritis and colitis, unspecified Office Visit 07/04/2016 [facility] Persistent atrial Of Leann Champion M.D. fibrillation R94.31 Abnormal electrocardiogram [ECG] [EKG] I10 Essential (primary) hypertension Office 06/04/2016 [facility] [place] M48.06 Spinal stenosis, Visit 8:50a Filiberto Weinstein M.D. lumbar region Office 06/03/2016 [place] [facility] Paroxysmal atrial Visit 11:00a Leann Champion M.D. fibrillation Office [facility]04[facility] J[facility].9 Chronic Visit 3:00p Leann Champion M.D. obstructive pulmonary disease, unspecified I48.1 Persistent atrial fibrillation R94.31 Abnormal electrocardiogram [ECG] [EKG] Office 04/01/2016 [facility] [place] E78.5 Hyperlipidemia, Visit 8:50a mookie Gray M.D. R73.01 Impaired fasting glucose F17.218 Nicotine dependence, cigarettes, w oth disorders N39.0 Urinary tract infection, site not specified N39.490 Overflow incontinence Office Visit 03/17/2016 [facility] [place] J44.9 Chronic 11:50a Filiberto Weinstein M.D. obstructive pulmonary disease, unspecified F17.218 Nicotine dependence, cigarettes, w oth disorders Z23 Encounter for immunization M10.00 Idiopathic gout, unspecified site Z13.220 Encounter for screening for lipoid disorders I48.1 Persistent atrial fibrillation Office Visit 02/11/2016 3:00p Orthopedic Malachi Grace M76.11 Psoas tendinitis, Services Of [place] right hip C.M.A. Office Visit 01/02/2016 11:10a [facility] [place] R15.1 Fecal smearing Mina Beau Weinstein M.D. N39.41 Urge incontinence J44.9 Chronic obstructive pulmonary disease, unspecified Office Visit 10/12/2015 9:00a [place] [facility] Nelson Jimenez I48.1 Persistent atrial Of Leann Champion M.D. fibrillation R94.31 Abnormal electrocardiogram [ECG] [EKG] R55 Syncope and collapse Office Visit 09/21/2015 2:00p [facility] Nelson Jimenez I48.91 Unspecified atrial Of Leann Champion M.D. fibrillation R94.31 Abnormal electrocardiogram [ECG] [EKG] Z01.810 Encounter for preprocedural cardiovascular examination I48.1 Persistent atrial fibrillation Office Visit 09/06/2015 11:51a [facility] David Schwarz R79.89 Other specified Of Leann Casiano, DO abnormal FACC findings of blood chemistry R41.82 Altered mental status, unspecified I48.0 Paroxysmal atrial fibrillation Office Visit 09/06/2015 11:03a [facility] I21.4 Non-St elevation Assoc,palmira Brown M.D. ([facility]) Hospitalists myocardial infarction I48.91 Unspecified atrial fibrillation R55 Syncope and collapse Office Visit 09/05/2015 11:02a [facility] I21.4 Non-St elevation Assoc,palmira Chris NP ([facility]) Hospitalists myocardial infarction R55 Syncope and collapse I48.91 Unspecified atrial fibrillation Office Visit 09/05/2015 [place] Anahi Pacheco, R94.31 Abnormal 11:18a Cardiology Of [place] electrocardiogram Leann [ECG] [EKG] R79.89 Other specified abnormal findings of blood chemistry I48.0 Paroxysmal atrial fibrillation R41.82 Altered mental status, unspecified Office Visit 07/13/2015 8:45a [facility] [facility] Nelson Jimenez I48.0 Paroxysmal atrial Of Leann Champion M.D. fibrillation R94.31 Abnormal electrocardiogram [ECG] [EKG] Office Visit 06/06/2015 [facility] Malachi Grace, M17.11 Unilateral primary 3:15p Services Of [place] osteoarthritis, right C.M.A. knee Z96.652 Presence of left artificial knee joint Office Visit 04/26/2015 9:45a [facility] [facility] Nelson Jimenez I48.0 Paroxysmal atrial Of [facility] Marb[place] Champion fibrillation R94.31 Abnormal electrocardiogram [ECG] [EKG] Office Visit 05/22/2014 [facility] Rita 840.9 Sprains & Strains 2:15p Services Of [place] Sosa Shoulder & Upper Arm C.M.A. Unspec Office Visit 05/10/2014 Keisha Jimenez 427.31 Atrial Fibrillation 10:15a Cardiology Of [place] Champion [facility] Office Visit 11/24/2013 Betty Khan 724.4 Neuritis Or 11:45a Neurologic Cowdery, Radiculitis Thoracic Services Of Leann Tyson Or Lumbosacral Unspec Office Visit 09/22/2013 Keisha Jimenez 794.31 Electrocardiogram 9:45a Cardiology Of [place] Champion (ECG) (EKG) Abnormal [facility] 427.31 Atrial Fibrillation Office Visit 08/25/2013 12:45p [facility] [facility] Nelson Jimenez 427.31 Atrial Of Leann Champion M.D. 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 Services Of [facility] Office Visit 03/16/2013 Betty Khan 736.79 Deformity Ankle & 3:00p Neurologic [place] Caputo Foot Other Acquired Services Of [facility] 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 Leg Office Visit 09/22/2012 Orthopedic Cher French.16 Osteoarthrosis 10:30a Services Of [place] Localized Prim Lower C.M.A. Leg Office Visit 06/24/2012 [facility] Internal Andi Cade 427.31 Atrial Fibrillation 10:20a [facility] Office Visit 06/10/2012 [facility] Michael Jimenez 682.6 Cellulitis & Abscess 3:00p For Infectious [place], Leg Except Foot Diseases MDex Office Visit 05/07/2012 [place] Nelson Jimenez 427.31 Atrial Fibrillation 10:30a Cardiology Mirtha Champion M.D. [facility] Office Visit 03/24/2012 [place] Nelson Jimenez 427.31 Atrial Fibrillation 3:45p Cardiology [place] Champion [facility] 786.05 Shortness Of Breath Office Visit 03/15/2012 12:19p [facility] Nelson Jimenez 427.31 Atrial Of [facility] [place] Champion Fibrillation Office Visit 03/14/2012 12:09p [facility] Nelson Jimenez 427.31 Atrial Of [facility] [place] Champion Fibrillation Office Visit 03/08/2012 2:45p [facility] Nelson Jimenez 427.31 Atrial Of [facility] Marbella Champion Fibrillation 786.05 Shortness Of Breath Office Visit 01/22/2012 3:00p [facility] Michael Jimenez 780.60 Fever, For Infectious Dion ManjarrezD. Unspecified Diseases Office Visit 01/07/2012 8:47a [facility] Michael Jimenez 682.6 Cellulitis & For Infectious Mac, M.D. Abscess Leg Diseases Except Foot 780.60 Fever, Unspecified Office Visit 01/06/2012 8:47a [facility] Michael Jimenez 682.6 Cellulitis & Infectious [place], M.D. Abscess Leg Diseases Except Foot 780.60 Fever, Unspecified Office Visit 01/05/2012 8:46a [facility] López Jimenez 682.6 Cellulitis & Infectious [place], M.D. Abscess Leg Diseases Except Foot 780.60 Fever, Unspecified Office Visit 01/02/2012 2:27p [facility] López Jimenez 682.6 Cellulitis & Infectious [place], M.D. Abscess Leg Diseases Except Foot 780.60 Fever, Unspecified Office Visit 01/01/2012 2:27p [facility] López Jimenez 682.6 Cellulitis & Infectious Dion ManjarrezD. Abscess Leg Diseases Except Foot 780.60 Fever, Unspecified Office Visit 12/31/2011 2:26p [facility] López Jimenez 682.6 Cellulitis & Infectious [place] M.D. Abscess Leg Diseases Except Foot 780.60 Fever, Unspecified Office Visit 12/30/2011 2:26p [facility] López Jimenez 682.6 Cellulitis & Infectious [place] M.D. Abscess Leg Diseases Except Foot 780.60 Fever, Unspecified Office Visit 12/29/2011 2:25p [facility] López Jimenez 682.6 Cellulitis & Infectious [place] M.D. Abscess Leg Diseases Except Foot 780.60 Fever, Unspecified Office 12/28/2011 Betty Benedict S. 794.31 Electrocardiogram Visit 2:21p Cardiology [place] Lynch (ECG) (EKG) Abnormal 790.7 Bacteremia 427.31 Atrial Fibrillation Office 12/27/2011 [place] Qufatoumata S. 794.31 Electrocardiogram Visit 2:15p Cardiology [place] Lynch (ECG) (EKG) Abnormal 790.7 Bacteremia 427.31 Atrial Fibrillation 424.1 Aortic Valve Disorder 424.0 Mitral Valve Disorder Office Visit 12/24/2011 2:21p [facility] López Jimenez 599.0 UTI Urinary Infectious Marbella Manjarrez Tract Infection Diseases Site Not Spec 682.6 Cellulitis & Abscess Leg Except Foot Office Visit 12/23/2011 2:14p [facility] 599.0 UTI Urinary Infectious Marbella Manjarrez Tract Infection Diseases Site Not Spec 682.6 Cellulitis & Abscess Leg Except Foot 786.09 Dyspnea & Respiratory Abnormalities Other Office Visit 10/22/2011 1:45p [facility] Malachi Grace, 715.96 Osteoarthrosis Services Mirtha Tyson Unspec Genlzd Or C.M.ATaylor Localized Lower Leg 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 Office Visit 01/30/2010 2:00p Orthopedic Services Malachi Grace 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 C.MGab Tyson Unspec Lower Leg Office Visit 09/21/2008 1:45a [facility] 786.50 Pain Chest Unspec Assoc,pc Marbella Tracey Hospitalists 786.09 Dyspnea & Respiratory Abnormalities Other Office [facility] 09/20/2008 3[facility]86.50 Pain Chest Assoc,palmira Tyson Unspec Hospitalists Plan of Treatment Future Appointment(s):12/03/2018 3:00 pm - Valencia Davis NP at [facility]11/02/2018 - True Mathews M.D.R94.31 Abnormal electrocardiogram [ECG] [EKG]Z95.2 Presence of prosthetic heart valveNew Therapy :Cardiac RehabFollow up:albina [place] 1 m albina ARSHAD 7 mI48.2 Chronic atrial lhzedwcefyzrP92.00 Dyspnea
--- OUTSIDE RECORDS SUMMARY | 2018-11-11 13:40 | XMS REPORT | Continuity of Care Document ---
:1930 External Reference #:[id number] Author Name Javier Mclaughlin M.D. Address [facility] [place] [address] Care Team Providers Name Role Phone Brenda Ayala MD Care Team Information Cable Splicing Technician Unavailable Brenda Ayala MD Primary Care Physician Unavailable Payers Date Identification Numbers Payment Provider Subscriber Policy Number: [id number] Medicare [place] [employer] PayID: [id number] [address] [place] [address] Policy Number: [id number] BS [place] [employer] PayID: [id number] [address] [address] [place] [address] Family History Date Family Member(s) Observation Comments Father due to Heart Disease () Mother due to Unknown Causes () Social History Type Date Description Comments Sex Unknown ETOH Use Rarely consumes wine Tobacco Use Start: Unknown Patient has never smoked Smoking Status Reviewed: 10/15/18 Patient has never smoked Allergies, Adverse Reactions, Alerts Active Allergies Reaction Severity Comments Date Penicillin 10/15/2018 Vancomycin 10/15/2018 Nitrofurantoin 10/15/2018 Medications Active Medications SIG Qnty Indications Ordering Date Provider Gabapentin Take One Capsule Unknown 300mg Capsules By Mouth In The Morning And AT Bedtime Cartia XT Mauser, 180mg Caps AMINATA Biswas MD 24HR Spiriva Handihaler Inhale The Unknown 18mcg Contents Of One Capsules Capsule Via Handihaler By Mouth Every Evening Digoxin Unknown 125mcg Tablets Chlorthalidone Take One Half Unknown 25mg Tablets Tablet By Mouth Every Day Xarelto Unknown 15mg Tablets Advair HFA Patricia Weinsteinaira 115-21mcg/Act MD Aerosol Fenofibrate Take One Tablet By Unknown 120mg Tablets Mouth Every Day Gabapentin Unknown 100mg Capsules Metoprolol Succinate ER Unknown 50mg Tablets ER 24HR Metaxalone Take One Tablet By Unknown 800mg Tablets Mouth Three Times A Day as Needed For Spasms Calcium Citrate + D Unknown 198-385hm-Vvlh Tablets Culturelle Unknown Capsules Benefiber 1 tb with 8 oz of Unknown Powder water daily in the in the morning Vitamin C Unknown 500mg Capsules Vital Signs Date Vital Result Comment 10/15/2018 10:31am Intraocular Pressure Right Eye 14 mmHg Intraocular Pressure Left Eye 14 mmHg Procedures Date Code Description Status 10/15/2018 20924 Fundus Photography W/Interpretation & Report Completed 10/15/2018 13678 Ophthalmoscopy Initial Completed 10/15/2018 58591 Refraction Completed 10/15/2018 14236 Eye Exam New Comprehensive Completed 07/11/2011 82678 Eye Exam Est Intermediate Completed 06/18/2011 31278 Remove Secondary Cataract, Laser (Yag) Completed 05/02/2011 21400 Fundus Photography W/Interpretation & Report Completed 05/02/2011 70561 Ophthalmoscopy Subsequent Completed 05/02/2011 27674 Eye Exam Est Comprehensive Completed 05/02/2011 10633 Corneal Pachymetry, Unilateral/Bilateral Completed 09/23/2010 61510 Visual Field Exam Extended, Unilateral Or Bilateral Completed 09/23/2010 15074 Eye Exam Est Intermediate Completed 07/19/2010 67212 Eye Exam Est Intermediate Completed 01/01/2010 53281 Eye Exam Est Intermediate Completed 12/03/2009 80225 Extracapsular Cataract Extraction W/Intraocular Lens Completed 11/26/2009 20009 Extracapsular Cataract Extraction W/Intraocular Lens Completed 10/10/2009 11170 Ophthalmoscopy Subsequent Completed 10/10/2009 09601 Ophthalmic Biometry By Partial Coherence Interferometry Completed W/Intra 10/10/2009 93328 Eye Exam Est Comprehensive Completed 09/19/2009 47597 Eye Exam Est Intermediate Completed 08/13/2009 42120 Eye Exam Est Intermediate Completed 01/24/2009 88060 Visual Field Exam Extended, Unilateral Or Bilateral Completed 01/24/2009 10369 Eye Exam Est Intermediate Completed 01/02/2009 96053 Fundus Photography W/Interpretation & Report Completed 01/02/2009 49228 Ophthalmoscopy Initial Completed 01/02/2009 44657 Gonioscopy Completed 01/02/2009 17359 Eye Exam New Comprehensive Completed 01/02/2009 14718 Corneal Pachymetry, Unilateral/Bilateral Completed Plan of Treatment 10/15/2018 - Javier Mclaughlin M.D.H40.013 Open angle with borderline findings, low risk, bilateralFollow up:vf oct nerve next jgcpgF56.1 Presence of intraocular lensFollow up:vf oct nerve next bcoydA82.123 Transient visual loss, bilateralFollow up:vf oct nerve next avail
--- NOTE | 2018-11-11 14:43 | UC ---
Neck Pain HPI - HPI Summary HPI Summary: Onset of neck pain yesterday, which has become much more acute today, such that she has put on a soft collar and essentially stayed in bed. Hx of chronic low back pain, treated at the pain clinic. Recent increase in pain , but her usual back injection has been delayed due to recent TAVR. No radiation of pain to the arms, but does radiate to the anterior neck. Mild headache. No weakness. No recent trauma, no falls. No hx of tick bites [place] - History of Current Complaint Chief Complaint: UCGeneralIllness Stated Complaint: NECK PAIN Time Seen by Provider: 11/11/18 14:34 Hx Obtained From: Patient, Family/Life Enrichment Manager - here with her daughter Onset/Duration Of Injury/Symptoms: Days - 2 Timing: Constant Onset/Duration: Gradual Onset, Lasting Days - 2 Occasional neck pain in the past , but never like this. Severity: Severe Pain Intensity: 9 Location: Discrete At: - cervical spine Character: Aching, Spasmotic Aggravating Factors: Position - lying flat helps., Movement Alleviating Factors: Other: - soft collar, Position Associated Signs & Symptoms: Positive: Headache - very mild. Negative: Bruising , Fever, Nuchal Rigity - Allergies/Home Medications Allergies/Adverse Reactions: Allergies Allergy/AdvReac Type Severity Reaction Status Date / Time penicillin V Allergy Severe Swelling Verified 11/11/18 13:52 Of Face,Lips,& Throat shellfish derived Allergy Pain Verified 11/11/18 13:52 vancomycin Allergy Itching Verified 11/11/18 13:52 PMH/Surg Hx/FS Hx/Imm Hx Cardiovascular History: Atrial Fibrillation, Other - TAVR in September 2018 Other History Of: Anticoagulant Therapy - xarelto - Surgical History Surgical History: Yes Surgery Procedure, Year, and Place: [place] [place] [facility] [place] [facility] [place] REMOV[place] FROM BACK. [place] [facility] [place]GU[place]RHAP[place] [facility] [place] [place] - Family History Known Family History: Positive: Other - states does not know her family history Negative: Cardiac Disease - Social History Occupation: Retired - very active, lives alone Alcohol Use: None Alcohol Amount: ONE GLASS WHITE WINE Substance Use Type: None Substance Use Comment - Amount & Last Used: ONE GLASS WHITE WINE Smoking Status (MU): Former Smoker Type: Cigarettes Amount Used/How Often: 1/2 PPD Have You Smoked in the Last Year: No When Did the Patient Quit Smoking/Using Tobacco: 2016 - Immunization History Most Recent Influenza Vaccination: fall 2014 Most Recent Tetanus Shot: 05/2014 Most Recent Pneumonia Vaccination: 05/2014 Review of Systems All Other Systems Reviewed And Are Negative: Yes Constitutional: Negative: Fever, Chills Skin: Negative: Rash Eyes: Positive: Negative Respiratory: Positive: Negative Cardiovascular: Positive: Other - hx of a fib and TAVR Gastrointestinal: Positive: Negative Genitourinary: Positive: Negative Musculoskeletal: Positive: Arthralgia, Myalgia Neurological: Positive: Headache - very mild. Negative: Weakness, Paresthesia, Numbness Physical Exam Triage Information Reviewed: Yes Appearance: Well-Appearing, Thin Vital Signs: Initial Vital Signs Temp 98 F 11/11/18 13:49 Pulse 92 11/11/18 13:49 Resp 16 11/11/18 13:49 BP 132/66 11/11/18 13:49 Pulse Ox 97 11/11/18 13:49 Eyes: Positive: Conjunctiva Clear ENT: Positive: Pharynx normal Neck: Positive: Tenderness @ - TM joint, and in paraspinal musculature. No bony tenderness Respiratory: Positive: Lungs clear, Normal breath sounds Diagnostics - Radiology No standard instances Radiology Interpretation Completed By: Radiologist Summary of Radiographic Findings: Grade 1 spondylolisthesis C4 on C5, + degenerative change throughout cervical spine with flattening of the lordotic curve. Neck Pain Course/Dx - Course Course Of Treatment: continue analgesics, including tylenol with codeine. Follolw up with PMD. Labs done to rule out Lyme disease. - Differential Dx/Diagnosis Provider Diagnosis: Cervicalgia Discharge - Sign-Out/Discharge Documenting (check all that apply): Patient Departure All imaging exams completed and their final reports reviewed: Yes - Discharge Plan Condition: Stable Disposition: HOME Patient Education Materials: Cervical Strain (ED) Referrals: Lourdes Weinstein MD [Primary Care Provider] - Additional Instructions: Continue use of tylenol with codeine and tylenol --max daily dose of acetaminophen is 3000 mg per day. Continue metoxolone as needed. Continue soft collar as needed. Follow up with Dr. Weinstein as needed. Lyme serology will be availabe in 4 to 5 days. - Billing Disposition and Condition Condition: STABLE Disposition: Home
[2018-11-11] MEDS ORDERED: Acetaminophen / Codeine* #3 (300 MG/30 MG) TAB PO ONE (14:56)
[2018-11-11 16:25] VITALS: BP 134/72
[2018-11-11 18:56] LABS: ABS Basophils 0.1 10^3/ul (0-0.2); ABS Eosinophils 0.1 10^3/ul (0-0.6); ABS Lymphocytes 0.8 10^3/ul (1.0-4.8); ABS Monocytes 0.8 10^3/ul (0-0.8); ABS Neutrophils 6.8 10^3/ul (1.5-7.7); Eosinophil % 1.2 %; Hematocrit 43 % (35-47); Lymphocyte % 9.7 %; Mean Corpuscular HGB Conc 33 g/dL (31-36); Mean Corpuscular Hemoglobin 29 pg (27-31); Mean Corpuscular Volume 88 fL (80-97); Mean Platelet Volume 9.2 fL (7.4-10.4); Nucleated Red Blood Cells % 0.1; Platelet Count 273 10^3/uL (150-450); Red Blood Count 4.84 10^6 /uL (3.70-4.87); Red Cell Distribution Width 14 % (10-15); White Blood Count 8.7 10^3/uL (3.5-10.8)
[2018-11-11 19:05] LABS: Albumin 4.1 g/dL (3.2-5.2); Potassium 3.8 mmol/L (3.5-5.0); Total Bilirubin 0.9 mg/dL (0.2-1.0)
[2018-11-11 19:11] LABS: Albumin/Globulin Ratio 1.8 (1-3); BUN/Creatinine Ratio 30.8 (8-20); C Reactive Protein 33.41 mg/L (<8.01); EGFR African American 104.8 (>60); EGFR Non-African American 86.6 (>60); Globulin 2.3 g/dL (2-4); Total Protein 6.4 g/dL (6.4-8.9)
--- NOTE | 2018-11-12 07:05 | UC ---
- Progress Note Progress Note: CBC and CMP wnl pt with elevated CRP - has been elevated in past recommed f/u pcp as instructed lyme pending maurizio 11/12/18 Course/Dx - Diagnoses Provider Diagnoses: Cervicalgia Discharge - Sign-Out/Discharge Documenting (check all that apply): Post-Discharge Follow Up All imaging exams completed and their final reports reviewed: Yes - Discharge Plan Condition: Stable Disposition: HOME Patient Education Materials: Cervical Strain (ED) Referrals: Lourdes Weinstein MD [Primary Care Provider] - Additional Instructions: Continue use of tylenol with codeine and tylenol --max daily dose of acetaminophen is 3000 mg per day. Continue metoxolone as needed. Continue soft collar as needed. Follow up with Dr. Weinstein as needed. Lyme serology will be availabe in 4 to 5 days. - Billing Disposition and Condition Condition: STABLE Disposition: Home
== END 2018-11-11 16:23 | disposition home or self-care (01) ==
LOC: UCEAST 13:34
DX: M54.2 Cervicalgia (principal); Z79.01 Long term (current) use of anticoagulants; Z95.2 Presence of prosthetic heart valve; I48.91 Unspecified atrial fibrillation; Z87.891 Personal history of nicotine dependence
CPT/HCPCS: 36415; 72050; 80053; 85025; 86140; 86618; 99212; A9270-GY; G0463

== ENCOUNTER 2019-07-02 17:10 | Emergency (ER) | payer MEDICARE, OTHER ==
--- NOTE | 2019-07-02 17:28 | ED ---
GI/ HPI - HPI Summary HPI Summary: This patient is a 88 year old F presenting to [facility] with a chief complaint of intermittent pain due to rectal prolapse for the past 10 days, noticeably worse on the morning of 07/02/19. Pt denies other sx, including fever. Symptoms aggravated by walking, Symptoms alleviated by sitting. Pt reports prolapse is the size of her hand and worsens every day. Pt reports she came to ED 06/24/19 when she was discharged within 7 minutes. as she did not have prolapse. Pt denies surgery or previous hx of prolapse. - History of Current Complaint Chief Complaint: EDRectalPain Time Seen by Provider: 07/02/19 17:18 Stated Complaint: RECTAL PROLAPSE PER PT Hx Obtained From: Patient Onset/Duration: Started Days Ago, Still Present, Worse Since - 07/02/19 Timing: Intermittent, Lasting Days Severity: Moderate Current Severity: Severe Pain Intensity: 8 Location of Pain: Rectal Associated Signs and Symptoms: Positive: Rectal Pain. Negative: Fever Aggravating Factor(s): Walking/Exertion Alleviating Factor(s): Position - Additional Pertinent History Primary Care Physician: VENKATESH - Allergy/Home Medications Allergies/Adverse Reactions: Allergies Allergy/AdvReac Type Severity Reaction Status Date / Time penicillin V Allergy Severe Swelling Verified 07/02/19 17:15 Of Face,Lips,& Throat nitrofurantoin Allergy Unknown Verified 07/02/19 17:15 [From Macrodantin] Reaction Details shellfish derived Allergy Pain Verified 07/02/19 17:15 vancomycin Allergy Itching Verified 07/02/19 17:15 PMH/Surg Hx/FS Hx/Imm Hx Previously Healthy: Yes Endocrine/Hematology History: Reports: Hx Anticoagulant Therapy - xarelto Denies: Hx Diabetes, Hx Thyroid Disease, Hx Anemia, Hx Unexplained Bleeding Cardiovascular History: Reports: Hx Atrial Fibrillation, Hx Congestive Heart Failure, Hx Hypercholesterolemia, Hx Hypertension - ON MEDS, Hx Valvular Heart Disease - aortic valve replacment, Other Cardiovascular Problems/Disorders - HX OF A FIB AND MULTIPLE CARDIOVERSIONS; on xarelto Denies: Hx Aneurysm, Hx Angina, Hx Angioplasty, Hx Auto Implanted Cardiovert Defib, Hx Cardiac Arrest, Hx Cardiomegaly, Hx Congenital Heart Disease, Hx Coronary Artery Disease, Hx Deep Vein Thrombosis, Hx Hypotension, Hx Pacemaker/ ICD, Hx Peripheral Vascular Disease, Hx Rheumatic Fever, Hx Syncope Respiratory History: Reports: Hx Chronic Obstructive Pulmonary Disease (COPD), Hx Pneumonia Denies: Hx Asthma, Hx Chronic Bronchitis, Hx Cystic Fibrosis, Hx Lung Cancer , Hx Pleural Effusion, Hx Pulmonary Edema, Hx Pulmonary Embolism, Hx Seasonal Allergies, Hx Sleep Apnea, Other Respiratory Problems/Disorders GI History: Denies: Hx Ulcer, Other GI Disorders History: Denies: Hx Dialysis Musculoskeletal History: Reports: Hx Arthritis - ALL OVER Denies: Hx Osteoporosis, Other Musculoskeletal History Sensory History: Reports: Hx Contacts or Glasses Denies: Hx Cataracts, Hx Eye Injury, Hx Eye Prosthesis, Hx Glaucoma, Hx Macular Degeneration, Hx Vision Problem, Hx Deafness, Hx Hearing Aid, Hx Hearing Problem, Other Sensory Impairments Opthamlomology History: Reports: Hx Contacts or Glasses Denies: Hx Cataracts, Hx Eye Injury, Hx Eye Prosthesis, Hx Glaucoma, Hx Macular Degeneration, Hx Vision Problem, Other Sensory Impairments Neurological History: Reports: Other Neuro Impairments/Disorders - neuropathy right lower leg. PAIN CLINIC PT. Denies: Hx Dementia, Hx Developmental Delay, Hx Headaches, Hx Migraine, Hx Seizures, Hx Spinal Cord Injury, Hx Transient Ischemic Attacks (TIA) Psychiatric History: Reports: Other Psychiatric Issues/Disorders - claustrophobia Denies: Hx Panic Disorder - Cancer History Hx Chemotherapy: No Hx Radiation Therapy: No - Surgical History Surgery Procedure, Year, and Place: LT knee replacement 2011[place] [place]. rotator cuff right 2002 [facility]. bilat carpal tunnel releases 2002 [facility]. 1992-[facility] REMOVED FROM BACK. BILATERAL CATARACTS [facility]. RT INGUINAL HERNIORRHAPHY 06/14/15 [facility]. MOHS TO NOSE-[place] [place] Hx Anesthesia Reactions: Yes - ATRIAL FIB W/HERNIA & KNEE/CARDIOVERTED PER PT - Immunization History Date of Tetanus Vaccine: 05/2014 Date of Influenza Vaccine: 2014 Infectious Disease History: No Infectious Disease History: Denies: Hx Hepatitis, Hx Human Immunodeficiency Virus (HIV), Hx Tuberculosis , Traveled Outside the [place] in Last 30 Days - Family History Known Family History: Positive: Other - states does not know her family history Negative: Cardiac Disease - Social History Alcohol Use: None Alcohol Amount: ONE GLASS WHITE WINE Hx Substance Use: No Substance Use Type: Reports: None Hx Tobacco Use: Yes Smoking Status (MU): Former Smoker Type: Cigarettes Amount Used/How Often: 1/2 PPD Have You Smoked in the Last Year: No Review of Systems Negative: Fever Positive: pain - rectal pain All Other Systems Reviewed And Are Negative: Yes Physical Exam - Summary Physical Exam Summary: Constitutional: Well-developed, Well-nourished, Alert. (-) Distressed Skin: Warm, Dry HENT: Normocephalic; Atraumatic Eyes: Conjunctiva normal Neck: Musculoskeletal ROM normal neck. (-) JVD, (-) Stridor, (-) Nuchal rigidity Cardio: Rhythm regular, rate normal, Heart sounds normal; Intact distal pulses; Radial pulses are 2+ and symmetric. (-) Murmur Pulmonary/Chest wall: Effort normal. (-) Respiratory distress, (-) Wheezes, (-) Rales Abd: Soft, (-) tenderness, (-) Distension, (-) Guarding, (-) Rebound Musculoskeletal: (-) Edema Neuro: Alert, Oriented x3 Psych: Mood and affect Normal Rectal: scant amount of dry blood, no prolapse. Triage Information Reviewed: Yes Vital Signs On Initial Exam: Initial Vitals Temp Pulse Resp BP Pulse Ox 99.6 F 76 19 161/81 97 07/02/19 17:12 07/02/19 17:12 07/02/19 17:12 07/02/19 17:12 07/02/19 17:12 Vital Signs Reviewed: Yes Procedures - Sedation Patient Received Moderate/Deep Sedation with Procedure: No Diagnostics - Vital Signs Vital Signs Temp Pulse Resp BP Pulse Ox 07/02/19 17:12 99.6 F 76 19 161/81 97 - Laboratory Lab Statement: Any lab studies that have been ordered have been reviewed, and results considered in the medical decision making process. Re-Evaluation - Re-Evaluation First Eval Re-Evaluation Time: 18:00 Comment: Confirmed rectal prolapse after ambulation. GIGU Course/Dx - Course Course Of Treatment: 88 y/o F p/w intermittent rectal prolapse. - initially without problems, however on ambulation, patient did have prolapse. Patient seen by Dr. Tapia of surgery, we'll have her follow up with a rectal surgeon. Patient was given pain medication. - Diagnoses Provider Diagnoses: Rectal prolapse - Physician Notifications Discussed Care Of Patient With: Nelly Tapia Time Discussed With Above Provider: 17:42 Instructed by Provider To: Other - Dr. Tapia will come see her in ED. Discharge ED - Sign-Out/Discharge Documenting (check all that apply): Patient Departure - Discharge Plan Condition: Stable Disposition: HOME Prescriptions: oxyCODONE/Acetamin 5/325 MG* [Percocet 5/325 TAB*] 1 tab PO Q6H PRN 3 Days #12 tab MDD 4 PRN Reason: Pain Patient Education Materials: Rectal Prolapse (ED) Referrals: Lourdes Weinstein MD [Primary Care Provider] - Additional Instructions: You were seen in the emergency department for rectal prolapse. Please follow up with general surgery. Please follow up with your primary care doctor in next 2-3 days and return to emergency department for worsening pain, rectal bleeding, prolonged prolapse, fever, or concerning symptoms. It was a pleasure taking care of you today. - Billing Disposition and Condition Condition: STABLE Disposition: Home - Attestation Statements Document Initiated by Ashok: Yes Documenting Scribe: Devika Shi Provider For Whom Ashok is Documenting (Include Credential): Dr. Karlee Cassidy MD Scribe Attestation: Devika Pelayo, scribed for Dr. Karlee Cassidy MD on 07/02/19 at 2015. Scribe Documentation Reviewed: Yes Provider Attestation: The documentation as recorded by the Devika hsieh accurately reflects the service I personally performed and the decisions made by me, Dr. Karlee Cassidy MD Status of Ashok Document: Viewed
--- OUTSIDE RECORDS SUMMARY | 2019-07-02 18:13 | XMS REPORT ---
:1930 Author Organization [facility] Care Team Providers Name Role Phone Unavailable Unavailable Unavailable Problems This patient has no known problems. Allergies, Adverse Reactions, Alerts Allergy Allergy Status Severity Reaction(s) Onset Inactive Treating Comments Name Type Date Date Clinician Unknown None Active Unknown None Unknown No Known Allergies For This Patient Medications Ordered Filled Start Stop Current Ordering Indication Dosage Frequency Signature Comments Components Medication Medication Date Date Medication? Clinician (SIG) Name Name No Known No Known No None None None Medications Medications For This For This Patient Patient Procedures This patient has no known procedures. Results This patient has no known results.
--- OUTSIDE RECORDS SUMMARY | 2019-07-02 18:13 | XMS REPORT ---
:1930 Author Organization [facility] Care Team Providers Name Role Phone Unavailable [...]
--- OUTSIDE RECORDS SUMMARY | 2019-07-02 18:13 | XMS REPORT ---
:1930 Author Organization [facility] Care Team Providers Name Role Phone Unavailable [...]
--- OUTSIDE RECORDS SUMMARY | 2019-07-02 18:13 | XMS REPORT ---
:1930 Author Organization [facility] Care Team Providers Name Role Phone Unavailable [...]
--- OUTSIDE RECORDS SUMMARY | 2019-07-02 18:13 | XMS REPORT ---
:1930 Author Organization [facility] Care Team Providers Name Role Phone Unavailable [...]
--- OUTSIDE RECORDS SUMMARY | 2019-07-02 18:13 | XMS REPORT ---
:1930 Author Organization [facility] Care Team Providers Name Role Phone Unavailable [...]
--- OUTSIDE RECORDS SUMMARY | 2019-07-02 18:13 | XMS REPORT | Continuity of Care Document ---
:1930 External Reference #:[id number] Author Name Leslie Johnson MD (transmitted by agent of provider Eloisa Jang) Address [address] [facility] [place] [address] Care Team Providers Name Role Phone Michael Manjarrez MD - Infectious Care Team Information Technician Chemical Cleaning [phone] Disease True Calderón MD - Emergency Care Team Information Technician Chemical Cleaning [phone] Medicine Lourdes Weinstein MD - Internal Care Team Information Technician Chemical Cleaning [phone] Medicine Thelma Lewis MD - Care Team Information Technician Chemical Cleaning [phone] Ophthalmology Mohamud Shen MD - Interventional Care Team Information Technician Chemical Cleaning [phone] Pain Medicine Nadia Meléndez M.D. 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 Onset: 03/17/2016 Social History Type Date Description Comments Sex Unknown Tobacco Use Start: Unknown End: Former Cigarette Smoker ETOH Use Occasionally consumes wine Recreational Drug Use Denies Drug Use Tobacco Use Start: Unknown End: Patient is a former Unknown smoker Smoking Status Reviewed: 07/01/19 Patient is a former smoker Exercise Type/Frequency [...] Medications SIG Qnty Indications Ordering Date Provider Metamucil [facility] 2 teaspoon in juice 3units [facility] 01/19/2019 Fiber twice daily Marbella Weinstein 58.6% Powder Acetaminophen-Codeine Twice daily as Unknown 10/25/2018 #3 needed for pain 300-30mg Tablets Fenofibrate take one tablet by 90tabs E78.5 Allan Richards NP 05/13/2018 120mg mouth every day Tablets Shingrix intramuscular x 1 1units [facility] 04/14/2018 50mcg/0.5ML then repeat in 4 Marbella Weinstein Suspension Rec months Diltiazem CD 1 by mouth every 30caps True Minaya 02/11/2018 180mg Caps day, long actingReid M.D. 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 18mcg Capsules handihaler by mouth every evening Gabapentin take 1 tablet in Am Unknown 100mg ... at midday if Capsules needed 300 mg at night Diclofenac Sodium Apply bid prn for Unknown 1% lower back as needed Gel Metaxalone take 1 tablet 2 90tabs [place] 800mg times a day as Marbella Weinstein Tablets needed Gabapentin 300 mg bid and a 120caps Unknown 300mg third dose if needed Capsules Vitamin C 1 po qd Unknown 500mg Capsules Culturelle 1 po qd Unknown Capsules Citracal 1 po qday 90tabs Unknown Petites/Vitamin D [id number] Tablets Medications Administered in Office Medication SIG Qnty [...] CPT Code Status Date Vaccine Lot # [id number] Given 04/11/2019 Pneumococcal Conjugate Vaccine 13 Valent For [id number] Intramuscular Use 35802 Given 01/21/2019 Fluzone High Dose 05991 Given 06/21/2018 Pneumonia Vaccine [id number] 82690 Given 02/16/2018 Fluzone High Dose 86655 Given 03/27/2017 Influenza Virus Vaccine, Quadrivalent, Split, Preservative Free 30365 Given 11/24/2016 Tdap - Tetanus/Diptheria/Acellular Pertussis 73353 Given 03/17/2016 Influ Virus Vaccine, Quadrivalent, Split Virus, Im [id number] Fluzone not PF Vital Signs Date Vital Result Comment 07/01/2019 3:22pm Height 63 inches 5'3" Weight 116.50 lb Heart Rate 71 /min BP Systolic 126 mmHg BP Diastolic 80 mmHg Body Temperature 96.6 F O2 % BldC Oximetry 98 % BMI (Body Mass Index) 20.6 kg/m2 06/28/2019 9:44am Height 63 inches 5'3" Weight 117.00 lb Heart Rate 60 /min BP Systolic Sitting 112 mmHg BP Diastolic Sitting 70 mmHg Respiratory Rate 16 /min Body Temperature 98.8 F BMI (Body Mass Index) 20.7 kg/m2 Results Test Acquired Date Facility Test Result H/L Range Note Lipid Profile 04/27/2019 [facility] Triglycerides 103 mg/dL 1 (Trig/Chol/HDL) [address] [place] [address] [phone] Cholesterol 144 mg/dL 2 HDL Cholesterol 43.7 mg/dL 3 LDL Cholesterol 80 mg/dL 4 Comp Metabolic 04/27/2019 [facility] Sodium 140 mmol/L Normal 135-145 Panel [address] [place] [address] [phone] Potassium 3.9 mmol/L Normal 3.5-5.0 Chloride 102 mmol/L Normal 101-111 Co2 Carbon Dioxide 32 mmol/L Normal 22-32 Anion Gap 6 mmol/L Normal 2-11 Glucose 87 mg/dL Normal 70-100 Blood Urea Nitrogen 12 mg/dL Normal 6-24 Creatinine 0.61 mg/dL Normal 0.51-0.95 BUN/Creatinine Ratio 19.7 Normal 8-20 Calcium 9.0 mg/dL Normal 8.6-10.3 Total Protein 6.2 g/dL Low 6.4-8.9 Albumin 3.8 g/dL Normal 3.2-5.2 Globulin 2.4 g/dL Normal 2-4 Albumin/Globulin Ratio 1.6 Normal 1-3 Total Bilirubin 0.50 mg/dL Normal 0.2-1.0 Alkaline Phosphatase 53 U/L Normal 34-104 Alt 25 U/L Normal 7-52 Ast 46 U/L High 13-39 Egfr Non- 93.0 >60 Egfr 112.5 >60 5 Order 02/14/2019 [facility] Holter Monitor <pending> [address] [place] [address] [phone] Laboratory test 01/07/2019 [facility] Surgical SEE RESULT 6 , [address] [place] [address] [phone] Desirable: <150 Borderline High: 150-199 High: 200-499 Very High: >500 2 Desirable: <200 Borderline High: 200-239 High: >239 3 Low: <40 Desirable: 40-60 High: >60 4 Desirable: <100 Near Optimal: 100-129 Borderline High: 130-159 High: 160-189 Very High: >189 5 Because ethnic data is not always [...] 5 Kidney failure <15 (or dialysis) 6 5691-A:Morphology: erythematous papule with hyperkeratotic scale;DDX: Squamous Cell Carcinoma;Loc 7 SEE RESULT BELOW Name: NICKIOCTOBER : [address]: Carla Morales MD Acct: [id number] Unit: [id number] AGE: 88 Location: [facility] Re01/07/19 SEX: F Status: REG REF SPEC: [id number] SAM: 01/07/[address] [facility] [address]: Carla Morales MD REQ: [id number] RECD: 01/07/19 STATUS: MATHEW ORTEZ DR: Lourdes Weinstein MD _ ORDERED: LEVEL 4/2 COMMENTS: [id number] FINAL DIAGNOSIS 1. Skin, left mid cheek, biopsy: -- Follicular cyst, infundibular type. 2. Skin, left mid to lower medial back, biopsy: -- Junctional melanocytic nevus with architectural disorder and moderate cytologic atypia. -- The lesion is excised in the planes of sectioning examined. PRE-OPERATIVE DIAGNOSIS 1) Erythematous papule with hyperkeratotic scale, squamous cell carcinoma note 2 pieces; 2) irregular brown black macule, malignant melanoma GROSS DESCRIPTION 1. The specimen is received in formalin labeled, Left Mid Cheek, and consists of two distinct fragments: a 0.4 x 0.3 x 0.2 cm yoon-white firm to friable nodular skin fragment and a 0.5 x 0.5 cm white-pink triangular skin shave with a 0.3 x 0.2 cm red- brown scabrous lesion. The specimen is differentially inked, serially sectioned and submitted entirely in one cassette. 2. The specimen is received in formalin labeled, Left Mid to Lower Medial Back, and consists of a 1.0 x 0.7 cm white-pink ovoid skin shave with a 0.3 x 0.3 cm dark brown to black irregular macule. The specimen is inked and serially sectioned and submitted entirely in one cassette. Signed by and Reported on: Janelle Lomas MD 01/10/19 1030 Professional interpretation performed at: Office of MD MARCELO Pearce Lab#: [id number] [address] [place] [address] END OF REPORT DEPARTMENT OF PATHOLOGY, [address] [place] [address] Mathew Head M.D. Director MARCELO # [id number] RUN DATE: 01/10/19 [facility] LAB LIVE PAGE 1 Patient: NICKIMINI [id number] (Continued) Procedures Date Code Description Status 05/19/2019 76589 EKG Tracing & Interpretation Completed 02/16/2019 60543 Holter Monitor Review (24 hr)dr review & interp only Completed 02/14/2019 92334 ECG Monitor/Recording W/Visual Superimposition Completed Scanning 02/14/2019 79129 ECG Monitor/Recording W/Visual Superimposition Completed Scanning 01/31/2019 816851552 Diabetic Retinal Eye Exam Completed 05/20/2017 258971297 Diabetic Retinal Eye Exam Completed 04/30/2017 918537877 Diabetic Retinal Eye Exam Completed 05/30/2015 64464125 Mammogram Completed 06/12/2003 14066280 Colonoscopy Completed Medical Devices Description No Information Available Encounters Type Date Location Provider Dx Diagnosis Office Visit 05/19/2019 [facility] Valencia Davis NP R53.83 Other fatigue 2:20p I48.21 Permanent atrial fibrillation Z79.01 [facility] (current) use of anticoagulants I35.0 Nonrheumatic aortic (valve) stenosis Office Visit 04/04/2019 [place] Malachi Grace M17.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 fibrillation Ccmob Office Visit 01/05/2019 10:10a [facility] Internal [place] I48.2 Chronic atrial Medicine - Marbella Weinstein fibrillation Ccmob Assessments Date Code Description Provider 06/28/2019 K62.3 Rectal prolapse Julio César Fierro MD, FACS 06/28/2019 R15.9 Full incontinence of feces Julio César Fierro MD, FACS 05/26/2019 M54.5 Low back pain Leslie Johnson MD 05/26/2019 I48.91 Unspecified atrial fibrillation Leslie Johnson MD 05/26/2019 I10 Essential (primary) hypertension Leslie Johnson MD 05/19/2019 I48.91 Unspecified atrial fibrillation True Mathews M.D. 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 examination without abnormal findings 04/11/2019 E78.49 Other hyperlipidemia Lourdes Weinstein M.D. 04/11/2019 Z23 Encounter for immunization Lourdes Weinstein M.D. 04/04/2019 M17.11 Unilateral primary osteoarthritis, right Malachi Grace M.D. knee 03/09/2019 M17.11 Unilateral primary osteoarthritis, right Malachi Grace M.D. knee 03/09/2019 Z96.652 Presence of left artificial knee joint Malachi Grace M.D. 02/16/2019 I48.20 Chronic atrial fibrillation, unspecified True Mathews M.D. 02/14/2019 I48.2 Chronic atrial fibrillation True Mathews M.D. 02/14/2019 I48.2 Chronic atrial fibrillation Nurse Visit 01/19/2019 I48.2 Chronic atrial fibrillation Lourdes Weinstein M.D. 01/05/2019 I48.2 Chronic atrial fibrillation Lourdes Weinstein M.D. Plan of Treatment Future Appointment(s):09/26/2019 3:00 pm - Carmela oRsado MD at [facility] Internal Medicine - Ccmob07/19/2019 3:40 pm - True Mathews M.D. at [place] Uqaloaojph85/13/2020 10:00 am - Erin Caputo M.D. at [place] [facility] Functional Status Description No Information Available Mental Status Description No Information Available Referrals Refer to Reason for Referral Status Appt Date [facility] Physical Therapy pelvic PT Sent [address] [place] [address] [phone]
--- OUTSIDE RECORDS SUMMARY | 2019-07-02 18:13 | XMS REPORT ---
:1930 Author Organization [facility] Care Team Providers Name Role Phone Unavailable [...]
--- OUTSIDE RECORDS SUMMARY | 2019-07-02 18:13 | XMS REPORT ---
:1930 Author Organization [facility] Care Team Providers Name Role Phone Unavailable [...]
--- OUTSIDE RECORDS SUMMARY | 2019-07-02 18:13 | XMS REPORT | Continuity of Care Document ---
:1930 External Reference #:[id number] Author Name Julio César Fierro MD, FACS (transmitted by agent of provider Kelechi Charles) Address [address] [facility] [address] [place] [address] Care Team Providers Name Role Phone Michael Manjarrez MD - Infectious Care Team Information Gourmet Coffee Attendant Disease True Calderón MD - Emergency Care Team Information Gourmet Coffee Attendant Medicine Lourdes Weinstein MD - Internal Care Team Information Gourmet Coffee Attendant [phone] Medicine Thelma Lewis MD - Care Team Information Gourmet Coffee Attendant [phone] Ophthalmology Mohamud Shen MD - Interventional Care Team Information Gourmet Coffee Attendant Pain Medicine Nadia Meléndez M.D. 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 Problems Active Problems Provider Date Atrial fibrillation [...] a former Unknown smoker Smoking Status Reviewed: 06/28/19 Patient is a former smoker Exercise Type/Frequency [...] Metamucil [facility] 2 teaspoon in juice 3units [facility] 01/19/2019 Fiber twice daily Marbella Weinstein 58.6% Powder Acetaminophen-Codeine Twice daily as Unknown 10/25/2018 #3 needed for pain 300-30mg Tablets Fenofibrate take one tablet by 90tabs E78.5 Allan Richards NP 05/13/2018 120mg mouth every day Tablets Shingrix intramuscular x 1 1units [place] 04/14/2018 50mcg/0.5ML then repeat in 4 Marbella [...] mwf 45tabs Valencia Davis, 06/24/2016 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 03/16/2017 Injection Depomedrol 40MG Malachi Grace M.D. 10/20/2016 Injection Depomedrol 40MG Malachi Grace M.D. 06/06/2015 Injection Depomedrol 80MG Malachi Grace M.D. 10/08/2012 Injection Inj, Regadenoson, 0.1 MG Nelson Champion M.D. 03/26/2012 Injection Technetium TC 99M Tetrofosmin, Nelson Champion M.D. 03/26/2012 Per Unit Dose Up To 40 Millicuries Injection Depomedrol 80MG Malachi Grace M.D. 10/22/2011 Injection Immunizations CPT Code Status Date Vaccine Lot # [id number] Given 04/11/2019 Pneumococcal Conjugate Vaccine 13 Valent For [id number] Intramuscular Use 67331 Given 01/21/2019 Fluzone High Dose 92649 Given 06/21/2018 Pneumonia Vaccine [id number] 45819 Given 02/16/2018 Fluzone High Dose 14297 Given 03/27/2017 Influenza Virus Vaccine, Quadrivalent, Split, Preservative Free 77396 Given 11/24/2016 Tdap - Tetanus/Diptheria/Acellular Pertussis 14429 Given 03/17/2016 Influ Virus Vaccine, Quadrivalent, Split Virus, Im [id number] Fluzone not PF Vital Signs Date Vital Result Comment 06/28/2019 9:44am Height 63 inches 5'3" Weight 117.00 lb Heart Rate 60 /min BP Systolic Sitting 112 mmHg BP Diastolic Sitting 70 mmHg Respiratory Rate 16 /min Body Temperature 98.8 F BMI (Body Mass Index) 20.7 kg/m2 05/26/2019 9:29am Height 63 inches 5'3" Weight 120.00 lb Heart Rate 82 /min BP Systolic Sitting 123 mmHg BP Diastolic Sitting 78 mmHg Body Temperature 97.5 F O2 % BldC Oximetry 97 % BMI (Body Mass Index) 21.3 kg/m2 Results Test Acquired Date Facility Test Result H/L Range Note Lipid Profile 04/27/2019 [facility] Triglycerides 103 mg/dL 1 (Trig/Chol/HDL) [address] [place] [address] [phone] Cholesterol 144 mg/dL 2 HDL Cholesterol 43.7 mg/dL 3 LDL Cholesterol 80 mg/dL 4 Comp Metabolic 04/27/2019 [facility] Sodium 140 mmol/L Normal 135-145 Panel [address] [place] [address] [phone] Potassium 3.9 mmol/L Normal 3.5-5.0 Chloride 102 [...] >60 Egfr 112.5 >60 5 Order 02/14/2019 [facility] Holter Monitor <pending> [address] [place] [address] [phone] Laboratory test 01/07/2019 [facility] Surgical SEE RESULT 6 , [address] [place] [address] [phone] 1 Desirable: <150 Borderline High: 150-199 High: [...] 5 Kidney failure <15 (or dialysis) 6 1191-A:Morphology: erythematous papule with hyperkeratotic scale;DDX: Squamous Cell Carcinoma;Loc 7 SEE RESULT BELOW Name: NICKIMINI : [address]: Carla Morales MD Acct: [id number] Unit: [id number] AGE: 88 Location: [facility] Re01/07/19 SEX: F Status: REG REF SPEC: [id number] SAM: 01/07/19-[address] [facility] [address]: Carla Morales MD REQ: [id number] RECD: 01/07/19 STATUS: MATHEW ORTEZ DR: Lourdes Weinstein MD _ ORDERED: LEVEL 4/2 COMMENTS: [id number] FINAL DIAGNOSIS 1. Skin, left mid cheek, [...] Professional interpretation performed at: Office of MD ASHU PearceDC Lab#: [id number] [address] [place] [address] END OF REPORT DEPARTMENT OF PATHOLOGY, [address] [place] [address] Mathew Head M.D. Director MARCELO # [id number] RUN DATE: 01/10/19 [facility] LAB LIVE PAGE 1 Patient: NCIKIMINI [id number] (Continued) Procedures Date Code Description Status 05/19/2019 10374 EKG Tracing & Interpretation Completed 02/16/2019 72359 Holter Monitor Review (24 hr)dr abraham & kristal only Completed 02/14/2019 95276 ECG Monitor/Recording W/Visual Superimposition Completed Scanning 02/14/2019 79560 ECG Monitor/Recording W/Visual Superimposition Completed Scanning 01/31/2019 086991035 Diabetic Retinal Eye Exam Completed 05/20/2017 889838276 Diabetic Retinal Eye Exam Completed 04/30/2017 803666030 Diabetic Retinal Eye Exam Completed 05/30/2015 16341176 Mammogram Completed 06/12/2003 99884732 Colonoscopy Completed Medical Devices Description No Information Available Encounters Type Date Location Provider Dx Diagnosis Office Visit 05/19/2019 [place] Dory[place] Davis NP R53.83 Other fatigue 2:20p I48.21 Permanent atrial fibrillation Z79.01 custodial (current) use of anticoagulants I35.0 Nonrheumatic aortic (valve) stenosis Office Visit 04/04/2019 [place] Malachi Grace, M17.11 Unilateral primary 10:30[facility], [facility] [place] [facility] Office Visit 03/09/2019 Betty Grace M17.11 Unilateral primary 9:45a [facility]oped[facility] at [facility] osteoarthritis, right [place] knee Z96.652 Presence of left artificial knee joint Office Visit 01/19/2019 10:30a [facility] Internal [place] I48.2 Chronic atrial Medicine Corry Weinstein M.D. 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 fibrillation Ccmob Assessments Date Code Description Provider [...] Mathews M.D. 05/19/2019 R53.83 Other fatigue Valencia Davsi NP 05/19/2019 I48.21 Permanent atrial fibrillation Valencia Davis NP 05/19/2019 Z79.01 custodial (current) use of anticoagulants Valencia Davis NP [...] Treatment Future Appointment(s):09/26/2019 3:00 pm - Carmela Rosado MD at [facility] Internal Medicine - Ccmob07/19/2019 3:40 pm - True Mathews M.D. at [place] Sgxwnjyhce37/13/2020 10:00 am - Erin Caputo M.D. at [place] [facility]06/28/2019 - Julio César Fierro MD, FACSK62.3 Rectal prolapseFollow up :TBDR15.9 Full incontinence of fecesRecommendations:pelvic PT Functional Status Description No Information Available Mental Status Description No Information Available Referrals Description No Information Available
[2019-07-02 19:58] VITALS: BP 174/98
--- NOTE | 2019-07-02 21:53 | CONSULT ---
Consult Consult: DATE OF CONSULT: 07/02/19 REASON FOR CONSULT: Rectal prolapse HPI: Mini Nath is an 88-year-old woman with a history of atrial fibrillation, status post TAVR, COPD, and fecal incontinence who is seen in the ED for rectal prolapse. She reports the prolapse first started about 10 days ago and was reducible. She reported to the ED on 06/24/19 due to rectal bleeding. The physical exam reportedly was unremarkable for bleeding or rectal prolapse, so she was discharged home. She was seen by Dr. Fierro for the rectal prolapse on 06/28/19. At the clinic visit the physical exam was again unremarkable. However, the patient reports that today she has not been able to reduce the prolapse, and she is in severe pain. She has been using Tylenol without relief. She has also been icing the area with a little relief. The prolapse usually happens when she is standing or walking. She continues to be incontinent of stool. She denies abdominal pain or nausea. She called the answering service this afternoon , and I talked with her over the phone earlier today about her symptoms. I recommended going to the ED for examination since there is no documentation of the rectal prolapse. The patient has otherwise been in her usual state of health. She denies fevers, URI symptoms, chest pain, or shortness of breath. She denies rectal bleeding after the ED visit. 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 COPD History of squamous cell cancer of the nose Hyperlipidemia Hypertension Fecal incontinence PSH: TAVR 2016 Left knee replacement 2012 Carpal tunnel release Right inguinal hernia repair 2016 Rotator cuff repair HOME MEDICATIONS: Metamucil [facility] Fiber 58.6 % 2 teaspoon in juice twice daily Fenofibrate 120 mg take one tablet by mouth every day Shingrix 50 mcg/0.5ML intramuscular x 1 then repeat in 4 months Diltiazem CD 180 mg 1 by mouth every day, long acting, use generic Digoxin 125 mcg take one tablet by mouth every day Tylenol Extra Strength 500 mg 2 tab twice a day as needed up to 4 daily Chlorthalidone 25 mg 1/2 tab by mouth mwf only Xarelto 15 mg 1 by mouth every day Citracal Petites/Vitamin D 200-250 MG-Unit 1 po qday Culturelle 1 po qd Vitamin C 500 mg 1 po qd Gabapentin 300mg 300 mg bid and a third dose if needed Metaxalone 800 mg take 1 tablet 2 times a day as needed Diclofenac Sodium 1 % Apply bid prn for lower back as needed Gabapentin 100 mg take 1 tablet in AM ... at midday if needed 300 mg at night Spiriva Handihaler 18 mcg inhale the contents of one capsule via handihaler by mouth every evening Metoprolol Succinate ER 25 mg 1/2 tablet by mouth Thursday, Thursday, Thursday Allergies penicillin V Allergy (Severe, Verified 07/02/19 17:15) Swelling Of Face,Lips,& Throat nitrofurantoin [From Macrodantin] Allergy (Verified 07/02/19 17:15) Unknown Reaction Details shellfish derived Allergy (Verified 07/02/19 17:15) Pain vancomycin Allergy (Verified 07/02/19 17:15) Itching FH: Unknown by patient. SH: Quit smoking a few years ago and had smoked for several years before quitting. She denies alcohol or drug use. [place] and has an active lifestyle. She does not have family but does have a few neighbors and friends who can help her. ROS: 10-point review of systems was obtained. Pertinent positives and negatives are in the HPI. PHYSICAL EXAM: Temp Pulse Resp BP Pulse Ox 97.8 F 86 18 174/98 96 07/02/19 19:57 07/02/19 19:57 07/02/19 19:57 07/02/19 19:57 07/02/19 19:57 General: No acute distress. Head: Normocephalic and atraumatic. Eyes: Pupils are equal. No scleral icterus. Mouth: Moist mucous membranes. Neck: Supple. Trachea midline. CV: Regular rate and rhythm. Respiratory: Clear to auscultation bilaterally. No accessory muscle use. Abdomen: Soft, nondistended, nontender. Rectal: Prolapse of full-thickness rectum that appears mildly edematous. Easily reducible. Extremities: Warm. No pedal edema. Skin: Intact. Warm and dry. Neuro: Alert and oriented 3 and moves all extremities equally. Psych: Affect normal. IMPRESSION: 88F with rectal prolapse that is easily reducible. There is no evidence of obstruction. The patient would like to have surgery as soon as possible since she is not able to do [place]. I discussed the patient with Dr. Fierro who will plan to perform the repair. 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 She also understands that she should try to keep the rectum reduced as often as possible, and she may need to limit some of her activities in order to accomplish this. PLAN: Pain medication for severe pain. The patient will call the office Thursday morning to make an appointment with Dr. Fierro. She will also call her PCP and oil house attendant office to schedule appointments for preoperative clearance. Discharge home.
== END 2019-07-02 19:57 | disposition home or self-care (01) ==
LOC: ED 17:10
DX: K62.3 Rectal prolapse (principal); I48.91 Unspecified atrial fibrillation; I11.0 Hypertensive heart disease with heart failure; I50.9 Heart failure, unspecified; I34.0 Nonrheumatic mitral (valve) insufficiency; E78.5 Hyperlipidemia, unspecified; E78.00 Pure hypercholesterolemia, unspecified; J44.9 Chronic obstructive pulmonary disease, unspecified; F40.240 Claustrophobia; Z85.828 Personal history of other malignant neoplasm of skin; Z96.652 Presence of left artificial knee joint; Z87.891 Personal history of nicotine dependence; Z79.01 Long term (current) use of anticoagulants; Z79.899 Other long term (current) drug therapy; Z88.0 Allergy status to penicillin; Z88.1 Allergy status to other antibiotic agents
CPT/HCPCS: 99282

== ENCOUNTER 2020-04-17 19:29 | Inpatient (IN) ==
[2020-04-17] MEDS ORDERED: Morphine 10 MG/ML VIAL (1 ml) IV ONE (20:40)
[2020-04-17] MEDS ORDERED: Ondansetron 4 mg VIAL 2 MG/ML 2 ml VIAL IV ONE (20:40)
[2020-04-17 21:15] LABS: ABS Eosinophils 0.2 10^3/ul (0-0.6); ABS Monocytes 0.5 10^3/ul (0-0.8); ABS Neutrophils 9.2 10^3/ul (1.5-7.7); Eosinophil % 1.5 %; Hematocrit 38 % (35-47); Hemoglobin 12.7 g/dL (12.0-16.0); Lymphocyte % 8.8 %; Mean Corpuscular HGB Conc 33 g/dL (31-36); Mean Corpuscular Hemoglobin 31 pg (27-31); Mean Corpuscular Volume 92 fL (80-97); Mean Platelet Volume 8.4 fL (7.4-10.4); Platelet Count 245 10^3/uL (150-450); Red Blood Count 4.14 10^6 /uL (3.70-4.87); Red Cell Distribution Width 15 % (10-15); White Blood Count 10.9 10^3/uL (3.5-10.8)
[2020-04-17 21:20] LABS: INR 1.94 (0.82-1.09)
[2020-04-17 21:32] LABS: Albumin 3.7 g/dL (3.2-5.2); Albumin/Globulin Ratio 1.5 (1-3); BUN/Creatinine Ratio 28.6 (8-20); Calcium 9.2 mg/dL (8.6-10.3); EGFR African American 108.2 (>60); EGFR Non-African American 89.4 (>60); Globulin 2.4 g/dL (2-4); Total Bilirubin 0.5 mg/dL (0.2-1.0); Total Protein 6.1 g/dL (6.4-8.9)
[2020-04-17] MEDS ORDERED: Morphine 4 MG/ML VIAL (1 ml) IV ONE (23:06)
[2020-04-18 00:05] LABS: Potassium 4.4 mmol/L (3.5-5.0)
[2020-04-18 00:48] LABS: Magnesium 1.9 mg/dL (1.9-2.7)
[2020-04-18] MEDS ORDERED: NS 0.9% 1000 ml BAG 1,000 ML IV SCH (02:15)
[2020-04-18 06:25] LABS: ABS Lymphocytes 0.8 10^3/ul (1.0-4.8); ABS Monocytes 0.5 10^3/ul (0-0.8); ABS Neutrophils 6.7 10^3/ul (1.5-7.7); Eosinophil % 0.4 %; Hematocrit 38 % (35-47); Hemoglobin 12.7 g/dL (12.0-16.0); Lymphocyte % 9.7 %; Mean Corpuscular HGB Conc 34 g/dL (31-36); Mean Corpuscular Hemoglobin 31 pg (27-31); Mean Corpuscular Volume 92 fL (80-97); Mean Platelet Volume 8.8 fL (7.4-10.4); Platelet Count 235 10^3/uL (150-450); Red Blood Count 4.11 10^6 /uL (3.70-4.87); Red Cell Distribution Width 15 % (10-15)
[2020-04-18 06:42] LABS: BUN/Creatinine Ratio 25.4 (8-20); Calcium 8.9 mg/dL (8.6-10.3); EGFR African American 100.7 (>60); EGFR Non-African American 83.3 (>60); Potassium 4.3 mmol/L (3.5-5.0)
[2020-04-18] MEDS: Mometasone/Formoter 200/5 MDI INH SCH (09:57)
[2020-04-18] MEDS ORDERED: Metoprolol Tartrate 5 mg VIAL 5 ml VIAL (1 mg/ml) IV ONE (10:01)
[2020-04-18] MEDS ORDERED: Senna TAB 8.6 mg TAB PO PRN (10:05)
[2020-04-18] MEDS: Heparin 5000 UNITS/ML 1 mL VIAL SUBCUT SCH ×2 (14:20→22:47)
[2020-04-18] MEDS: SPIRIVA Respimat (tiotropium) 2.5 mcg/inh Inhaler INH SCH (19:19)
[2020-04-19] MEDS: Heparin 5000 UNITS/ML 1 mL VIAL SUBCUT SCH ×3 (05:15→21:36)
[2020-04-19 06:32] LABS: ABS Lymphocytes 0.9 10^3/ul (1.0-4.8); ABS Monocytes 0.8 10^3/ul (0-0.8); Eosinophil % 0.3 %; Hematocrit 36 % (35-47); Lymphocyte % 10.4 %; Mean Corpuscular HGB Conc 34 g/dL (31-36); Mean Corpuscular Hemoglobin 31 pg (27-31); Mean Corpuscular Volume 91 fL (80-97); Mean Platelet Volume 9.2 fL (7.4-10.4); Platelet Count 205 10^3/uL (150-450); Red Blood Count 3.88 10^6 /uL (3.70-4.87); Red Cell Distribution Width 15 % (10-15); White Blood Count 8.8 10^3/uL (3.5-10.8)
[2020-04-19 06:40] LABS: Calcium 8.6 mg/dL (8.6-10.3); EGFR African American 74.5 (>60); EGFR Non-African American 61.6 (>60); Potassium 4.1 mmol/L (3.5-5.0)
[2020-04-19] MEDS: Mometasone/Formoter 200/5 MDI INH SCH (08:38)
[2020-04-19] MEDS: Polyethylene Glycol 3350 17 GM PACKET PO SCH (10:20)
[2020-04-19] MEDS: SPIRIVA Respimat (tiotropium) 2.5 mcg/inh Inhaler INH SCH ×2 (17:56→18:07)
[2020-04-20 05:38] LABS: ABS Lymphocytes 0.7 10^3/ul (1.0-4.8); ABS Monocytes 0.7 10^3/ul (0-0.8); ABS Neutrophils 7.3 10^3/ul (1.5-7.7); Hematocrit 33 % (35-47); Hemoglobin 10.9 g/dL (12.0-16.0); Lymphocyte % 8.2 %; Mean Corpuscular HGB Conc 34 g/dL (31-36); Mean Corpuscular Hemoglobin 31 pg (27-31); Mean Corpuscular Volume 92 fL (80-97); Mean Platelet Volume 9.3 fL (7.4-10.4); Platelet Count 204 10^3/uL (150-450); Red Blood Count 3.53 10^6 /uL (3.70-4.87); Red Cell Distribution Width 15 % (10-15); White Blood Count 8.8 10^3/uL (3.5-10.8)
[2020-04-20 05:44] LABS: INR 1.33 (0.82-1.09)
[2020-04-20] MEDS ORDERED: Lactated Ringers 1000 ml BAG 1,000 ML IV SCH (06:00)
[2020-04-20] MEDS ORDERED: Buffered Lidocaine 1% SYRIN 1 ml INTRADERM ONE (06:00)
[2020-04-20 06:35] LABS: Calcium 8.6 mg/dL (8.6-10.3); Potassium 4.2 mmol/L (3.5-5.0)
[2020-04-20] MEDS ORDERED: Clindamycin 900 MG/D5W BAG 900 MG/50 ML BAG IVPB ONE (06:38)
[2020-04-20 06:41] LABS: EGFR African American 88.4 (>60); EGFR Non-African American 73.1 (>60)
[2020-04-20] MEDS ORDERED: ROPIVACAINE 5 MG/ML 30 ML BTL (0.5%) ONE (06:54)
[2020-04-20] MEDS ORDERED: Ketamine HCL 50 mg/ml 10 ml VIAL (500 MG) ONE (07:21)
[2020-04-20] MEDS ORDERED: Bupivacaine 0.5% SDV PF 30ML VIAL ONE (07:24)
[2020-04-20] MEDS ORDERED: Lidocaine 2% PF 5 ML VIAL ONE (07:36)
[2020-04-20] MEDS ORDERED: Propofol 10 MG/ML 20 ML BTL ONE (07:36)
[2020-04-20] MEDS: Polyethylene Glycol 3350 17 GM PACKET PO SCH (08:19)
[2020-04-20] MEDS: Mometasone/Formoter 200/5 MDI INH SCH (08:19)
[2020-04-20] MEDS ORDERED: Phenylephrine 40 mcg/mL 10mL (400mcg) SYRINGE ONE (08:33)
[2020-04-20] MEDS ORDERED: EPHEDrine (Pressors) 50 MG/ML VIAL ONE (08:51)
[2020-04-20] MEDS ORDERED: Ondansetron 4 mg VIAL 2 MG/ML 2 ml VIAL IV PRN (11:37)
[2020-04-20] MEDS ORDERED: fentaNYL 100 mcg/2 ml 50 MCG/ML VIAL IV PRN (11:37)
[2020-04-20] MEDS ORDERED: Naloxone 0.4 mg VIAL 0.4 mg/ml 1 ml VIAL IV PRN (11:37)
[2020-04-20] MEDS ORDERED: Ondansetron ODT 4 mg TAB 4 MG TAB SL PRN (14:20)
[2020-04-20] MEDS ORDERED: Ondansetron ODT 4 mg TAB 4 MG TAB ONE (14:32)
[2020-04-20] MEDS: SPIRIVA Respimat (tiotropium) 2.5 mcg/inh Inhaler INH SCH (18:02)
[2020-04-21 04:39] LABS: Hematocrit 23 % (35-47); Hemoglobin 7.7 g/dL (12.0-16.0); Mean Corpuscular HGB Conc 34 g/dL (31-36); Mean Corpuscular Hemoglobin 31 pg (27-31); Mean Corpuscular Volume 91 fL (80-97); Mean Platelet Volume 9.3 fL (7.4-10.4); Platelet Count 153 10^3/uL (150-450); Red Blood Count 2.49 10^6 /uL (3.70-4.87); Red Cell Distribution Width 14 % (10-15); White Blood Count 5.6 10^3/uL (3.5-10.8)
[2020-04-21 04:52] LABS: BUN/Creatinine Ratio 32.5 (8-20); Calcium 8.4 mg/dL (8.6-10.3); EGFR African American 85.8 (>60); EGFR Non-African American 70.9 (>60); Magnesium 1.9 mg/dL (1.9-2.7); Potassium 3.9 mmol/L (3.5-5.0)
[2020-04-21] MEDS ORDERED: Metoprolol Tartrate 5 mg VIAL 5 ml VIAL (1 mg/ml) IV ONE (07:43)
[2020-04-21] MEDS ORDERED: NS 0.9% 1000 ml BAG 1,000 ML IV SCH ×2 (07:45→16:00)
[2020-04-21] MEDS ORDERED: Metoprolol Tartrate 5 mg VIAL 5 ml VIAL (1 mg/ml) ONE (07:46)
[2020-04-21] MEDS ORDERED: Iohexol 350 (CONTRAST) 500 ML MDV IV ONE ×2 (08:25→12:55)
[2020-04-21 09:54] LABS: ABS Eosinophils 0.2 10^3/ul (0-0.6); ABS Lymphocytes 0.8 10^3/ul (1.0-4.8); ABS Monocytes 0.5 10^3/ul (0-0.8); ABS Neutrophils 5.9 10^3/ul (1.5-7.7); Eosinophil % 2.7 %; Hematocrit 25 % (35-47); Hemoglobin 8.4 g/dL (12.0-16.0); Lymphocyte % 10.3 %; Mean Corpuscular HGB Conc 33 g/dL (31-36); Mean Corpuscular Hemoglobin 31 pg (27-31); Mean Corpuscular Volume 93 fL (80-97); Mean Platelet Volume 10.1 fL (7.4-10.4); Platelet Count 197 10^3/uL (150-450); Red Blood Count 2.75 10^6 /uL (3.70-4.87); Red Cell Distribution Width 14 % (10-15); White Blood Count 7.4 10^3/uL (3.5-10.8)
[2020-04-21 10:03] LABS: Activated Partial Thrombo Time 29.3 seconds (26.0-38.0); INR 1.1 (0.82-1.09)
[2020-04-21 10:11] LABS: Albumin 2.8 g/dL (3.2-5.2); Albumin/Globulin Ratio 1.1 (1-3); BUN/Creatinine Ratio 34.2 (8-20); Calcium 8.6 mg/dL (8.6-10.3); EGFR African American 91.2 (>60); EGFR Non-African American 75.4 (>60); Globulin 2.5 g/dL (2-4); HDL Cholesterol 17.4 mg/dL; Total Bilirubin 0.8 mg/dL (0.2-1.0); Total Protein 5.3 g/dL (6.4-8.9)
[2020-04-21] MEDS ORDERED: Diltiazem (ADVAN VIAL) 100 MG/100 ML ADDV.BAG IV SCH (11:00)
[2020-04-21] MEDS: Mometasone/Formoter 200/5 MDI INH SCH (11:07)
[2020-04-21] MEDS: Polyethylene Glycol 3350 17 GM PACKET PO SCH (11:07)
[2020-04-21] MEDS ORDERED: cefTRIAXone 1 gm/50 mL NS BAG 1 GM/50 ML BAG IVPB SCH (13:00)
[2020-04-21 13:20] LABS: Urine Appearance Cloudy; Urine Bilirubin Negative (Negative); Urine Blood Negative (Negative); Urine Color Yellow; Urine Glucose Negative (Negative); Urine Ketones Negative (Negative); Urine Nitrite Negative (Negative); Urine Protein Negative (Negative); Urine Specific Gravity 1.047 (1.010-1.030); Urine Urobilinogen Negative (Negative)
[2020-04-21] MEDS ORDERED: NS 0.9% 1000 ml BAG 1,000 ML IV ONE (13:31)
[2020-04-21 13:33] LABS: Urine Bacteria Absent (Absent); Urine Red Blood Cell 3+(>10/hpf) (Absent); Urine Squamous Epithelial Cell Present (Absent); Urine White Blood Cell 1+(6-10/hpf) (Absent)
[2020-04-21 16:38] LABS: Hematocrit 24 % (35-47); Hemoglobin 8.1 g/dL (12.0-16.0)
[2020-04-21] MEDS: SPIRIVA Respimat (tiotropium) 2.5 mcg/inh Inhaler INH SCH (19:37)
[2020-04-21] MEDS ORDERED: Heparin 5000 UNITS/ML 1 mL VIAL SUBCUT SCH (22:00)
[2020-04-22 05:34] LABS: ABS Eosinophils 0.2 10^3/ul (0-0.6); ABS Lymphocytes 0.7 10^3/ul (1.0-4.8); ABS Monocytes 0.5 10^3/ul (0-0.8); ABS Neutrophils 4.3 10^3/ul (1.5-7.7); Eosinophil % 4.1 %; Hematocrit 21 % (35-47); Lymphocyte % 12.9 %; Mean Corpuscular HGB Conc 34 g/dL (31-36); Mean Corpuscular Hemoglobin 31 pg (27-31); Mean Corpuscular Volume 92 fL (80-97); Mean Platelet Volume 9.4 fL (7.4-10.4); Platelet Count 181 10^3/uL (150-450); Red Blood Count 2.25 10^6 /uL (3.70-4.87); Red Cell Distribution Width 14 % (10-15); White Blood Count 5.8 10^3/uL (3.5-10.8)
[2020-04-22 05:45] LABS: BUN/Creatinine Ratio 36.9 (8-20); Calcium 7.9 mg/dL (8.6-10.3); EGFR African American 104.3 (>60); EGFR Non-African American 86.2 (>60); Potassium 4.2 mmol/L (3.5-5.0)
[2020-04-22] MEDS: Mometasone/Formoter 200/5 MDI INH SCH (07:49)
[2020-04-22] MEDS: SPIRIVA Respimat (tiotropium) 2.5 mcg/inh Inhaler INH SCH (07:49)
[2020-04-22] MEDS: Polyethylene Glycol 3350 17 GM PACKET PO SCH (09:16)
[2020-04-22 12:24] LABS: TSH Ultra Thyroid Stim Horm 0.89 mcIU/mL (0.34-5.60)
[2020-04-22] MEDS: Cefepime 1 GM in Dextrose 1 GM/50 ML BAG IV SCH (12:47)
[2020-04-22 16:14] LABS: Hematocrit 21 % (35-47); Hemoglobin 6.9 g/dL (12.0-16.0)
[2020-04-22] MEDS ORDERED: Albuterol/Ipratropium NEB.SOL (2.5/0.5 MG) 3 ML NEB.SOLN INH SCH (17:00)
[2020-04-22] MEDS: Albuterol/Ipratropium NEB.SOL (2.5/0.5 MG) 3 ML NEB.SOLN INH SCH (19:11)
[2020-04-22] MEDS ORDERED: Sodium Citrate/Citric Acid LIQ 15 ML UDC PO SCH (21:00)
[2020-04-23] MEDS: Albuterol/Ipratropium NEB.SOL (2.5/0.5 MG) 3 ML NEB.SOLN INH SCH ×2 (01:46→07:03)
[2020-04-23] MEDS: Cefepime 1 GM in Dextrose 1 GM/50 ML BAG IV SCH ×2 (01:56→12:33)
[2020-04-23] MEDS ORDERED: Furosemide 20 mg/2 ml IV VIAL IV SLOW PU ONE ×2 (01:57→02:00)
[2020-04-23 02:15] LABS: ABS Eosinophils 0.2 10^3/ul (0-0.6); ABS Lymphocytes 0.6 10^3/ul (1.0-4.8); ABS Monocytes 0.5 10^3/ul (0-0.8); Eosinophil % 2.6 %; Hematocrit 24 % (35-47); Lymphocyte % 10.1 %; Mean Corpuscular HGB Conc 33 g/dL (31-36); Mean Corpuscular Hemoglobin 30 pg (27-31); Mean Corpuscular Volume 90 fL (80-97); Mean Platelet Volume 8.5 fL (7.4-10.4); Platelet Count 222 10^3/uL (150-450); Red Blood Count 2.65 10^6 /uL (3.70-4.87); Red Cell Distribution Width 14 % (10-15); White Blood Count 6.3 10^3/uL (3.5-10.8)
[2020-04-23 06:21] LABS: ABS Eosinophils 0.2 10^3/ul (0-0.6); ABS Lymphocytes 0.7 10^3/ul (1.0-4.8); ABS Monocytes 0.5 10^3/ul (0-0.8); ABS Neutrophils 4.8 10^3/ul (1.5-7.7); Eosinophil % 3.3 %; Hematocrit 23 % (35-47); Hemoglobin 7.7 g/dL (12.0-16.0); Lymphocyte % 11.7 %; Mean Corpuscular HGB Conc 34 g/dL (31-36); Mean Corpuscular Hemoglobin 31 pg (27-31); Mean Corpuscular Volume 90 fL (80-97); Platelet Count 209 10^3/uL (150-450); Red Cell Distribution Width 14 % (10-15); White Blood Count 6.3 10^3/uL (3.5-10.8)
[2020-04-23 06:28] LABS: BUN/Creatinine Ratio 28.8 (8-20); Calcium 7.9 mg/dL (8.6-10.3); EGFR African American 116.7 (>60); EGFR Non-African American 96.4 (>60); Potassium 3.5 mmol/L (3.5-5.0)
[2020-04-23] MEDS: Mometasone/Formoter 200/5 MDI INH SCH (06:50)
[2020-04-23] MEDS: SPIRIVA Respimat (tiotropium) 2.5 mcg/inh Inhaler INH SCH (07:04)
[2020-04-23] MEDS: Polyethylene Glycol 3350 17 GM PACKET PO SCH (09:39)
[2020-04-23] MEDS ORDERED: Albuterol/Ipratropium NEB.SOL (2.5/0.5 MG) 3 ML NEB.SOLN INH PRN ×2 (12:05→12:30)
[2020-04-23 13:53] VITALS: BP 131/66
[2020-04-23 14:17] LABS: Hematocrit 26 % (35-47); Hemoglobin 8.6 g/dL (12.0-16.0)
== END 2020-04-23 14:50 | DRG 481 ==
LOC: ED 19:29 → SSU 23:42 → ICU 04-21 09:20 → MEDTELE 04-21 17:56
PROVIDERS: ADMIT Internal Medicine; ATTEND Pediatrics

== ENCOUNTER 2020-04-23 12:06 | Inpatient (IN) ==
[2020-04-23] MEDS ORDERED: Senna TAB 8.6 mg TAB PO PRN (16:26)
[2020-04-23] MEDS ORDERED: Magnesium Hydroxide LIQ 30 ML UDC PO PRN (16:26)
[2020-04-23] MEDS: D5W 1/2 NS 1000 ml BAG 1,000 ML IV SCH (18:58)
[2020-04-24] MEDS: Cefepime 1 GM in Dextrose 1 GM/50 ML BAG IV SCH ×2 (00:12→13:14)
[2020-04-24] MEDS: D5W 1/2 NS 1000 ml BAG 1,000 ML IV SCH (08:58)
[2020-04-24] MEDS: SPIRIVA Respimat (tiotropium) 2.5 mcg/inh Inhaler INH SCH (09:31)
[2020-04-24] MEDS: Mometasone/Formoter 200/5 MDI INH SCH (09:32)
[2020-04-25] MEDS: Cefepime 1 GM in Dextrose 1 GM/50 ML BAG IV SCH ×2 (00:04→12:38)
[2020-04-25 06:56] LABS: ABS Eosinophils 0.3 10^3/ul (0-0.6); ABS Monocytes 0.8 10^3/ul (0-0.8); ABS Neutrophils 5.6 10^3/ul (1.5-7.7); Eosinophil % 3.4 %; Hematocrit 24 % (35-47); Hemoglobin 8.2 g/dL (12.0-16.0); Lymphocyte % 12.6 %; Mean Corpuscular HGB Conc 34 g/dL (31-36); Mean Corpuscular Hemoglobin 30 pg (27-31); Mean Corpuscular Volume 91 fL (80-97); Mean Platelet Volume 8.7 fL (7.4-10.4); Platelet Count 342 10^3/uL (150-450); Red Blood Count 2.68 10^6 /uL (3.70-4.87); Red Cell Distribution Width 15 % (10-15); White Blood Count 7.6 10^3/uL (3.5-10.8)
[2020-04-25 07:13] LABS: Albumin 2.5 g/dL (3.2-5.2); Albumin/Globulin Ratio 0.9 (1-3); BUN/Creatinine Ratio 31.8 (8-20); Calcium 8.1 mg/dL (8.6-10.3); EGFR African American 163.7 (>60); EGFR Non-African American 135.3 (>60); Globulin 2.7 g/dL (2-4); Total Protein 5.2 g/dL (6.4-8.9)
[2020-04-25] MEDS: SPIRIVA Respimat (tiotropium) 2.5 mcg/inh Inhaler INH SCH (09:32)
[2020-04-25] MEDS: Mometasone/Formoter 200/5 MDI INH SCH (09:32)
[2020-04-26] MEDS: Cefepime 1 GM in Dextrose 1 GM/50 ML BAG IV SCH ×2 (00:21→13:07)
[2020-04-26] MEDS: Mometasone/Formoter 200/5 MDI INH SCH (08:04)
[2020-04-26] MEDS: SPIRIVA Respimat (tiotropium) 2.5 mcg/inh Inhaler INH SCH (08:04)
[2020-04-27] MEDS: Cefepime 1 GM in Dextrose 1 GM/50 ML BAG IV SCH ×2 (00:01→11:09)
[2020-04-27] MEDS: SPIRIVA Respimat (tiotropium) 2.5 mcg/inh Inhaler INH SCH (09:08)
[2020-04-27] MEDS: Mometasone/Formoter 200/5 MDI INH SCH (09:08)
[2020-04-27 10:12] LABS: ABS Eosinophils 0.2 10^3/ul (0-0.6); ABS Lymphocytes 0.6 10^3/ul (1.0-4.8); ABS Monocytes 0.5 10^3/ul (0-0.8); ABS Neutrophils 4.9 10^3/ul (1.5-7.7); Eosinophil % 3.9 %; Hematocrit 28 % (35-47); Hemoglobin 9.1 g/dL (12.0-16.0); Lymphocyte % 9.2 %; Mean Corpuscular HGB Conc 33 g/dL (31-36); Mean Corpuscular Hemoglobin 30 pg (27-31); Mean Corpuscular Volume 91 fL (80-97); Mean Platelet Volume 8.3 fL (7.4-10.4); Platelet Count 506 10^3/uL (150-450); Red Blood Count 3.04 10^6 /uL (3.70-4.87); Red Cell Distribution Width 15 % (10-15); White Blood Count 6.3 10^3/uL (3.5-10.8)
[2020-04-27] MEDS ORDERED: Al Hydrox/Mg Hydrox/Simet LIQ 30 ML UDC PO PRN (10:28)
[2020-04-27] MEDS ORDERED: Ondansetron ODT 4 mg TAB 4 MG TAB SL PRN (10:29)
[2020-04-28 06:49] VITALS: BP 108/56
[2020-04-28] MEDS: Mometasone/Formoter 200/5 MDI INH SCH (09:42)
[2020-04-28] MEDS: SPIRIVA Respimat (tiotropium) 2.5 mcg/inh Inhaler INH SCH (09:46)
== END 2020-04-28 20:09 | disposition short-term general hospital (02) | DRG 560 ==
LOC: PMRU 15:47
PROVIDERS: ADMIT Physical Medicine & Rehabilitation; ATTEND Physical Medicine & Rehabilitation

== ENCOUNTER 2020-04-23 15:47 | Inpatient (IN) ==
[2020-05-08] MEDS ORDERED: Magnesium Hydroxide LIQ 30 ML UDC PO PRN (16:10)
[2020-05-09 06:09] LABS: ABS Eosinophils 0.1 10^3/ul (0-0.6); ABS Monocytes 0.8 10^3/ul (0-0.8); ABS Neutrophils 8.8 10^3/ul (1.5-7.7); Eosinophil % 1.4 %; Hematocrit 32 % (35-47); Hemoglobin 10.5 g/dL (12.0-16.0); Lymphocyte % 9.5 %; Mean Corpuscular HGB Conc 33 g/dL (31-36); Mean Corpuscular Hemoglobin 29 pg (27-31); Mean Corpuscular Volume 88 fL (80-97); Mean Platelet Volume 7.9 fL (7.4-10.4); Platelet Count 417 10^3/uL (150-450); Red Blood Count 3.59 10^6 /uL (3.70-4.87); Red Cell Distribution Width 15 % (10-15); White Blood Count 10.9 10^3/uL (3.5-10.8)
[2020-05-09 06:30] LABS: Calcium 8.9 mg/dL (8.6-10.3); EGFR African American 116.7 (>60); EGFR Non-African American 96.4 (>60); Potassium 4.3 mmol/L (3.5-5.0); Total Bilirubin 0.7 mg/dL (0.2-1.0)
[2020-05-09] MEDS: Polyethylene Glycol 3350 17 GM PACKET PO PRN (10:47)
[2020-05-09] MEDS: SPIRIVA Respimat (tiotropium) 2.5 mcg/inh Inhaler INH SCH (10:54)
[2020-05-09] MEDS: Mometasone/Formoter 200/5 MDI INH SCH (10:58)
[2020-05-10] MEDS: SPIRIVA Respimat (tiotropium) 2.5 mcg/inh Inhaler INH SCH (09:35)
[2020-05-10] MEDS: Mometasone/Formoter 200/5 MDI INH SCH (09:35)
[2020-05-10] MEDS: Senna TAB 8.6 mg TAB PO PRN (20:43)
[2020-05-11] MEDS: Polyethylene Glycol 3350 17 GM PACKET PO PRN (09:16)
[2020-05-11] MEDS: SPIRIVA Respimat (tiotropium) 2.5 mcg/inh Inhaler INH SCH (09:22)
[2020-05-11] MEDS: Mometasone/Formoter 200/5 MDI INH SCH (09:25)
[2020-05-12] MEDS: SPIRIVA Respimat (tiotropium) 2.5 mcg/inh Inhaler INH SCH (08:10)
[2020-05-12] MEDS: Mometasone/Formoter 200/5 MDI INH SCH (08:11)
[2020-05-13] MEDS: Benzocaine/Menthol LOZ PO PRN (04:45)
[2020-05-13] MEDS: SPIRIVA Respimat (tiotropium) 2.5 mcg/inh Inhaler INH SCH (09:49)
[2020-05-13] MEDS: Mometasone/Formoter 200/5 MDI INH SCH (09:50)
[2020-05-14] MEDS: Benzocaine/Menthol LOZ PO PRN (02:55)
[2020-05-14] MEDS: SPIRIVA Respimat (tiotropium) 2.5 mcg/inh Inhaler INH SCH (08:29)
[2020-05-14] MEDS: Mometasone/Formoter 200/5 MDI INH SCH (08:29)
[2020-05-14] MEDS: Polyethylene Glycol 3350 17 GM PACKET PO PRN (08:31)
[2020-05-15] MEDS: Polyethylene Glycol 3350 17 GM PACKET PO PRN (07:29)
[2020-05-15] MEDS: Mometasone/Formoter 200/5 MDI INH SCH (07:33)
[2020-05-15] MEDS: SPIRIVA Respimat (tiotropium) 2.5 mcg/inh Inhaler INH SCH (07:34)
[2020-05-15] MEDS: Benzocaine/Menthol LOZ PO PRN (09:10)
[2020-05-16] MEDS: Benzocaine/Menthol LOZ PO PRN (04:58)
[2020-05-16] MEDS: SPIRIVA Respimat (tiotropium) 2.5 mcg/inh Inhaler INH SCH (07:34)
[2020-05-16] MEDS: Mometasone/Formoter 200/5 MDI INH SCH (07:34)
[2020-05-16 07:44] LABS: ABS Basophils 0.1 10^3/ul (0-0.2); ABS Eosinophils 0.3 10^3/ul (0-0.6); ABS Lymphocytes 1.2 10^3/ul (1.0-4.8); ABS Monocytes 0.6 10^3/ul (0-0.8); ABS Neutrophils 7.7 10^3/ul (1.5-7.7); Eosinophil % 3.2 %; Hematocrit 35 % (35-47); Hemoglobin 11.2 g/dL (12.0-16.0); Lymphocyte % 12.2 %; Mean Corpuscular HGB Conc 32 g/dL (31-36); Mean Corpuscular Hemoglobin 28 pg (27-31); Mean Corpuscular Volume 87 fL (80-97); Mean Platelet Volume 7.4 fL (7.4-10.4); Platelet Count 438 10^3/uL (150-450); Red Blood Count 4.02 10^6 /uL (3.70-4.87); Red Cell Distribution Width 16 % (10-15); White Blood Count 9.9 10^3/uL (3.5-10.8)
[2020-05-16 08:02] LABS: Albumin 3.2 g/dL (3.2-5.2); Albumin/Globulin Ratio 0.9 (1-3); BUN/Creatinine Ratio 27.8 (8-20); Calcium 9.5 mg/dL (8.6-10.3); EGFR African American 129.2 (>60); EGFR Non-African American 106.8 (>60); Globulin 3.6 g/dL (2-4); Potassium 4.1 mmol/L (3.5-5.0); Total Bilirubin 0.4 mg/dL (0.2-1.0); Total Protein 6.8 g/dL (6.4-8.9)
[2020-05-17] MEDS: Mometasone/Formoter 200/5 MDI INH SCH (07:23)
[2020-05-17] MEDS: SPIRIVA Respimat (tiotropium) 2.5 mcg/inh Inhaler INH SCH (07:24)
[2020-05-17] MEDS: Benzocaine/Menthol LOZ PO PRN (09:02)
[2020-05-18] MEDS: SPIRIVA Respimat (tiotropium) 2.5 mcg/inh Inhaler INH SCH (10:24)
[2020-05-18] MEDS: Mometasone/Formoter 200/5 MDI INH SCH (10:24)
[2020-05-18 20:28] LABS: Urine Appearance Cloudy; Urine Bilirubin Negative (Negative); Urine Blood Negative (Negative); Urine Color Yellow; Urine Glucose Negative (Negative); Urine Ketones Negative (Negative); Urine Nitrite Negative (Negative); Urine Protein Negative (Negative); Urine Specific Gravity 1.011 (1.010-1.030); Urine Urobilinogen Negative (Negative)
[2020-05-18 20:36] LABS: Urine Bacteria Absent (Absent); Urine Red Blood Cell 1+(3-5/hpf) (Absent); Urine Squamous Epithelial Cell Present (Absent); Urine White Blood Cell 3+(>20/hpf) (Absent)
[2020-05-18] MEDS: Senna TAB 8.6 mg TAB PO PRN (20:42)
[2020-05-19 05:12] LABS: ABS Basophils 0.1 10^3/ul (0-0.2); ABS Eosinophils 0.2 10^3/ul (0-0.6); ABS Lymphocytes 0.9 10^3/ul (1.0-4.8); ABS Monocytes 0.8 10^3/ul (0-0.8); ABS Neutrophils 10.2 10^3/ul (1.5-7.7); Eosinophil % 1.8 %; Hematocrit 32 % (35-47); Hemoglobin 10.6 g/dL (12.0-16.0); Lymphocyte % 7.3 %; Mean Corpuscular HGB Conc 33 g/dL (31-36); Mean Corpuscular Hemoglobin 28 pg (27-31); Mean Corpuscular Volume 86 fL (80-97); Mean Platelet Volume 7.5 fL (7.4-10.4); Platelet Count 422 10^3/uL (150-450); Red Blood Count 3.75 10^6 /uL (3.70-4.87); Red Cell Distribution Width 16 % (10-15); White Blood Count 12.2 10^3/uL (3.5-10.8)
[2020-05-19 05:31] LABS: Albumin 3.1 g/dL (3.2-5.2); Albumin/Globulin Ratio 0.9 (1-3); Calcium 9.3 mg/dL (8.6-10.3); EGFR Non-African American 109.1 (>60); Globulin 3.3 g/dL (2-4); Potassium 4.3 mmol/L (3.5-5.0); Total Bilirubin 0.5 mg/dL (0.2-1.0); Total Protein 6.4 g/dL (6.4-8.9)
[2020-05-19] MEDS: Mometasone/Formoter 200/5 MDI INH SCH (09:35)
[2020-05-19] MEDS: SPIRIVA Respimat (tiotropium) 2.5 mcg/inh Inhaler INH SCH (09:37)
[2020-05-19] MEDS: Benzocaine/Menthol LOZ PO PRN ×2 (11:07→20:51)
[2020-05-20] MEDS: Benzocaine/Menthol LOZ PO PRN (05:50)
[2020-05-20] MEDS: SPIRIVA Respimat (tiotropium) 2.5 mcg/inh Inhaler INH SCH (09:43)
[2020-05-20] MEDS: Mometasone/Formoter 200/5 MDI INH SCH (09:44)
[2020-05-20] MEDS: Sulfamethox/Trimethoprim DS TAB 800/160 mg PO SCH (19:42)
[2020-05-21] MEDS: Sulfamethox/Trimethoprim DS TAB 800/160 mg PO SCH (08:08)
[2020-05-21] MEDS: Mometasone/Formoter 200/5 MDI INH SCH (08:12)
[2020-05-21] MEDS: SPIRIVA Respimat (tiotropium) 2.5 mcg/inh Inhaler INH SCH ×2 (08:13→09:25)
[2020-05-21] MEDS: Senna TAB 8.6 mg TAB PO PRN (21:01)
[2020-05-22] MEDS: Mometasone/Formoter 200/5 MDI INH SCH (08:11)
[2020-05-22] MEDS: SPIRIVA Respimat (tiotropium) 2.5 mcg/inh Inhaler INH SCH (08:12)
[2020-05-22] MEDS: Benzocaine/Menthol LOZ PO PRN (20:46)
[2020-05-23 06:10] LABS: ABS Basophils 0.1 10^3/ul (0-0.2); ABS Eosinophils 0.2 10^3/ul (0-0.6); ABS Lymphocytes 0.9 10^3/ul (1.0-4.8); ABS Monocytes 0.5 10^3/ul (0-0.8); ABS Neutrophils 7.2 10^3/ul (1.5-7.7); Eosinophil % 2.1 %; Hematocrit 33 % (35-47); Hemoglobin 10.9 g/dL (12.0-16.0); Lymphocyte % 10.7 %; Mean Corpuscular HGB Conc 33 g/dL (31-36); Mean Corpuscular Hemoglobin 28 pg (27-31); Mean Corpuscular Volume 86 fL (80-97); Mean Platelet Volume 7.8 fL (7.4-10.4); Platelet Count 439 10^3/uL (150-450); Red Blood Count 3.91 10^6 /uL (3.70-4.87); Red Cell Distribution Width 17 % (10-15); White Blood Count 8.8 10^3/uL (3.5-10.8)
[2020-05-23 06:38] LABS: Albumin 3.3 g/dL (3.2-5.2); Albumin/Globulin Ratio 0.9 (1-3); BUN/Creatinine Ratio 29.5 (8-20); Calcium 9.5 mg/dL (8.6-10.3); EGFR African American 112.3 (>60); EGFR Non-African American 92.8 (>60); Globulin 3.5 g/dL (2-4); Potassium 4.2 mmol/L (3.5-5.0); Total Bilirubin 0.5 mg/dL (0.2-1.0); Total Protein 6.8 g/dL (6.4-8.9)
[2020-05-23] MEDS: SPIRIVA Respimat (tiotropium) 2.5 mcg/inh Inhaler INH SCH (09:13)
[2020-05-23] MEDS: Benzocaine/Menthol LOZ PO PRN (09:13)
[2020-05-23] MEDS: Mometasone/Formoter 200/5 MDI INH SCH (09:14)
[2020-05-23] MEDS: Polyethylene Glycol 3350 17 GM PACKET PO PRN (09:21)
[2020-05-24 06:47] VITALS: BP 136/74
[2020-05-24] MEDS: SPIRIVA Respimat (tiotropium) 2.5 mcg/inh Inhaler INH SCH (08:39)
[2020-05-24] MEDS: Mometasone/Formoter 200/5 MDI INH SCH (08:43)
== END 2020-05-24 11:00 | DRG 560 ==
LOC: PMRU 05-08 12:54
PROVIDERS: ADMIT Physical Medicine & Rehabilitation; ATTEND Physical Medicine & Rehabilitation